=== PATIENT | female | born 2000 | race Caucasian/White ===

== ENCOUNTER 2018-02-26 07:06 | Emergency (ER) | payer OTHER ==
[2018-02-26 08:06] LABS: KETONE, URINE AUTO RFX NEGATIVE (NEGATIVE); LEUKOCYTE ESTERASE UR AUTO RFX NEGATIVE (NEGATIVE); NITRITE, URINE AUTO RFX NEGATIVE (NEGATIVE); RBC, URINE AUTO RFX 0 /HPF (0-3); SPECIFIC GRAVITY UR AUTO RFX 1.005 (1.002-1.035); SQUAM EPITHELIAL CELL UR AURFX 0 /HPF (0-6); WBC, URINE AUTO RFX 0 /HPF (0-3)
[2018-02-26 08:25] LABS: BASO # 0.1 10^3/uL (0.0-0.2); BASO % 0.8 % (0.0-1.0); EOS # 0.2 10^3/uL (0.0-0.50); EOS % 2.4 % (0.0-3.0); HEMATOCRIT 40.5 % (36.0-47.0); HEMOGLOBIN 13.1 g/dl (12.0-15.5); IMMATURE GRANULOCYTE % 0.1 % (0-3.0); LYMPH # 3.5 10^3/uL (1.5-6.5); LYMPH % 40.2 % (24.0-44.0); MEAN CORPUSCULAR HEMOGLOBIN 30.1 pg (27.0-33.0); MEAN CORPUSCULAR HGB CONC 32.3 g/dl (32.0-36.5); MEAN CORPUSCULAR VOLUME 93.1 fl (80.0-96.0); MONO # 0.8 10^3/uL (0.0-0.8); MONO % 8.9 % (0.0-5.0); NEUTROPHILS # 4.1 10^3/uL (1.8-7.7); NEUTROPHILS % 47.6 % (36.0-66.0); PLATELET COUNT, AUTOMATED 275 10^3/uL (150-450); RED BLOOD COUNT 4.35 10^6/uL (4.00-5.40); RED CELL DISTRIBUTION WIDTH 11.5 % (11.5-14.5); WHITE BLOOD COUNT 8.7 10^3/uL (4.0-10.0)
[2018-02-26 08:39] LABS: ANION GAP 9 MEQ/L (8-16); BLOOD UREA NITROGEN 16 MG/DL (7-18); CALCIUM LEVEL 8.8 MG/DL (8.5-10.1); CARBON DIOXIDE LEVEL 24 MEQ/L (21-32); CHLORIDE LEVEL 108 MEQ/L (98-107); CREATININE FOR GFR 0.86 MG/DL (0.55-1.30); GLUCOSE, FASTING 95 MG/DL (70-100); POTASSIUM SERUM 4.7 MEQ/L (3.5-5.1); SODIUM LEVEL 141 MEQ/L (136-145)
[2018-02-26 11:22] LABS: CHLAMYDIA DNA AMPLIFICATION NEGATIVE (NEGATIVE); GC DNA AMPLIFICATION NEGATIVE (NEGATIVE)
== END 2018-02-26 10:59 | disposition home or self-care (01) ==
LOC: M ED 07:06
DX: N76.0 Acute vaginitis (principal); R10.2 Pelvic and perineal pain
CPT/HCPCS: 76856

== ENCOUNTER 2018-03-08 00:33 | Emergency (ER) | payer OTHER | END 2018-03-08 01:55 | disposition home or self-care (01) | LOC: M ED 00:33 | DX: H57.89 Other specified disorders of eye and adnexa (principal) | CPT/HCPCS: 99283 ==

== ENCOUNTER 2018-03-09 19:00 | Emergency (ER) | payer OTHER ==
[2018-03-09] MEDS ORDERED: diphenhydrAMINE INJ 50MG/ML VIAL (J1200) As Ordered (19:06)
[2018-03-09] MEDS ORDERED: HALOPERIDOL 5 MG/ML VIAL (J1630) As Ordered (19:06)
[2018-03-09] MEDS ORDERED: LORazepam 2 MG/ML VIAL (J2060) As Ordered (19:40)
[2018-03-09] MEDS: HALOPERIDOL 5 MG/ML VIAL (J1630) IM (20:06)
[2018-03-09] MEDS: diphenhydrAMINE INJ 50MG/ML VIAL (J1200) IM (20:07)
[2018-03-09] MEDS: LORazepam 2 MG/ML VIAL (J2060) IM (20:21)
[2018-03-09] MEDS: NS 1,000 ML IV (20:22)
[2018-03-09 20:27] LABS: HEMATOCRIT 37.9 % (36.0-47.0); HEMOGLOBIN 12.8 g/dl (12.0-15.5); MEAN CORPUSCULAR HEMOGLOBIN 30.3 pg (27.0-33.0); MEAN CORPUSCULAR HGB CONC 33.8 g/dl (32.0-36.5); MEAN CORPUSCULAR VOLUME 89.8 fl (80.0-96.0); PLATELET COUNT, AUTOMATED 289 10^3/uL (150-450); RED BLOOD COUNT 4.22 10^6/uL (4.00-5.40); RED CELL DISTRIBUTION WIDTH 11.2 % (11.5-14.5); WHITE BLOOD COUNT 11.1 10^3/uL (4.0-10.0)
[2018-03-09 21:42] LABS: AMPHETAMINES LEVEL URINE NEGATIVE (NEGATIVE); BARBITURATES URINE NEGATIVE (NEGATIVE); BENZODIAZEPINES URINE NEGATIVE (NEGATIVE); CANNABINOIDS URINE POSITIVE (NEGATIVE); COCAINE METABOLITE URINE NEGATIVE (NEGATIVE); METHADONE URINE NEGATIVE (NEGATIVE); OPIATES URINE NEGATIVE (NEGATIVE); PHENCYCLIDINE URINE NEGATIVE (NEGATIVE)
[2018-03-09 21:45] LABS: HCG, SERUM QUALITATIVE NEGATIVE (NEGATIVE)
[2018-03-09 21:46] LABS: CONTROL LINE HCG INT CTR LINE PRESENT
[2018-03-09 22:14] LABS: ACETAMINOPHEN LEVEL < 2.0 UG/ML (10.0-30.0); ALBUMIN 4.5 GM/DL (3.2-5.2); ALBUMIN/GLOBULIN RATIO 1.18 (1.00-1.93); ALKALINE PHOSPHATASE 55 U/L (45-117); ALT/SGPT 25 U/L (12-78); ANION GAP 12 MEQ/L (8-16); AST/SGOT 27 U/L (7-37); BILIRUBIN,DIRECT 0.1 MG/DL (0.0-0.2); BILIRUBIN,TOTAL 0.4 MG/DL (0.2-1.0); BLOOD UREA NITROGEN 15 MG/DL (7-18); CALCIUM LEVEL 8.6 MG/DL (8.5-10.1); CARBON DIOXIDE LEVEL 23 MEQ/L (21-32); CHLORIDE LEVEL 108 MEQ/L (98-107); CPK CREATINE PHOSPHOKINASE 728 U/L (26-192); CREATININE FOR GFR 0.91 MG/DL (0.55-1.30); ETHYL ALCOHOL (ETHANOL) < 0.003 % (0.000-0.010); GLUCOSE, FASTING 66 MG/DL (70-100); POTASSIUM SERUM 3.7 MEQ/L (3.5-5.1); SALICYLATE LEVEL 2.7 MG/DL (5.0-30.0); SODIUM LEVEL 143 MEQ/L (136-145); TOTAL PROTEIN 8.3 GM/DL (6.4-8.2)
== END 2018-03-10 01:43 | disposition home or self-care (01) ==
LOC: M ED 03-10 01:43
DX: R45.86 Emotional lability (principal); E16.2 Hypoglycemia, unspecified
CPT/HCPCS: J1200

== ENCOUNTER 2018-03-10 21:27 | Inpatient (IN) | payer MEDICAID, OTHER ==
[2018-03-10] MEDS: HALOPERIDOL 5 MG/ML VIAL (J1630) IM ×2 (21:35→22:25)
[2018-03-10] MEDS: diphenhydrAMINE INJ 50MG/ML VIAL (J1200) IM (21:45)
[2018-03-10 23:01] LABS: HEMATOCRIT 37.8 % (36.0-47.0); HEMOGLOBIN 12.7 g/dl (12.0-15.5); MEAN CORPUSCULAR HGB CONC 33.6 g/dl (32.0-36.5); MEAN CORPUSCULAR VOLUME 89.4 fl (80.0-96.0); PLATELET COUNT, AUTOMATED 271 10^3/uL (150-450); RED BLOOD COUNT 4.23 10^6/uL (4.00-5.40); RED CELL DISTRIBUTION WIDTH 11.1 % (11.5-14.5); WHITE BLOOD COUNT 10.7 10^3/uL (4.0-10.0)
[2018-03-10 23:24] LABS: AMPHETAMINES LEVEL URINE NEGATIVE (NEGATIVE); BARBITURATES URINE NEGATIVE (NEGATIVE); BENZODIAZEPINES URINE NEGATIVE (NEGATIVE); CANNABINOIDS URINE POSITIVE (NEGATIVE); COCAINE METABOLITE URINE NEGATIVE (NEGATIVE); METHADONE URINE NEGATIVE (NEGATIVE); OPIATES URINE NEGATIVE (NEGATIVE); PHENCYCLIDINE URINE NEGATIVE (NEGATIVE)
[2018-03-10 23:36] LABS: ACETAMINOPHEN LEVEL < 2.0 UG/ML (10.0-30.0); ALBUMIN 4.4 GM/DL (3.2-5.2); ALBUMIN/GLOBULIN RATIO 1.16 (1.00-1.93); ALKALINE PHOSPHATASE 58 U/L (45-117); ALT/SGPT 33 U/L (12-78); ANION GAP 13 MEQ/L (8-16); AST/SGOT 68 U/L (7-37); BILIRUBIN,DIRECT 0.1 MG/DL (0.0-0.2); BILIRUBIN,TOTAL 0.4 MG/DL (0.2-1.0); BLOOD UREA NITROGEN 11 MG/DL (7-18); CALCIUM LEVEL 8.6 MG/DL (8.5-10.1); CARBON DIOXIDE LEVEL 20 MEQ/L (21-32); CHLORIDE LEVEL 110 MEQ/L (98-107); ETHYL ALCOHOL (ETHANOL) < 0.003 % (0.000-0.010); GLUCOSE, FASTING 73 MG/DL (70-100); POTASSIUM SERUM 3.7 MEQ/L (3.5-5.1); SALICYLATE LEVEL 2.6 MG/DL (5.0-30.0); SODIUM LEVEL 143 MEQ/L (136-145); THYROID STIMULATING HORMONE 0.606 uIU/ML (0.463-3.98); TOTAL PROTEIN 8.2 GM/DL (6.4-8.2)
[2018-03-11] MEDS ORDERED: ACETAMINOPHEN TAB 650MG DOSE (2X325MG) PO (06:30)
[2018-03-11] MEDS ORDERED: OLANZapine ORAL DISINTEGRATING TAB 5MG PO (06:30)
[2018-03-11] MEDS ORDERED: MAALOX 30 ML SUSP *UDC PO (06:30)
[2018-03-11] MEDS ORDERED: MOM 30ML SUSPENSION UDC PO (06:30)
[2018-03-11] MEDS: NICOTINE 21MG/24HR 1 EA TRANSDERMAL TD (09:00)
[2018-03-11] MEDS: LORazepam 2 MG TAB PO (09:27)
[2018-03-11 15:49] LABS: KETONE, URINE AUTO RFX 2+ mg/dL (NEGATIVE); LEUKOCYTE ESTERASE UR AUTO RFX NEGATIVE (NEGATIVE); MUCUS, URINE RFX SMALL (NEGATIVE); NITRITE, URINE AUTO RFX NEGATIVE (NEGATIVE); RBC, URINE AUTO RFX 0 /HPF (0-3); SPECIFIC GRAVITY UR AUTO RFX 1.018 (1.002-1.035); SQUAM EPITHELIAL CELL UR AURFX 9 /HPF (0-6); WBC, URINE AUTO RFX 2 /HPF (0-3)
[2018-03-11] MEDS: hydrOXYzine 50 MG TAB PO (19:44)
[2018-03-12 07:26] LABS: HEMATOCRIT 40.2 % (36.0-47.0); HEMOGLOBIN 13.5 g/dl (12.0-15.5); MEAN CORPUSCULAR HEMOGLOBIN 29.9 pg (27.0-33.0); MEAN CORPUSCULAR HGB CONC 33.6 g/dl (32.0-36.5); MEAN CORPUSCULAR VOLUME 88.9 fl (80.0-96.0); PLATELET COUNT, AUTOMATED 319 10^3/uL (150-450); RED BLOOD COUNT 4.52 10^6/uL (4.00-5.40); RED CELL DISTRIBUTION WIDTH 11.1 % (11.5-14.5); WHITE BLOOD COUNT 9.4 10^3/uL (4.0-10.0)
[2018-03-12 08:04] LABS: ALBUMIN 4.3 GM/DL (3.2-5.2); ALBUMIN/GLOBULIN RATIO 1.08 (1.00-1.93); ALKALINE PHOSPHATASE 64 U/L (45-117); ALT/SGPT 41 U/L (12-78); ANION GAP 10 MEQ/L (8-16); AST/SGOT 66 U/L (7-37); BILIRUBIN,TOTAL 0.4 MG/DL (0.2-1.0); BLOOD UREA NITROGEN 11 MG/DL (7-18); CALCIUM LEVEL 8.9 MG/DL (8.5-10.1); CARBON DIOXIDE LEVEL 24 MEQ/L (21-32); CHLORIDE LEVEL 107 MEQ/L (98-107); CREATININE FOR GFR 0.92 MG/DL (0.55-1.30); GLUCOSE, FASTING 89 MG/DL (70-100); POTASSIUM SERUM 3.6 MEQ/L (3.5-5.1); SODIUM LEVEL 141 MEQ/L (136-145); TOTAL PROTEIN 8.3 GM/DL (6.4-8.2)
[2018-03-12] MEDS: hydrOXYzine 50 MG TAB PO ×2 (09:12→15:58)
[2018-03-12 09:31] LABS: HEPATITIS B SURFACE ANTIGEN NEGATIVE (NEGATIVE)
[2018-03-12 09:57] LABS: HEPATITIS C VIRUS ABY INDEX < 0.0 INDEX (<0.8)
[2018-03-12 09:58] LABS: HEPATITIS B CORE ANTIBODY IGM NEGATIVE (NEGATIVE)
[2018-03-12 10:00] LABS: HEPATITIS A ANTIBODY IGM NEGATIVE (NEGATIVE)
[2018-03-12] MEDS ORDERED: PALIPERIDONE 3 MG ER TAB (INVEGA) PO (14:00)
[2018-03-12] MEDS: PALIPERIDONE 3 MG ER TAB (INVEGA) PO (20:53)
[2018-03-12] MEDS: traZODone 50 MG TAB PO (20:53)
[2018-03-13 07:54] LABS: BASO # 0.1 10^3/uL (0.0-0.2); BASO % 0.9 % (0.0-1.0); EOS # 0.3 10^3/uL (0.0-0.50); EOS % 3.5 % (0.0-3.0); HEMATOCRIT 40.7 % (36.0-47.0); HEMOGLOBIN 13.7 g/dl (12.0-15.5); IMMATURE GRANULOCYTE % 0.1 % (0-3.0); LYMPH # 4.4 10^3/uL (1.5-6.5); LYMPH % 48.4 % (24.0-44.0); MEAN CORPUSCULAR HEMOGLOBIN 30.2 pg (27.0-33.0); MEAN CORPUSCULAR HGB CONC 33.7 g/dl (32.0-36.5); MEAN CORPUSCULAR VOLUME 89.8 fl (80.0-96.0); MONO # 0.9 10^3/uL (0.0-0.8); MONO % 10.1 % (0.0-5.0); NEUTROPHILS # 3.4 10^3/uL (1.8-7.7); PLATELET COUNT, AUTOMATED 311 10^3/uL (150-450); RED BLOOD COUNT 4.53 10^6/uL (4.00-5.40); RED CELL DISTRIBUTION WIDTH 11.4 % (11.5-14.5); WHITE BLOOD COUNT 9.1 10^3/uL (4.0-10.0)
[2018-03-13 08:01] LABS: ALBUMIN 4.5 GM/DL (3.2-5.2); ALBUMIN/GLOBULIN RATIO 1.15 (1.00-1.93); ALKALINE PHOSPHATASE 61 U/L (45-117); ALT/SGPT 41 U/L (12-78); ANION GAP 10 MEQ/L (8-16); AST/SGOT 43 U/L (7-37); BILIRUBIN,TOTAL 0.4 MG/DL (0.2-1.0); BLOOD UREA NITROGEN 12 MG/DL (7-18); CALCIUM LEVEL 9.6 MG/DL (8.5-10.1); CARBON DIOXIDE LEVEL 27 MEQ/L (21-32); CHLORIDE LEVEL 104 MEQ/L (98-107); CREATININE FOR GFR 0.95 MG/DL (0.55-1.30); GLUCOSE, FASTING 91 MG/DL (70-100); POTASSIUM SERUM 4.4 MEQ/L (3.5-5.1); SODIUM LEVEL 141 MEQ/L (136-145); TOTAL PROTEIN 8.4 GM/DL (6.4-8.2)
[2018-03-13] MEDS ORDERED: PALIPERIDONE 3 MG ER TAB (INVEGA) PO (09:00)
[2018-03-13] MEDS: OLANZapine ORAL DISINTEGRATING TAB 5MG PO (11:45)
[2018-03-13] MEDS: PALIPERIDONE 3 MG ER TAB (INVEGA) PO ×2 (11:45→20:30)
[2018-03-13 12:55] LABS: CHOLESTEROL LEVEL 163 MG/DL (<200); CHOLESTEROL RISK RATIO 3.018 (<5); HDL CHOLESTEROL 54 MG/DL (>40); LDL CHOLESTEROL 87 MG/DL (<100); NON-HDL-C 109 MG/DL; TRIGLYCERIDES LEVEL 111 MG/DL (<150)
[2018-03-13] MEDS: traZODone 50 MG TAB PO (21:07)
[2018-03-14] MEDS: PALIPERIDONE 3 MG ER TAB (INVEGA) PO ×2 (08:30→21:03)
[2018-03-14] MEDS: OLANZapine ORAL DISINTEGRATING TAB 5MG PO (08:30)
[2018-03-15] MEDS: OLANZapine ORAL DISINTEGRATING TAB 5MG PO (07:09)
[2018-03-15] MEDS: PALIPERIDONE 3 MG ER TAB (INVEGA) PO ×2 (09:27→20:20)
[2018-03-16] MEDS: OLANZapine ORAL DISINTEGRATING TAB 5MG PO (07:09)
[2018-03-16] MEDS: PALIPERIDONE 3 MG ER TAB (INVEGA) PO ×2 (09:47→20:18)
[2018-03-16] MEDS: traZODone 50 MG TAB PO (20:18)
[2018-03-17] MEDS: PALIPERIDONE 3 MG ER TAB (INVEGA) PO ×2 (08:02→20:28)
[2018-03-17] MEDS: OLANZapine ORAL DISINTEGRATING TAB 5MG PO (11:18)
[2018-03-17] MEDS: traZODone 50 MG TAB PO (20:28)
[2018-03-18] MEDS: PALIPERIDONE 3 MG ER TAB (INVEGA) PO (08:15)
[2018-03-18] MEDS: OLANZapine ORAL DISINTEGRATING TAB 5MG PO (09:32)
== END 2018-03-18 11:17 | disposition home or self-care (01) | DRG 753 ==
LOC: M ED INP 03-11 06:16 → M PSY 03-14 15:56 → M ED 21:27 → M PSY 03-12 16:26
DX: F31.9 Bipolar disorder, unspecified (principal); F70 Mild intellectual disabilities; D72.829 Elevated white blood cell count, unspecified; F12.90 Cannabis use, unspecified, uncomplicated

== ENCOUNTER 2018-07-10 06:13 | Emergency (ER) | payer MEDICAID, OTHER ==
[~2018-07-10] VITALS: Ht 160 cm; Wt 70.5 kg
[2018-07-10 06:13] VITALS: BP 126/69
[~2018-07-10 06:13] MED LIST: FLAG500T PO; IBUP-1022 PO; INVE3TAB2 PO; MULTCAP PO; NAPR-50 PO; PALI1TAB2 PO; ULTR50TA8 PO
[2018-07-10] MEDS ORDERED: ONDANSETRON 4MG/2ML VIAL (J2405) IV ONE (07:00)
[2018-07-10] MEDS ORDERED: NS 1,000 ML IV ONE (07:00)
[2018-07-10 08:30] LABS: BASO # 0.1 10^3/uL (0.0-0.2); BASO % 0.8 % (0.0-1.0); EOS # 0.3 10^3/uL (0.0-0.50); EOS % 3.1 % (0.0-3.0); HEMATOCRIT 41.1 % (36.0-47.0); HEMOGLOBIN 13.5 g/dl (12.0-15.5); LYMPH # 2.5 10^3/uL (1.5-6.5); LYMPH % 30.2 % (24.0-44.0); MEAN CORPUSCULAR HEMOGLOBIN 30.2 pg (27.0-33.0); MEAN CORPUSCULAR HGB CONC 32.8 g/dl (32.0-36.5); MEAN CORPUSCULAR VOLUME 91.9 fl (80.0-96.0); MONO # 0.8 10^3/uL (0.0-0.8); MONO % 9.5 % (0.0-5.0); NEUTROPHILS # 4.7 10^3/uL (1.8-7.7); NEUTROPHILS % 56.2 % (36.0-66.0); PLATELET COUNT, AUTOMATED 294 10^3/uL (150-450); RED BLOOD COUNT 4.47 10^6/uL (4.00-5.40); WHITE BLOOD COUNT 8.3 10^3/uL (4.0-10.0)
[2018-07-10 09:01] LABS: HCG, SERUM QUALITATIVE NEGATIVE (NEGATIVE)
[2018-07-10 09:03] LABS: ALT/SGPT 17 U/L (12-78); BILIRUBIN,TOTAL 0.4 MG/DL (0.2-1.0); BLOOD UREA NITROGEN 11 MG/DL (7-18); CALCIUM LEVEL 9.5 MG/DL (8.5-10.1); CARBON DIOXIDE LEVEL 27 MEQ/L (21-32); CHLORIDE LEVEL 105 MEQ/L (98-107); CREATININE FOR GFR 0.85 MG/DL (0.55-1.30); GLUCOSE, FASTING 106 MG/DL (70-100); POTASSIUM SERUM 4.1 MEQ/L (3.5-5.1); SODIUM LEVEL 138 MEQ/L (136-145)
[2018-07-10 09:04] LABS: ALBUMIN 4.4 GM/DL (3.2-5.2); BILIRUBIN,DIRECT 0.1 MG/DL (0.0-0.2); LIPASE 99 U/L (73-393); TOTAL PROTEIN 8.3 GM/DL (6.4-8.2)
[2018-07-10 10:13] LABS: AMPHETAMINES LEVEL URINE NEGATIVE (NEGATIVE); BARBITURATES URINE NEGATIVE (NEGATIVE); BENZODIAZEPINES URINE NEGATIVE (NEGATIVE); CANNABINOIDS URINE POSITIVE (NEGATIVE); COCAINE METABOLITE URINE NEGATIVE (NEGATIVE); METHADONE URINE NEGATIVE (NEGATIVE); OPIATES URINE NEGATIVE (NEGATIVE); PHENCYCLIDINE URINE NEGATIVE (NEGATIVE)
--- NOTE | 2018-07-10 10:20 | REP ---
Pelvic sonography: History: Left lower quadrant pain times 2 months. Comparison study February 26, 2018. No abnormality. Sonographic findings: Transabdominal scanning is performed. The urinary bladder is essentially empty which does inhibited visualization somewhat. The patient declined transvaginal imaging. Uterine dimensions are normal at this point 8 x 2.6 x 5.1 cm. Endometrial echo is normal and 0.2 cm thick. No focal uterine mass is seen. No free fluid is seen. Normal ovaries seen bilaterally. The right ovary measures 2.4 x 1.6 x 1.5 cm. Left ovary measures 3.2 x 1.6 x 2.3 cm. Impression: No abnormality noted. Electronically Signed by Pasha Cavazos MD 07/10/2018 10:12 A
== END 2018-07-10 10:31 | disposition left against medical advice (07) ==
LOC: M ED 06:13
DX: R10.2 Pelvic and perineal pain (principal); R11.0 Nausea; R42 Dizziness and giddiness

== ENCOUNTER → 2018-10-02 | Outpatient (CLI) | payer MEDICAID, OTHER ==
[~2018-10-02] MED LIST changes: -NAPR-50 PO; +NAPR-837 PO
[2018-10-02 13:52] LABS: HEMATOCRIT 40.8 % (36.0-47.0); HEMOGLOBIN 13.1 g/dl (12.0-15.5); MEAN CORPUSCULAR HGB CONC 32.1 g/dl (32.0-36.5); MEAN CORPUSCULAR VOLUME 93.4 fl (80.0-96.0); PLATELET COUNT, AUTOMATED 330 10^3/uL (150-450); RED BLOOD COUNT 4.37 10^6/uL (4.00-5.40); WHITE BLOOD COUNT 9.4 10^3/uL (4.0-10.0)
[2018-10-02 14:00] LABS: HCG, SERUM QUALITATIVE NEGATIVE (NEGATIVE)
[2018-10-02 14:31] LABS: ALT/SGPT 23 U/L (12-78); BILIRUBIN,TOTAL 0.2 MG/DL (0.2-1.0); BLOOD UREA NITROGEN 14 MG/DL (7-18); CALCIUM LEVEL 8.8 MG/DL (8.5-10.1); CARBON DIOXIDE LEVEL 29 MEQ/L (21-32); CHLORIDE LEVEL 107 MEQ/L (98-107); CREATININE FOR GFR 0.76 MG/DL (0.55-1.30); FREE T4 1.09 NG/DL (0.78-1.33); GLUCOSE, FASTING 91 MG/DL (70-100); POTASSIUM SERUM 4.5 MEQ/L (3.5-5.1); SODIUM LEVEL 139 MEQ/L (136-145); TOTAL PROTEIN 8.3 GM/DL (6.4-8.2)
== END ==
LOC: M SMT 10:48
PROVIDERS: ATTEND Advanced Practice Midwife
DX: R10.2 Pelvic and perineal pain (principal); N92.6 Irregular menstruation, unspecified

== ENCOUNTER → 2018-11-12 | Outpatient (CLI) | payer OTHER, MEDICAID | LOC: M SMT 09:36 | PROVIDERS: ATTEND Advanced Practice Midwife | DX: N64.52 Nipple discharge (principal); N64.4 Mastodynia ==

== ENCOUNTER → 2019-01-14 | Outpatient (CLI) | payer OTHER, MEDICAID ==
--- NOTE | 2019-01-14 16:48 | REP ---
Pelvic Sonography: History: Negative test. Pelvic pain. Question . Findings: Transabdominal and transvaginal scanning are performed. Uterine dimensions are normal 7.1 x 3.3 x 3.7 cm. Endometrial echo is 0.5 cm thick and centrally placed. No free fluid in the cul-de-sac. Visualized bladder ng are smooth. The left ovary could not be seen. The right ovary is normal measuring 3.9 x 2.2 x 2.3 cm. Scanning, particularly endovaginal scanning was somewhat abbreviated and limited due to patient anxiety and difficulty tolerating the examination. Impression: No abnormality noted. The left ovary could not be visualized transabdominally or transvaginally. Normal uterus and right ovary seen. No free fluid. Electronically Signed by Pasha Cavazos MD 01/14/2019 09:07 P
== END ==
LOC: M RAD 14:53
PROVIDERS: ATTEND Nurse Practitioner Family
DX: Z32.02 Encounter for pregnancy test, result negative (principal); R10.9 Unspecified abdominal pain

== ENCOUNTER 2019-02-06 00:45 | Emergency (ER) | payer MEDICAID, OTHER ==
[~2019-02-06] VITALS: Ht 160 cm; Wt 72.1 kg
[2019-02-06 02:23] LABS: AMPHETAMINES LEVEL URINE NEGATIVE (NEGATIVE); BARBITURATES URINE NEGATIVE (NEGATIVE); BENZODIAZEPINES URINE NEGATIVE (NEGATIVE); CANNABINOIDS URINE NEGATIVE (NEGATIVE); COCAINE METABOLITE URINE NEGATIVE (NEGATIVE); METHADONE URINE NEGATIVE (NEGATIVE); OPIATES URINE NEGATIVE (NEGATIVE); PHENCYCLIDINE URINE NEGATIVE (NEGATIVE)
[2019-02-06] MEDS ORDERED: diphenhydrAMINE INJ 50MG/ML VIAL (J1200) As Ordered ONE (02:36)
[2019-02-06] MEDS ORDERED: HALOPERIDOL 5 MG/ML VIAL (J1630) As Ordered ONE (02:37)
[2019-02-06] MEDS ORDERED: LORazepam 2 MG/ML VIAL (J2060) As Ordered ONE (02:37)
[2019-02-06] MEDS ORDERED: HALOPERIDOL 5 MG/ML VIAL (J1630) IM ONE (02:45)
[2019-02-06] MEDS ORDERED: LORazepam 2 MG/ML VIAL (J2060) IM ONE (02:45)
[2019-02-06] MEDS ORDERED: diphenhydrAMINE INJ 50MG/ML VIAL (J1200) IM ONE (02:45)
[2019-02-06 02:49] LABS: HEMATOCRIT 41.7 % (36.0-47.0); HEMOGLOBIN 13.7 g/dl (12.0-15.5); MEAN CORPUSCULAR HEMOGLOBIN 30.2 pg (27.0-33.0); MEAN CORPUSCULAR HGB CONC 32.9 g/dl (32.0-36.5); MEAN CORPUSCULAR VOLUME 91.9 fl (80.0-96.0); PLATELET COUNT, AUTOMATED 419 10^3/uL (150-450); RED BLOOD COUNT 4.54 10^6/uL (4.00-5.40); WHITE BLOOD COUNT 17.4 10^3/uL (4.0-10.0)
[2019-02-06] MEDS ORDERED: LORazepam 2 MG/ML VIAL (J2060) IM STA (03:11)
[2019-02-06] MEDS ORDERED: HALOPERIDOL 5 MG/ML VIAL (J1630) IM STA (03:11)
[2019-02-06 03:32] LABS: ACETAMINOPHEN LEVEL < 2.0 UG/ML (10.0-30.0); ALBUMIN 4.4 GM/DL (3.2-5.2); ALT/SGPT 32 U/L (12-78); BILIRUBIN,DIRECT < 0.1 MG/DL (0.0-0.2); BILIRUBIN,TOTAL 0.2 MG/DL (0.2-1.0); BLOOD UREA NITROGEN 10 MG/DL (7-18); CALCIUM LEVEL 9.4 MG/DL (8.5-10.1); CARBON DIOXIDE LEVEL 22 MEQ/L (21-32); CHLORIDE LEVEL 106 MEQ/L (98-107); CREATININE FOR GFR 1.16 MG/DL (0.55-1.30); ETHYL ALCOHOL (ETHANOL) < 0.003 % (0.000-0.010); GLUCOSE, FASTING 118 MG/DL (70-100); POTASSIUM SERUM 3.9 MEQ/L (3.5-5.1); SODIUM LEVEL 139 MEQ/L (136-145); TOTAL PROTEIN 8.9 GM/DL (6.4-8.2)
[2019-02-06 04:37] LABS: BASO # 0.1 10^3/uL (0.0-0.2); BASO % 0.7 % (0.0-1.0); EOS # 0.5 10^3/uL (0.0-0.5); EOS % 2.8 % (0.0-3.0); LYMPH % 34.3 % (24.0-44.0); MONO # 1.9 10^3/uL (0.0-0.8); MONO % 10.6 % (0.0-5.0); NEUTROPHILS # 8.9 10^3/uL (1.5-8.5); NEUTROPHILS % 51.3 % (36.0-66.0)
--- NOTE | 2019-02-06 07:22 | ECGEPIP ---
[facility] - ED Test Date: 2019-02-06 Pat Name: JUAN FORD Department: Room: - Gender: Female Payroll Benefits Administrator: : 2000 Requested By: SALOME Liz Order Number: [id number] Reading MD: Shukri Currie Measurements Intervals [place] Rate: 85 P: 9 DE: 157 QRS: 65 QRSD: 79 T: 42 QT: 359 QTc: 429 Interpretive Statements SINUS RHYTHM SIMILAR TO 03/11/18 Electronically Signed on 02-06-2019 7:22:04 EDT by Shukri Currie
[2019-02-06 13:14] LABS: HEMATOCRIT 39.5 % (36.0-47.0); MEAN CORPUSCULAR HEMOGLOBIN 30.1 pg (27.0-33.0); MEAN CORPUSCULAR HGB CONC 32.9 g/dl (32.0-36.5); MEAN CORPUSCULAR VOLUME 91.4 fl (80.0-96.0); RED BLOOD COUNT 4.32 10^6/uL (4.00-5.40)
[2019-02-06 13:17] LABS: PLATELET COUNT, AUTOMATED 291 10^3/uL (150-450)
[2019-02-06 15:36] VITALS: BP 132/70
== END 2019-02-06 15:40 ==
LOC: M ED 00:45
DX: F23 Brief psychotic disorder (principal); F99 Mental disorder, not otherwise specified; Z78.1 Physical restraint status
CPT/HCPCS: 80048; 80076; 80307; 81001; 84443; 85027; 93005; 96372; 99285; G0480; J1200; J1630; J2060

== ENCOUNTER → 2019-03-16 | Outpatient (CLI) | payer OTHER ==
[2019-03-16 18:12] LABS: HEMATOCRIT 39.3 % (36.0-47.0); HEMOGLOBIN 12.5 g/dl (12.0-15.5); MEAN CORPUSCULAR HEMOGLOBIN 29.3 pg (27.0-33.0); MEAN CORPUSCULAR HGB CONC 31.8 g/dl (32.0-36.5); PLATELET COUNT, AUTOMATED 315 10^3/uL (150-450); RED BLOOD COUNT 4.27 10^6/uL (4.00-5.40); WHITE BLOOD COUNT 9.1 10^3/uL (4.0-10.0)
[2019-03-16 18:41] LABS: HCG, SERUM QUALITATIVE NEGATIVE (NEGATIVE)
[2019-03-16 18:49] LABS: ALBUMIN 3.9 GM/DL (3.2-5.2); ALT/SGPT 36 U/L (12-78); BILIRUBIN,DIRECT < 0.1 MG/DL (0.0-0.2); BILIRUBIN,TOTAL 0.2 MG/DL (0.2-1.0); BLOOD UREA NITROGEN 12 MG/DL (7-18); CARBON DIOXIDE LEVEL 26 MEQ/L (21-32); CHLORIDE LEVEL 104 MEQ/L (98-107); CREATININE FOR GFR 0.89 MG/DL (0.55-1.30); GLUCOSE, FASTING 83 MG/DL (70-100); POTASSIUM SERUM 4.2 MEQ/L (3.5-5.1); SODIUM LEVEL 138 MEQ/L (136-145); TOTAL PROTEIN 8.2 GM/DL (6.4-8.2)
[2019-03-16 18:51] LABS: PROLACTIN 43.1 NG/ML
[2019-03-16 18:55] LABS: HEMOGLOBIN A1c 5.1 %
== END ==
LOC: M SMT 14:37
DX: F25.0 Schizoaffective disorder, bipolar type (principal)

== ENCOUNTER → 2019-05-19 | Outpatient (REF) | payer OTHER ==
[2019-05-19 12:03] LABS: CORTISOL AM 20.5 UG/DL (4.3-22.4); PROLACTIN 24.6 NG/ML
== END ==
LOC: M LABDRAW1 08:24
PROVIDERS: ATTEND Nurse Practitioner Family
DX: E22.1 Hyperprolactinemia (principal)

== ENCOUNTER → 2020-06-08 | Outpatient (REF) | payer OTHER ==
[2020-06-09 00:17] LABS: URINE PREG TEST NEGATIVE (NEGATIVE)
== END ==
LOC: M LAB 23:49
PROVIDERS: ATTEND Physician Assistant
DX: N91.2 Amenorrhea, unspecified (principal); L98.9 Disorder of the skin and subcutaneous tissue, unspecified

== ENCOUNTER 2020-07-07 23:42 | Inpatient (IN) | payer MEDICAID, OTHER ==
[~2020-07-07] VITALS: Ht 157.5 cm; Wt 99.3 kg
--- OUTSIDE RECORDS SUMMARY | 2020-07-07 23:49 | CCD ---
Author Author [facility] Organization [facility] Address Unknown Phone Unavailable Care Team Providers Care Auto Clocks Repairer Name Role Phone Agusto Ellis MD Unavailable Unavailable Agusto Ellis MD Unavailable Unavailable Agusto Ellis MD Unavailable Unavailable Agusto Ellis MD Unavailable Unavailable Agusto Ellis MD Unavailable Unavailable Agusto Ellis MD Unavailable Unavailable Agusto Ellis MD Unavailable Unavailable Agusto Ellis MD Unavailable Unavailable Agusto Ellis MD Unavailable Unavailable Agusto Ellis MD Unavailable Unavailable Agusto Ellis MD Unavailable Unavailable Agusto Ellis MD Unavailable Unavailable Agusto Ellis MD Unavailable Unavailable Agusto Ellis MD Unavailable Unavailable Agusto Ellis MD Unavailable Unavailable Agusto Ellis MD Unavailable Unavailable Agusto Ellis MD Unavailable Unavailable Agusto Ellis MD Unavailable Unavailable Agusto Ellis MD Unavailable Unavailable Agusto Ellis MD Unavailable Unavailable Agusto Ellis MD Unavailable Unavailable Agusto Ellis MD Unavailable Unavailable Agusto Ellis MD Unavailable Unavailable Agusto Ellis MD Unavailable Unavailable Agusto Ellis MD Unavailable Unavailable Agusto Ellis MD Unavailable Unavailable Agusto Ellis MD Unavailable Unavailable Agusto Ellis MD Unavailable Unavailable Agusto Ellis MD Unavailable Unavailable Agusto Ellis MD Unavailable Unavailable Agusto Ellis MD Unavailable Unavailable Agusto Ellis MD Unavailable Unavailable Agusto Ellis MD Unavailable Unavailable Agusto Ellis MD Unavailable Unavailable Agusto Ellis MD Unavailable Unavailable Agusto Ellis MD Unavailable Unavailable Agusto Ellis MD Unavailable Unavailable Agusto Ellis MD Unavailable Unavailable Agusto Ellis MD Unavailable Unavailable Agusto Ellis MD Unavailable Unavailable Agusto Ellis MD Unavailable Unavailable Agusto Ellis MD Unavailable Unavailable Agusto Ellis MD Unavailable Unavailable Agusto Ellis MD Unavailable Unavailable Agusto Ellis MD Unavailable Unavailable Agusto Ellis MD Unavailable Unavailable Agusto Ellis MD Unavailable Unavailable Agusto Ellis MD Unavailable Unavailable Agusto Ellis MD Unavailable Unavailable Agusto Ellis MD Unavailable Unavailable Agusto Ellis MD Unavailable Unavailable Agusto Ellis MD Unavailable Unavailable Agusto Ellis MD Unavailable Unavailable Agusto Ellis MD Unavailable Unavailable Agusto Ellis MD Unavailable Unavailable Agusto Ellis MD Unavailable Unavailable Agusto Ellis MD Unavailable Unavailable Agusto Ellis MD Unavailable Unavailable Agusto Ellis MD Unavailable Unavailable Agusto Ellis MD Unavailable Unavailable Agusto Ellis MD Unavailable Unavailable Agusto Ellis MD Unavailable Unavailable Agusto Ellis MD Unavailable Unavailable Agusto Ellis MD Unavailable Unavailable Agusto Ellis MD Unavailable Unavailable Agusto Ellis MD Unavailable Unavailable Agusto Ellis MD Unavailable Unavailable Agusto Ellis MD Unavailable Unavailable Agusto Ellis MD Unavailable Unavailable Agusto Ellis MD Unavailable Unavailable Agusto Ellis MD Unavailable Unavailable Agusto Ellis MD Unavailable Unavailable Agusto Ellis MD Unavailable Unavailable Agusto Ellis MD Unavailable Unavailable Agusto Ellis MD Unavailable Unavailable Agusto Ellis MD Unavailable Unavailable Agusto Ellis MD Unavailable Unavailable Agusto Ellis MD Unavailable Unavailable Agusto Ellis MD Unavailable Unavailable Agusto Ellis MD Unavailable Unavailable Agusto Ellis MD Unavailable Unavailable Agusto Ellis MD Unavailable Unavailable Agusto Ellis MD Unavailable Unavailable Agusto Ellis MD Unavailable Unavailable Agusto Ellis MD Unavailable Unavailable Agusto Ellis MD Unavailable Unavailable Agusto Ellis MD Unavailable Unavailable Agusto Ellis MD Unavailable Unavailable Agusto Ellis MD Unavailable Unavailable Mohini TIJERINA MD Unavailable Unavailable Mohini TIJERINA MD Unavailable Unavailable Mohini TIJERINA MD Unavailable Unavailable Mohini TIJERINA MD Unavailable Unavailable Mohini TIJERINA MD Unavailable Unavailable Mohini TIJERINA MD Unavailable Unavailable Mohini TIJERINA MD Unavailable Unavailable Mohini TIJERINA MD Unavailable Unavailable Mohini TIJERINA MD Unavailable Unavailable Mohini TIJERINA MD Unavailable Unavailable Mohini TIJERINA MD Unavailable Unavailable Mohini TIJERINA MD Unavailable Unavailable Mohini TIJERINA MD Unavailable Unavailable Mohini TIJERINA MD Unavailable Unavailable Mohini TIJERINA MD Unavailable Unavailable SUJATAMohini MURDOCK MD Unavailable Unavailable Mohini TIJERINA MD Unavailable Unavailable Mohini TIJERINA MD Unavailable Unavailable Mohini TIJERINA MD Unavailable Unavailable Mohini TIJERINA MD Unavailable Unavailable Mohini TIJERINA MD Unavailable Unavailable Mohini TIJERINA MD Unavailable Unavailable Mohini TIJERINA MD Unavailable Unavailable Mohini TIJERINA MD Unavailable Unavailable Mohini TIJERINA MD Unavailable Unavailable Mohini TIJERINA MD Unavailable Unavailable Mohini TIJERINA MD Unavailable Unavailable Mohini TIJERINA MD Unavailable Unavailable Mohini TIJERINA MD Unavailable Unavailable Mohini TIJERINA MD Unavailable Unavailable Mohini TIJERINA MD Unavailable Unavailable Mohini TIJERINA MD Unavailable Unavailable Mohini TIJERINA MD Unavailable Unavailable Mohini TIJERINA MD Unavailable Unavailable Mohini TIJERINA MD Unavailable Unavailable Mohini TIJERINA MD Unavailable Unavailable Mohini TIJERINA MD Unavailable Unavailable Mohini TIJERINA MD Unavailable Unavailable Mohini TIJERINA MD Unavailable Unavailable Mohini TIJERINA MD Unavailable Unavailable Mohini TIJERINA MD Unavailable Unavailable Mohini TIJERINA MD Unavailable Unavailable Mohini TIJERINA MD Unavailable Unavailable Mohini TIJERINA MD Unavailable Unavailable Mohini TIJERINA MD Unavailable Unavailable Mohini TIJERINA MD Unavailable Unavailable Mohini TIJERINA MD Unavailable Unavailable Mohini TIJERINA MD Unavailable Unavailable Mohini TIJERINA MD Unavailable Unavailable Mohini TIJERINA MD Unavailable Unavailable Mohini TIJERINA MD Unavailable Unavailable Mohini TIJERINA MD Unavailable Unavailable Mohini TIJERINA MD Unavailable Unavailable Mohini TIJERINA MD Unavailable Unavailable Mohini TIJERINA MD Unavailable Unavailable Mohini TIJERINA MD Unavailable Unavailable Mohini TIJERINA MD Unavailable Unavailable SUJATA, T RADHA ORTEGA Unavailable Unavailable SUJATA, T RADHA ORTEGA Unavailable Unavailable SUJATA, T RADHA MD Unavailable Unavailable SUJATA, T RADHA MD Unavailable Unavailable SUJATA, T RADHA MD Unavailable Unavailable SUJATA, T RADHA MD Unavailable Unavailable SUJATA, T RADHA MD Unavailable Unavailable SUJATA, T RADHA MD Unavailable Unavailable SUJATA, T RADHA MD Unavailable Unavailable SUJATA, T RADHA MD Unavailable Unavailable SUJATA, T RADHA MD Unavailable Unavailable SUJATA, T RADHA MD Unavailable Unavailable SUJATA, T RADHA MD Unavailable Unavailable SUJATA, T RADHA MD Unavailable Unavailable SUJATA, T RADHA MD Unavailable Unavailable SUJATA, T RADHA MD Unavailable Unavailable SUJATA, T RADHA MD Unavailable Unavailable SUJATA, T RADHA MD Unavailable Unavailable SUJATA, T RADHA MD Unavailable Unavailable SUJATA, T RADHA MD Unavailable Unavailable SUJATA, T RADHA MD Unavailable Unavailable SUJATA, T RADHA MD Unavailable Unavailable SUJATA, T RADHA MD Unavailable Unavailable SUJATA, T RADHA MD Unavailable Unavailable SUJATA, T RADHA MD Unavailable Unavailable SUJATA, T RADHA MD Unavailable Unavailable Re-disclosure Warning The records that you are about to access may contain information from federally-assisted alcohol or drug abuse programs. If such information is present, then the following federally mandated warning applies: This information has been disclosed to you from records protected by federal confidentiality rules (42 CFR part 2). The federal rules prohibit you from making any further disclosure of this information unless further disclosure is expressly permitted by the written consent of the person to whom it pertains or as otherwise permitted by 42 CFR part 2. A general authorization for the release of medical or other information is NOT sufficient for this purpose. The Federal rules restrict any use of the information to criminally investigate or prosecute any alcohol or drug abuse patient.The records that you are about to access may contain highly sensitive health information, the redisclosure of which is protected by Article 27-F of the [facility] Public Health law. If you continue you may have access to information: Regarding HIV / AIDS; Provided by facilities licensed or operated by the [facility] Office of Mental Health; or Provided by the [facility] Office for People With Developmental Disabilities. If such information is present, then the following [facility] mandated warning applies: This information has been disclosed to you from confidential records which are protected by state law. State law prohibits you from making any further disclosure of this information without the specific written consent of the person to whom it pertains, or as otherwise permitted by law. Any unauthorized further disclosure in violation of state law may result in a fine or long term sentence or both. A general authorization for the release of medical or other information is NOT sufficient authorization for further disc losure. Family History Family Member Name Family Member Gender Family Member Status Date o f Status Description Data Source(s) Unknown Unknown Problem [facility] ([facility] Unknown Female Problem [facility] ([facility] ) Encounters Encounter Providers Location Date Indications Data Source(s ) Outpatient Attender: Brad Ellis MD 03/14/2020 08:49:02 AM EDT [facility] Outpatient Attender: Brad Ellis MD 03/11/2020 03:15:00 PM EDT [facility] Outpatient Attender: Brad Ellis MD 02/22/2020 12:02:01 AM EDT [facility] Outpatient Attender: Brad Ellis MD 02/05/2020 12:02:00 AM EDT [facility] Outpatient Attender: Brad Ellis MD 02/04/2020 11:19:01 AM EDT [facility] Outpatient Attender: Brad Ellis MD 02/04/2020 11:18:01 AM EDT [facility] Outpatient Attender: RADHA TIJERINA MD 01/01/2020 03:09:00 [facility] Outpatient Attender: RADHA TIJERINA MD 12/01/2019 10:37:01 A [facility] Outpatient Attender: RADHA TIJERINA MD [facility]: [facility]11/[facility] MD 09/09/2019 [facility] RADHA TIJERINA MD FP 08/12/2019 09:07:01 A Lenny [facility] Outpatient Attender: RADHA TIJERINA MD FP 07/17/2019 01:41:02 P M EST [facility] Outpatient Attender: RADHA TIJERINA MD FP 07/06/2019 02:23:03 P M EST [facility] Outpatient Attender: RADHA TIJERINA MD FP 06/09/2019 05:53:[address] [facility] Insurance Providers Payer name Policy type / Coverage type Policy ID Covered alliance party ID Covered alliance party's relationship to raman Policy Raman Plan Information [employer] COMMUNITY PLAN MCDO [id number] SP [id number] Self Pay P none S none Managed Care - [facility] Community Plan P [id number] S [id number] Medicaid S [id number] S [id number] Managed Care - [facility] Community Plan P [id number] S [id number] Medicaid S [id number] S [id number] MEDICAID M [id number] S [id number] [facility](MCAID) O [id number] S [id number] [facility] I [id number] Self [id number] UHC I [id number] Self [id number] [facility] I [id number] Self [id number] MEDICAID [id number] SP [id number] [facility] Maintenance Organization (HMO) [id number] Self [id number] [facility] Health Maintenance Organization (HMO) [id number] Self [id number] Managed Care - Community Plan [employer] P [id number] S [id number] [facility] Health Maintenance Organization (HMO) [id number] Self [id number] [facility]OS[facility] [id number] SP [id number] [employer] COMMUNITY PLAN MCDHMO [id number] SP [id number] UN[employer] COMMUNITY PLAN MCDHMO [id number] SP [id number] [facility] COMMUNITY PLAN [id number] Comme rcial Insurance [id number] ID IDENTIFICATION [id number] Other In surance [id number] [facility] -[facility]P P [id number] S [id number] [facility](MCAID) O [id number] S [id number] [employer] COMMUNITY PLAN MCDO [id number] SP [id number] [facility] Community Plan Commercial Self [employer](MCAID) O [id number] S [id number] [facility] Hmo Commercial Self [employer] [place] PPO [id number] MO2 [id number] [place] BCYO P [id number] O [id number] Results ID Date Data Source [id number] 05/16/2020 12:20:00 PM EST [facility] Name Value Range Interpretation Code Description Data Taniya rce(s) Supporting Document(s) SARS coronavirus 2 RNA [facility] This lab was ordered by [facility] and reported by [facility]. ID Date Data Source [id number] 05/09/2020 06:34:00 AM EST [facility] Name Value Range Interpretation Code Description Data Taniya rce(s) Supporting Document(s) SARS coronavirus 2 RNA [facility] This lab was ordered by [facility] and reported by [facility]. ID Date Data Source [id number] 05/19/2019 08:25:00 AM EST [facility] ([facility]) Name Value Range Interpretation Code Description Data Taniya rce(s) Supporting Document(s) Prolactin [Units/volume] in Serum or Plasma by 3rd IS 24.6 ng/mL [facility] ([facility]) Non-: 2.8 - 29.2 ng/mL : 9.7 - 208.5 ng/mL Post Menopausal: 1.8 - 20.3 ng/mL Insulin-like growth factor-I [Mass/volume] in Serum or Plasma 24 3 ng/mL [id number] [facility] ([facility]) <content>AGE FEMALE AGE FEMALE</content>
<content><1 year 18 - 126 11 years 93 - 453</content>
<content>1 year 20 - 132 12 years 105 - 499</content>
<content>2 years 22 - 145 13 years 116 - 533</content>
<content>3 years 26 - 164 14 years 123 - 552</content>
<content>4 years 31 - 188 15 years 127 - 554</content>
<content>5 years 36 - 214 16 years 128 - 542</content>
<content>6 years 42 - 240 17 years 125 - 517</content>
<content>7 years 49 - 267 18 years 121 - 486</content>
<content>8 years 57 - 305 19 years 114 - 451</content>
<content>9 years 67 - 349 20 years 108 - 416</content>
<content>10 years 80 - 400</content>
<content>Performed at: [facility]content>
<content>[address], [place] [id number]</content>
<content>French Polisher: Pauly Felix MD, Phone: [phone]</content>
<content></content> Cortisol [Mass/volume] in Serum or Plasma --AM peak specimen 20.5 ug/dL 4.3-22.4 [facility] ([facility] ) Procedure Vital Signs ID Date Data Source UNK Name Value Range Interpretation Code Description Data Source(s) Oxygen saturation in Arterial blood by Pulse oximetry 99 % 99 % [facility] ([facility] ) Body mass index (BMI) [Ratio] 44.3 kg/m2 44.3 k g/m2 [facility] ([facility] ) Body weight 247.00 [lb_av] 247.00 [lb_av] MEDEN T ([facility] ) Body height 62.6 [in_i] 62.6 [in_i] [facility] ([facility] ) 5'2.60" Heart rate 98 /min 98 /min [facility] ([facility] ) Diastolic blood pressure 70 mm[Hg] 70 mm[Hg] [facility] ([facility] ) Systolic blood pressure 130 mm[Hg] 130 mm[Hg] M [facility] ([facility] )
[2020-07-08] MEDS ORDERED: diphenhydrAMINE 50MG/ML VIAL (J1200) IM ONE (01:30)
[2020-07-08] MEDS ORDERED: LORazepam 2 MG/ML VIAL IM ONE (01:30)
[2020-07-08] MEDS ORDERED: HALOPERIDOL 5MG/ML VIAL (J1630 PER 1) IM ONE (01:30)
[2020-07-08 02:31] LABS: HEMATOCRIT 41.1 % (36.0-47.0); HEMOGLOBIN 13.3 g/dl (12.0-15.5); MEAN CORPUSCULAR HEMOGLOBIN 29.5 pg (27.0-33.0); MEAN CORPUSCULAR HGB CONC 32.4 g/dl (32.0-36.5); MEAN CORPUSCULAR VOLUME 91.1 fl (80.0-96.0); PLATELET COUNT, AUTOMATED 268 10^3/uL (150-450); RED BLOOD COUNT 4.51 10^6/uL (4.00-5.40)
[2020-07-08 03:07] LABS: ACETAMINOPHEN LEVEL < 2.0 UG/ML (10.0-30.0); ALBUMIN 4.2 GM/DL (3.2-5.2); ALT/SGPT 37 U/L (12-78); BILIRUBIN,DIRECT 0.1 MG/DL (0.0-0.2); BILIRUBIN,TOTAL 0.3 MG/DL (0.2-1.0); BLOOD UREA NITROGEN 11 MG/DL (7-18); CALCIUM LEVEL 9.4 MG/DL (8.5-10.1); CARBON DIOXIDE LEVEL 25 MEQ/L (21-32); CHLORIDE LEVEL 105 MEQ/L (98-107); CREATININE FOR GFR 1.01 MG/DL (0.55-1.30); ETHYL ALCOHOL (ETHANOL) < 0.003 % (0.000-0.010); GLOMERULAR FILTRATION RATE > 60.0 (>60); GLUCOSE, FASTING 89 MG/DL (70-100); POTASSIUM SERUM 3.3 MEQ/L (3.5-5.1); SALICYLATE LEVEL 3.4 MG/DL (5.0-30.0); SODIUM LEVEL 141 MEQ/L (136-145); THYROID STIMULATING HORMONE 0.694 uIU/ML (0.358-3.740); TOTAL PROTEIN 8.3 GM/DL (6.4-8.2)
--- OUTSIDE RECORDS SUMMARY | 2020-07-08 03:16 | CCD ---
Author Author [facility] Organization [facility] Address Unknown Phone Unavailable Care Team Providers Care General Scrap Worker Name Role Phone Agusto Ellis MD Unavailable [...] is protected by Article 27-F of the [facility] Public Health law. If you continue you may have access to information: Regarding HIV / AIDS; Provided by facilities licensed or operated by the [facility] Office of Mental Health; or Provided by the [facility] Office for People With Developmental Disabilities. If such information is present, then the following [facility] mandated warning applies: This information has [...] law may result in a fine or alf sentence or both. A general authorization for the release of medical or other information is NOT sufficient authorization for further disc losure. Family History Family Member Name Family Member Gender Family Member Status Date o f Status Description Data Source(s) Unknown Unknown Problem [facility] ([facility]) Unknown Female Problem [facility] ([facility] ) Encounters Encounter Providers Location Date Indications Data Source(s ) Outpatient Attender: Brad Ellis MD 03/14/2020 08:49:02 AM EDT [facility] Outpatient Attender: Brad Ellis MD 03/11/2020 03:15:00 PM EDT [facility] Outpatient Attender: Brad Ellis MD 02/22/2020 12:02:01 AM EDT [facility] Outpatient Attender: Brad Ellis MD 02/05/2020 12:02:00 AM EDT [facility] Outpatient Attender: Brad Ellis MD 02/04/2020 11:19:01 AM EDT [facility] Outpatient Attender: Brad Ellis MD 02/04/2020 11:18:01 AM EDT [facility] Outpatient Attender: RADHA TIJERINA MD 01/01/2020 03:09:00 P M [facility] Outpatient Attender: RADHA TIJERINA MD 12/01/2019 10:37:01 A M [facility] Outpatient Attender: RADHA TIJERINA MD [...] MD FP 08/12/2019 09:07:01 A Lenny SUN [facility] Outpatient Attender: RADHA TIJERINA MD FP 07/17/2019 01:41:02 P M EST [facility] Outpatient Attender: RADHA TIJERINA MD FP 07/06/2019 02:23:03 P M EST [facility] Outpatient Attender: RADHA TIJERINA MD FP 06/09/2019 05:53:59 P [facility] Insurance Providers Payer name Policy type / Coverage type Policy ID Covered alliance party ID Covered alliance party's relationship to raman Policy Raman Plan Information [employer] COMMUNITY PLAN MCDO [id number] SP [id number] Self Pay P none S none Managed Care - [facility] Community Plan P [id number] S [id number] Medicaid S [id number] S [id number] Managed Care - [facility] Community Plan P [id number] S [id number] Medicaid S [id number] S [id number] MEDICAID M [id number] S [id number] [facility]CA[facility]) O [id number] S [id number] [facility] I [id number] Self [id number] UHC I [id number] Self [id number] [facility] I [id number] Self [id number] MEDICAID [id number] SP [id number] [facility] Health Maintenance Organization (HMO) [id number] Self [id number] [facility] Health Maintenance Organization (HMO) [id number] Self [id number] Managed Care - Community Plan [employer] P [id number] S [id number] [facility] Health Maintenance Organization (HMO) [id number] Self [id number] [facility] [id number] SP [id number] [employer] COMMUNITY PLAN MCDHMO [id number] SP [id number] UN[employer] COMMUNITY PLAN MCDHMO [id number] SP [id number] [facility] COMMUNITY PLAN [id number] Comme rcial Insurance [id number] ID IDENTIFICATION [id number] Other In surance [id number] [facility] P [id number] S [id number] [facility](MCAID) O [id number] S [id number] [employer] COMMUNITY PLAN MCDO [id number] SP [id number] [facility] Community Plan Commercial Self [employer](MCAID) O [id number] S [id number] [facility] Hmo Commercial Self [place]BS [place] PPO [id number] [id number] [place] BCYO P [id number] O [id number] Results ID Date Data Source [id number] 05/16/2020 12:20:00 PM EST [facility] Name Value Range Interpretation Code Description Data Taniya rce(s) Supporting Document(s) SARS coronavirus 2 RNA [facility] This lab was ordered by [facility] and reported by [facility]. ID Date Data Source [id number] 05/09/2020 06:34:00 AM EST [facility] Name Value Range Interpretation Code Description Data Taniya rce(s) Supporting Document(s) SARS coronavirus 2 RNA [facility] This lab was ordered by [facility] and reported by [facility]. ID Date Data Source [id number] 05/19/2019 08:25:00 AM EST [facility] ([facility]) Name Value Range Interpretation Code Description Data Taniya rce(s) Supporting Document(s) Prolactin [Units/volume] in Serum or Plasma by 3rd IS 24.6 ng/mL [facility] ([facility]) Non-: 2.8 - 29.2 ng/mL : 9.7 - 208.5 ng/mL Post Menopausal: 1.8 - 20.3 ng/mL Insulin-like growth factor-I [Mass/volume] in Serum or Plasma 24 3 ng/mL 108-416 [facility] ([facility]) <content>AGE FEMALE AGE FEMALE</content>
[...]
<content>10 years 80 - 400</content>
<content>Performed at: [facility]</content>
<content>[address], [place] [id number]</content>
<content>[employer]: Pauly Felix MD, Phone: [phone]</content>
<content></content> Cortisol [Mass/volume] in Serum or Plasma --AM peak specimen 20.5 ug/dL 4.3-22.4 [facility] ([facility] ) Procedure Vital Signs ID Date Data Source UNK Name Value Range Interpretation Code Description Data Source(s) Oxygen saturation in Arterial blood by Pulse oximetry 99 % 99 % [facility] ([facility] ) Body mass index (BMI) [Ratio] 44.3 kg/m2 44.3 k g/m2 [facility] ([facility] ) Body weight 247.00 [lb_av] 247.00 [lb_av] [facility] T ([facility] ) Body height 62.6 [in_i] 62.6 [in_i] [facility] ([facility] ) 5'2.60" Heart rate 98 /min 98 /min [facility] ([facility] ) Diastolic blood pressure 70 mm[Hg] 70 mm[Hg] [facility] ([facility] ) Systolic blood pressure 130 mm[Hg] 130 mm[Hg] M EDENT ([facility] )
[2020-07-08 04:38] LABS: HCG, SERUM QUALITATIVE NEGATIVE (NEGATIVE)
[2020-07-08] MEDS: NICOTINE 21MG/24HR 1 EA TRANSDERMAL TD SCH (09:00)
[2020-07-08] MEDS ORDERED: IBUPROFEN 800 MG TAB PO ONE (12:30)
[2020-07-08 12:57] LABS: AMPHETAMINES LEVEL URINE NEGATIVE (NEGATIVE); BARBITURATES URINE NEGATIVE (NEGATIVE); BENZODIAZEPINES URINE NEGATIVE (NEGATIVE); CANNABINOIDS URINE POSITIVE (NEGATIVE); COCAINE METABOLITE URINE NEGATIVE (NEGATIVE); METHADONE URINE NEGATIVE (NEGATIVE); OPIATES URINE NEGATIVE (NEGATIVE); PHENCYCLIDINE URINE NEGATIVE (NEGATIVE)
[2020-07-08 14:54] LABS: RSV AMPLIFICATION NEGATIVE (NEGATIVE)
[2020-07-08] MEDS ORDERED: MAALOX 30 ML SUSP *UDC PO PRN ×2 (15:30→19:00)
[2020-07-08] MEDS ORDERED: IBUPROFEN 400MG TAB PO PRN (15:30)
[2020-07-08] MEDS ORDERED: traZODone 50 MG TAB PO PRN (15:30)
[2020-07-08] MEDS ORDERED: LORazepam 1 MG TAB PO PRN (15:30)
[2020-07-08] MEDS ORDERED: MOM 30ML SUSPENSION UDC PO PRN (15:30)
[2020-07-08] MEDS ORDERED: OLANZapine ORAL DISINTEGRATING TAB 5MG PO PRN (15:30)
[2020-07-08] MEDS: IBUPROFEN 400MG TAB PO PRN (19:09)
[2020-07-08] MEDS: LORazepam 1 MG TAB PO PRN (19:09)
[2020-07-08] MEDS ORDERED: diphenhydrAMINE 50MG/ML VIAL (J1200) IM STA (19:43)
[2020-07-08] MEDS ORDERED: HALOPERIDOL 5MG/ML VIAL (J1630 PER 1) IM STA (19:43)
[2020-07-08] MEDS ORDERED: LORazepam 2 MG/ML VIAL IM STA (19:43)
[2020-07-08] MEDS: OLANZapine ORAL DISINTEGRATING TAB 5MG PO SCH (20:48)
[2020-07-09] MEDS: OLANZapine ORAL DISINTEGRATING TAB 5MG PO SCH ×2 (09:12→19:58)
[2020-07-09] MEDS: NICOTINE 21MG/24HR 1 EA TRANSDERMAL TD SCH (09:13)
--- NOTE | 2020-07-09 12:51 | MHHPE ---
[facility] HISTORY AND PHYSICAL DATE OF ADMISSION: 07/08/2020 DATE OF EVALUATION: 07/09/2020 HISTORY OF PRESENT ILLNESS: This patient was brought to the Emergency Room and admitted due to what appears to be psychotic and manic-like state. According to the grandmother, the patient had been running around naked. She is very jew and very hypersexual and speech is pressured. There was no way to get much information from her. Apparently the patient had not been eating or sleeping and she has stopped taking her medications. Today the patient was sleeping when I went to see her and she was a bit groggy. She had been given some medication yesterday, some Haldol 10 mg, Ativan 2 mg and Benadryl 50 mg. The patient was given the medication IM. It was a chemical restraint because the patient was very agitated at the time, taking her clothing off and there was no way that the staff was able to calm her down. This morning the patient is a bit groggy but she did partially lay on her side and I was able to talk to her. She has no insight about what happens and basically she is telling me that "I am not supposed to be here. It is only my period that I'm having". And she went on and on about her grandmother being 80 years old and how she needs to get home to take care of her and other than that, I was not able to get much more information from her. So basically most of my evaluation is going to be based on prior records. PAST PSYCHIATRIC HISTORY: The patient had a prior psychiatric admission at [facility] from 03/11/2018 until 03/18/2018. She was discharged on Invega 3 mg twice daily and it seemed like she had a similar presentation at that time. She was diagnosed with schizoaffective disorder, bipolar type, and mild intellectual disability and cannabis use disorder. Of note, there did not seem to be a lot of past history on the patient because she was pretty psychotic at the time too, according to those notes. But it does seem that she has had multiple other psychiatric admissions and that she had stopped taking her medications at that time. I did not see any indication as to whether this patient has ever made any suicidal attempts in the past or not. FAMILY HISTORY: The patient apparently was adopted when she was [age] year old. PAST MEDICAL HISTORY: At this point no medical problems have been noted in her chart. She denied any medical problems ABUSE HISTORY: This is unknown. SUBSTANCE ABUSE: The patient has a positive toxicology screen for cannabis. MENTAL STATUS EXAMINATION: This patient is alert and oriented times three. Eye contact was fair. As I said, I had just awakened her. She was still a bit groggy, and she kind of half sat up on her bed and she did talk to me briefly, but basically she was just repeating the same thing; that she had no reason to be in the hospital, that she needed to go home and take care of her grandmother. The patient had some mild pressured speech. She kept telling me that she was doing good but affect was labile. She definitely is quite delusional and has been exhibiting hypersexual delusions and delusions about being . She denied hearing voices, but I do not know how reliable she is. Concentration is poor. Memory appears to be grossly intact. She did deny suicidal and homicidal thoughts. Insight and judgment were poor. DIAGNOSIS: 1. Schizoaffective disorder, bipolar type. 2. Mild intellectual disability. 3. Cannabis use disorder. REVIEW OF SYSTEMS: The patient's review of systems was unable to be completed because the patient was not cooperative and was still somewhat groggy, but also had been refusing her vitals this morning. TREATMENT PLAN: At this point I am going to treat this patient with Zyprexa 5 mg q. a.m., 10 mg q. h.s. and I may consider restarting her on the Invega that she took 3 mg twice daily before when she was last in the hospital and apparently she stabilized and was discharged on that.
[2020-07-09 16:35] VITALS: BP 137/80
[2020-07-09] MEDS: traZODone 50 MG TAB PO PRN (20:52)
[2020-07-10 06:23] VITALS: BP 146/95
[2020-07-10] MEDS: IBUPROFEN 400MG TAB PO PRN ×2 (08:03→20:38)
[2020-07-10] MEDS: OLANZapine ORAL DISINTEGRATING TAB 5MG PO SCH ×2 (08:03→20:38)
[2020-07-10] MEDS: NICOTINE 21MG/24HR 1 EA TRANSDERMAL TD SCH (09:00)
[2020-07-10] MEDS ORDERED: CETIRIZINE (ZyrTEC) 10 MG TAB PO ONE (12:30)
[2020-07-10] MEDS ORDERED: CEPACOL LOZENGE PO ONE (12:30)
[2020-07-10 16:14] VITALS: BP 125/78
[2020-07-11] MEDS: IBUPROFEN 400MG TAB PO PRN ×4 (03:01→20:23)
[2020-07-11 06:41] VITALS: BP 133/84
[2020-07-11] MEDS: CETIRIZINE (ZyrTEC) 10 MG TAB PO SCH (08:26)
[2020-07-11] MEDS: OLANZapine ORAL DISINTEGRATING TAB 5MG PO SCH ×2 (08:27→20:24)
[2020-07-11] MEDS: CEPACOL LOZENGE PO PRN (08:28)
[2020-07-11] MEDS: NICOTINE 21MG/24HR 1 EA TRANSDERMAL TD SCH (08:45)
--- NOTE | 2020-07-11 13:08 | MHIPN ---
[facility] INPATIENT PROGRESS NOTE DATE: 07/10/20 HISTORY OF PRESENT ILLNESS: The patient today states "I'm doing good except I'm having nicotine withdrawal. I'm trying to get rest and I want doctors to know that I'm fine." She says she needs to get discharged right away. She is delusional stating "I'm dealing with IRS identify fraud right now." Speech is very pressured and her insight is very poor. MENTAL STATUS EXAM: The patient is alert. She is oriented times 3. Speech is pressured. She has flight of ideas. She has delusions as noted above. She says that her mood is good, but affect is labile. She is definitely manic. She is denying suicidal or homicidal ideations. Concentration is poor. Insight and judgment poor. DIAGNOSES: 1. Schizoaffective disorder bipolar type. 2. Mild intellectual disability. 3. Cannabis use disorder. TREATMENT PLAN: At this point we will continue to monitor the patient for manic and delusional symptoms. We are currently treating her with Zyprexa and we will adjust this as indicated and she has been taking the medication so far. We will titrate the medications as indicated.
--- NOTE | 2020-07-11 16:06 | MHIPNPDOC ---
[facility] Progress Note Progress Note DATE OF SERVICE: 07/11/20 HISTORY: This patient was brought to the Emergency Room and admitted due to what appears to be psychotic and manic-like state. According to the grandmother, the patient had been running around naked. She is very holiness and very hypersexual and speech is pressured. There was no way to get much information from her. Apparently the patient had not been eating or sleeping and she has stopped taking her medications. VITAL SIGNS: See below. CURRENT MEDICATIONS: See below. MENTAL STATUS EXAMINATION: Patient is a 20-year old female, who is was brought to [facility] for psychotic symptoms. Speech: Is loud, pressure speech, fast rate, tone and volume Language skills are intact Thought processes including: flight of ideas, ruminative, disorganized and scattered Thought content: reports depression and anxiety. Denies suicidal/homicidal ideation, planning or intent. Abstract reasoning, and computation: fair Description of associations: denies, none observed Description of abnormal or psychotic thoughts: denies, none observed. Judgment: fair to poor at times Insight: fair to poor at times Orientation: alert and oriented to person, place, time and situation Recent and remote memory: intact Attention span and concentration: good Language: expansive Fund of knowledge: average Mood: Euthymic Mood Affect: reactive DIAGNOSES: Schizoaffective disorder, bipolar type. 2. Mild intellectual disability. 3. Cannabis use disorder ASSESSMENT: Patient was quite labile in the interview today. She was tearful, tangential and circumstantial. She had tangential speech, she states that her parents will not allow her to take any medications and will demand her to stop taking them. She talked about her boyfriend Nnamdi Espinoza and a Speech Correction Assistant with whom she is in love with. Patient demonstrated throughout her individual session that she has poor insight and judgment wants to move to [place] to be with her 2 boyfriends, continued delusional thinking. MANAGEMENT PLAN: patient agreeable to Depakote. Continue all other medications as prescribed, discharge when she is stable TIME SPENT: 25 minutes. Vital Signs Vital Signs Date Time Temp Pulse Resp B/P (MAP) Pulse Ox O2 Delivery O2 Flow Rate FiO2 07/11/20 06:41 97.5 106 20 133/84 (100) 100 Room Air Current Medications Current Medications Medications (Trade) Dose Ordered Sig/Sanam Route PRN Reason Start Time Stop Time Status Last Admin Dose Admin Al Hydrox/Mg Hydrox/Simethicone (Mylanta) 30 ml Q4HP PRN PO HEARTBURN/INDIGESTION 07/08/20 15:30 07/08/20 18:08 DC Al Hydrox/Mg Hydrox/Simethicone (Mylanta) 30 ml Q4HP PRN PO HEARTBURN/INDIGESTION 07/08/20 19:00 Cetirizine HCl (ZyrTEC) 10 mg DAILY PO 07/11/20 09:00 07/11/20 08:26 Cetylpyridinium Chloride (Cepacol) 2 rishabh Q2HP PRN PO SORE THROAT 07/10/20 12:30 07/11/20 08:28 Diphenhydramine HCl (Benadryl) 50 mg STAT STAT IM 07/08/20 19:43 07/08/20 19:50 DC 07/08/20 20:03 Divalproex Sodium (Depakote) 250 mg BID PO 07/13/20 09:00 Haloperidol (Haldol) 10 mg STAT STAT IM 07/08/20 19:43 07/08/20 19:50 DC 07/08/20 20:03 Ibuprofen (Advil) 400 mg Q6HP PRN PO PAIN 07/08/20 15:30 07/08/20 18:08 DC Ibuprofen (Advil) 400 mg Q6HP PRN PO PAIN 07/08/20 19:00 07/11/20 10:51 Lorazepam (Ativan) 1 mg Q4HP PRN PO ANXIETY/AGITATION 07/08/20 15:30 07/08/20 18:08 DC Lorazepam (Ativan) 1 mg Q4HP PRN PO ANXIETY/AGITATION 07/08/20 19:00 07/08/20 19:09 Lorazepam (Ativan) 2 mg STAT STAT IM 07/08/20 19:43 07/08/20 19:50 DC 07/08/20 20:03 Magnesium Hydroxide (Milk Of Magnesia) 30 ml DAILYPRN PRN PO CONSTIPATION 07/08/20 15:30 07/08/20 18:08 DC Magnesium Hydroxide (Milk Of Magnesia) 30 ml DAILYPRN PRN PO CONSTIPATION 07/08/20 19:00 Nicotine (Nicoderm Cq 21mg) 1 patch DAILY TD 07/08/20 09:00 07/09/20 09:13 Olanzapine (ZyPREXA ZYDIS) 5 mg DAILY PO 07/09/20 09:00 07/11/20 08:27 Olanzapine (ZyPREXA ZYDIS) 5 mg Q4HP PRN PO AGITATION 07/08/20 19:00 Olanzapine (ZyPREXA ZYDIS) 10 mg Q4HP PRN PO AGITATION 07/08/20 15:30 07/08/20 18:08 DC Olanzapine (ZyPREXA ZYDIS) 10 mg QHS PO 07/08/20 21:00 07/10/20 20:38 Trazodone HCl (Desyrel) 50 mg QHSP PRN PO INSOMNIA 07/08/20 15:30 07/08/20 18:08 DC Trazodone HCl (Desyrel) 50 mg QHSP PRN PO INSOMNIA 07/08/20 19:00 07/09/20 20:52 Allergies Coded Allergies: No Known Allergies (Unverified , 09/07/14) CHRISTO GARCIA DISTRIBUTION OPERATIONS MANAGER Jul 11, 2020 16:06
[2020-07-11 17:52] VITALS: BP 140/81
[2020-07-11] MEDS: traZODone 50 MG TAB PO PRN (20:23)
[2020-07-11] MEDS ORDERED: DIVALPROEX 125 MG TAB PO ONE (21:00)
[2020-07-12 07:06] VITALS: BP 133/77
[2020-07-12] MEDS: CETIRIZINE (ZyrTEC) 10 MG TAB PO SCH (08:23)
[2020-07-12] MEDS: OLANZapine ORAL DISINTEGRATING TAB 5MG PO SCH ×2 (08:23→20:11)
[2020-07-12] MEDS: NICOTINE 21MG/24HR 1 EA TRANSDERMAL TD SCH (08:24)
[2020-07-12 18:01] VITALS: BP 114/66
[2020-07-12] MEDS: traZODone 50 MG TAB PO PRN (20:11)
[2020-07-12] MEDS: DOXYCYCLINE HYCLATE 100MG TABLET PO SCH (20:15)
--- NOTE | 2020-07-12 20:38 | MHIPNPDOC ---
[facility] Progress Note Progress Note DATE OF SERVICE: 07/12/20 HISTORY: This patient was brought to the Emergency Room and admitted due to what appears to be psychotic and manic-like state. According to the grandmother, the patient had been running around naked. She is very restorationism and very hypersexual and speech is pressured. There was no way to get much information from her. Apparently the patient had not been eating or sleeping and she has stopped taking her medications. Interval History: The patient says she doesn't want to remember why she was brought to the Hospital because she doesn't want to think about it but she knows she was using marijuana with other people before she came. She says that now she understands what is important in life, giving a hug to mom, to her GM, take her medications. The patient presents with expansive talk, manic, with hyper restorationism thoughts VITAL SIGNS: See below. CURRENT MEDICATIONS: See below. MENTAL STATUS EXAMINATION: Patient is a 20-year old female, who was brought to [facility] for psychotic symptoms. Speech: Is loud, pressure speech, fast rate, tone and volume Language skills are intact Thought processes including: disorganized, circumstantial, derailed Thought content: reports depression and anxiety. Denies suicidal/homicidal ideation, planning or intent. Abstract reasoning, and computation: fair Description of associations: denies, none observed Description of abnormal or psychotic thoughts: denies, none observed. Judgment: fair to poor at times Insight: fair to poor at times Orientation: alert and oriented to person, place, time and situation Recent and remote memory: intact Attention span and concentration: good Language: expansive Fund of knowledge: average Mood: Anxious Mood Affect: reactive, full, congruent with mood DIAGNOSES: 1. Schizoaffective disorder, bipolar type. 2. Mild intellectual disability. 3. Cannabis use disorder ASSESSMENT: The patient is manic, extremely talkative, circumstantial and disorganized. She constantly says she doesn't mind leaving the Hospital until she improves but then she says she has to be out of the Hospital on Saturday because she wants to say goodbye to her parents who are going to be leaving the area. She says that they are very angry with her but she loves them. She says she understands now that she has been hanging around with the wrong people and using marijuana and this has been detrimental for her. She talks about being One with the Universe and about several spiritual/restorationism ideas that are delusional. She is not stable, she is compliant with medications and she says she will continue to be compliant. I will increase her Depakote dose tomorrow. MANAGEMENT PLAN: Continue all other medications as prescribed, discharge when phyllis shepherd is stable TIME SPENT: 25 minutes. Vital Signs Vital Signs Date Time Temp Pulse Resp B/P (MAP) Pulse Ox O2 Delivery O2 Flow Rate FiO2 07/12/20 07:06 97.6 110 18 133/77 (95) 99 Room Air Current Medications Current Medications Medications (Trade) Dose Ordered Sig/Sanam Route PRN Reason Start Time Stop Time Status Last Admin Dose Admin Al Hydrox/Mg Hydrox/Simethicone (Mylanta) 30 ml Q4HP PRN PO HEARTBURN/INDIGESTION 07/08/20 15:30 07/08/20 18:08 DC Al Hydrox/Mg Hydrox/Simethicone (Mylanta) 30 ml Q4HP PRN PO HEARTBURN/INDIGESTION 07/08/20 19:00 Cetirizine HCl (ZyrTEC) 10 mg DAILY PO 07/11/20 09:00 07/12/20 08:23 Cetylpyridinium Chloride (Cepacol) 2 rishabh Q2HP PRN PO SORE THROAT 07/10/20 12:30 07/11/20 08:28 Diphenhydramine HCl (Benadryl) 50 mg STAT STAT IM 07/08/20 19:43 07/08/20 19:50 DC 07/08/20 20:03 Divalproex Sodium (Depakote) 250 mg BID PO 07/13/20 09:00 Haloperidol (Haldol) 10 mg STAT STAT IM 07/08/20 19:43 07/08/20 19:50 DC 07/08/20 20:03 Ibuprofen (Advil) 400 mg Q6HP PRN PO PAIN 07/08/20 15:30 07/08/20 18:08 DC Ibuprofen (Advil) 400 mg Q6HP PRN PO PAIN 07/08/20 19:00 07/11/20 20:23 Lorazepam (Ativan) 1 mg Q4HP PRN PO ANXIETY/AGITATION 07/08/20 15:30 07/08/20 18:08 DC Lorazepam (Ativan) 1 mg Q4HP PRN PO ANXIETY/AGITATION 07/08/20 19:00 07/08/20 19:09 Lorazepam (Ativan) 2 mg STAT STAT IM 07/08/20 19:43 07/08/20 19:50 DC 07/08/20 20:03 Magnesium Hydroxide (Milk Of Magnesia) 30 ml DAILYPRN PRN PO CONSTIPATION 07/08/20 15:30 07/08/20 18:08 DC Magnesium Hydroxide (Milk Of Magnesia) 30 ml DAILYPRN PRN PO CONSTIPATION 07/08/20 19:00 Nicotine (Nicoderm Cq 21mg) 1 patch DAILY TD 07/08/20 09:00 07/09/20 09:13 Olanzapine (ZyPREXA ZYDIS) 5 mg DAILY PO 07/09/20 09:00 07/12/20 08:23 Olanzapine (ZyPREXA ZYDIS) 5 mg Q4HP PRN PO AGITATION 07/08/20 19:00 Olanzapine (ZyPREXA ZYDIS) 10 mg Q4HP PRN PO AGITATION 07/08/20 15:30 07/08/20 18:08 DC Olanzapine (ZyPREXA ZYDIS) 10 mg QHS PO 07/08/20 21:00 07/11/20 20:24 Trazodone HCl (Desyrel) 50 mg QHSP PRN PO INSOMNIA 07/08/20 15:30 07/08/20 18:08 DC Trazodone HCl (Desyrel) 50 mg QHSP PRN PO INSOMNIA 07/08/20 19:00 07/11/20 20:23 Allergies Coded Allergies: No Known Allergies (Unverified , 09/07/14) TIFFANIE BARNES MD Jul 12, 2020 15:45
[2020-07-12] MEDS ORDERED: DIVALPROEX 250 MG TAB PO ONE (21:00)
[2020-07-12] MEDS: DIMETHICONE 2% OINTMENT(VANICREAM) 70GM TUBE TOP SCH (21:27)
[2020-07-12] MEDS: LORazepam 1 MG TAB PO PRN (21:28)
--- NOTE | 2020-07-12 21:36 | IPNPDOC ---
Subjective Date Seen The patient was seen on 07/12/20. Subjective Chief Complaint/HPI I was contacted by nurse to see patient this evening about "sores" located under breast and thighs. I saw patient with nurse and resident, Dr. Balderas. Patient tells me that she has a history of staph infection with these sores and that her mom had sent her to [facility] for treatment. She was recently on antibiotics, but these sore have not completely went away. When I examined the area with the nurse and resident, it looks like 5 spots of folliculitis under breast. There was also 1 on her right thigh. There is no signs of intertrigo or cellulitis. I spoke to her about doxycycline, and she was agreeable to this. Otherwise, she reports dry itchy skin on her back and legs bilaterally which started after taking showers frequently. Recommended vanicream. She dose have a mole on left lateral side, and she is concerned about cancer. I recommended on discharge, she should follow up with dermatology Objective Physical Examination General Exam: Positive: Alert, Cooperative Eye Exam: Negative: Sclera icteric Extremity Exam: Negative: Edema Skin Exam: Positive: Rash (dry skin back and legs), Lesion (Folliculitis under breast and right thigh. Mole on left lateral chest) Neuro Exam: Positive: Normal Gait Psych Exam: Positive: Anxiety Assessment /Plan Plan/VTE VTE Prophylaxis Ordered?: Yes (ambulation) Plan 1. Folliculitis -Start patient on a seven day course of doxycycline. This would also cover for staph 2. Dry skin -Discussed skin care. Recommended Vanicream 3. Mole -Patient is concerned for cancer -Recommended that she follows up with dermatology on discharge Thank you for consulting us, we will sign off at this time. Please do not hesitate to contact us for any other questions or concerns VS, I&O, 24H, Fishbone Vital Signs/I&O Vital Signs Date Time Temp Pulse Resp B/P (MAP) Pulse Ox O2 Delivery O2 Flow Rate FiO2 07/12/20 18:01 97.4 73 18 114/66 (82) 100 07/12/20 07:06 Room Air FRANK TABOR DO Jul 12, 2020 21:36
[2020-07-13] MEDS: CEPACOL LOZENGE PO PRN ×2 (05:52→16:11)
[2020-07-13 06:47] VITALS: BP 134/78
[2020-07-13] MEDS: DOXYCYCLINE HYCLATE 100MG TABLET PO SCH ×2 (08:04→20:13)
[2020-07-13] MEDS: CETIRIZINE (ZyrTEC) 10 MG TAB PO SCH (08:04)
[2020-07-13] MEDS: DIMETHICONE 2% OINTMENT(VANICREAM) 70GM TUBE TOP SCH ×2 (08:05→20:16)
[2020-07-13] MEDS: NICOTINE 21MG/24HR 1 EA TRANSDERMAL TD SCH (08:05)
[2020-07-13] MEDS: OLANZapine ORAL DISINTEGRATING TAB 5MG PO SCH ×2 (08:05→20:15)
[2020-07-13] MEDS ORDERED: DIVALPROEX 250 MG TAB PO SCH (09:00)
[2020-07-13] MEDS: OLANZapine ORAL DISINTEGRATING TAB 5MG PO PRN (14:54)
--- NOTE | 2020-07-13 16:24 | MHIPNPDOC ---
[facility] Progress Note Progress Note DATE OF SERVICE: 07/13/20 HISTORY: This patient was brought to the Emergency Room and admitted due to what appears to be psychotic and manic-like state. According to the grandmother, the patient had been running around naked. She is very anabaptism and very hypersexual and speech is pressured. There was no way to get much information from her. Apparently the patient had not been eating or sleeping and she has stopped taking her medications. Interval History: she says she was depressed last night because she was feeling lonely but one of the staff members spoke with her and she felt better. she is still requesting to get discharged soon because her mom and dad will go back to [place] and they won't be able to see her. She has compromised to keep taking her medications, has made plans for the future of how to handle her medications onc she goes to her 's house. She is derailed, not rational at all, very talkative, with rapid speech, circumstantial and tangential. VITAL SIGNS: See below. CURRENT MEDICATIONS: See below. MENTAL STATUS EXAMINATION: Patient is a 20-year old female, who was brought to [facility] for psychotic symptoms. Speech: Is loud, pressure speech, fast rate, tone and volume Language skills are intact Thought processes including: disorganized, circumstantial, derailed Thought content: continues to report depression and anxiety. Denies suicidal/homicidal ideation, planning or intent. Description of associations: denies, none observed Description of abnormal or psychotic thoughts: denies, none observed. Judgment: poor Insight: limited Orientation: alert and oriented to person, place, time and situation Recent and remote memory: intact Attention span and concentration: good Language: expansive Fund of knowledge: average Mood: Anxious/irritable Mood Affect: reactive, full, congruent with mood DIAGNOSES: 1. Schizoaffective disorder, bipolar type. 2. Mild intellectual disability. 3. Cannabis use disorder ASSESSMENT: I have adjusted the Depakote order to 500 mgs PO BID and Zyprexa 10 mgs PO BID. Hoping this medication increase will help her improve soon. will order Depakote levels for Saturday07/15/2020 MANAGEMENT PLAN: Increase Depakote to 500 mgs PO BID and Zyprexa to 10 mgs PO BID TIME SPENT: 15 minutes. Vital Signs Vital Signs Date Time Temp Pulse Resp B/P (MAP) Pulse Ox O2 Delivery O2 Flow Rate FiO2 07/13/20 06:47 97.5 97 18 134/78 (96) 97 Room Air Current Medications Current Medications Medications (Trade) Dose Ordered Sig/Sanam Route PRN Reason Start Time Stop Time Status Last Admin Dose Admin Al Hydrox/Mg Hydrox/Simethicone (Mylanta) 30 ml Q4HP PRN PO HEARTBURN/INDIGESTION 07/08/20 15:30 07/08/20 18:08 DC Al Hydrox/Mg Hydrox/Simethicone (Mylanta) 30 ml Q4HP PRN PO HEARTBURN/INDIGESTION 07/08/20 19:00 Cetirizine HCl (ZyrTEC) 10 mg DAILY PO 07/11/20 09:00 07/13/20 08:04 Cetylpyridinium Chloride (Cepacol) 2 rishabh Q2HP PRN PO SORE THROAT 07/10/20 12:30 07/13/20 05:52 Dimethicone (Vanicream Ointment) 1 dose BID TOP 07/12/20 21:00 07/13/20 08:05 Diphenhydramine HCl (Benadryl) 50 mg STAT STAT IM 07/08/20 19:43 07/08/20 19:50 DC 07/08/20 20:03 Divalproex Sodium (Depakote) 250 mg BID PO 07/13/20 09:00 07/13/20 08:05 Doxycycline Hyclate (Vibramycin) 100 mg BID PO 07/12/20 21:00 07/19/20 20:59 07/13/20 08:04 Haloperidol (Haldol) 10 mg STAT STAT IM 07/08/20 19:43 07/08/20 19:50 DC 07/08/20 20:03 Ibuprofen (Advil) 400 mg Q6HP PRN PO PAIN 07/08/20 15:30 07/08/20 18:08 DC Ibuprofen (Advil) 400 mg Q6HP PRN PO PAIN 07/08/20 19:00 07/11/20 20:23 Lorazepam (Ativan) 1 mg Q4HP PRN PO ANXIETY/AGITATION 07/08/20 15:30 07/08/20 18:08 DC Lorazepam (Ativan) 1 mg Q4HP PRN PO ANXIETY/AGITATION 07/08/20 19:00 07/12/20 21:28 Lorazepam (Ativan) 2 mg STAT STAT IM 07/08/20 19:43 07/08/20 19:50 DC 07/08/20 20:03 Magnesium Hydroxide (Milk Of Magnesia) 30 ml DAILYPRN PRN PO CONSTIPATION 07/08/20 15:30 07/08/20 18:08 DC Magnesium Hydroxide (Milk Of Magnesia) 30 ml DAILYPRN PRN PO CONSTIPATION 07/08/20 19:00 Nicotine (Nicoderm Cq 21mg) 1 patch DAILY TD 07/08/20 09:00 07/09/20 09:13 Olanzapine (ZyPREXA ZYDIS) 5 mg DAILY PO 07/09/20 09:00 07/13/20 08:05 Olanzapine (ZyPREXA ZYDIS) 5 mg Q4HP PRN PO AGITATION 07/08/20 19:00 07/13/20 14:54 Olanzapine (ZyPREXA ZYDIS) 10 mg Q4HP PRN PO AGITATION 07/08/20 15:30 07/08/20 18:08 DC Olanzapine (ZyPREXA ZYDIS) 10 mg QHS PO 07/08/20 21:00 07/12/20 20:11 Trazodone HCl (Desyrel) 50 mg QHSP PRN PO INSOMNIA 07/08/20 15:30 07/08/20 18:08 DC Trazodone HCl (Desyrel) 50 mg QHSP PRN PO INSOMNIA 07/08/20 19:00 07/12/20 20:11 Allergies Coded Allergies: No Known Allergies (Unverified , 09/07/14) TIFFANIE BARNES MD Jul 13, 2020 16:24
[2020-07-13 18:22] VITALS: BP 135/66
[2020-07-13] MEDS: DIVALPROEX 250 MG TAB PO SCH (20:13)
[2020-07-14] MEDS: DIMETHICONE 2% OINTMENT(VANICREAM) 70GM TUBE TOP SCH ×2 (08:12→20:14)
[2020-07-14] MEDS: DIVALPROEX 250 MG TAB PO SCH ×2 (08:12→20:10)
[2020-07-14] MEDS: NICOTINE 21MG/24HR 1 EA TRANSDERMAL TD SCH ×2 (08:12→09:07)
[2020-07-14] MEDS: DOXYCYCLINE HYCLATE 100MG TABLET PO SCH ×2 (08:12→20:10)
[2020-07-14] MEDS: CETIRIZINE (ZyrTEC) 10 MG TAB PO SCH (08:12)
[2020-07-14] MEDS ORDERED: OLANZapine ORAL DISINTEGRATING TAB 5MG PO SCH ×2 (09:00→21:00)
[2020-07-14] MEDS: IBUPROFEN 400MG TAB PO PRN (09:09)
[2020-07-14 16:34] VITALS: BP 134/80
[2020-07-14] MEDS: ARIPiprazole 15 MG TAB (AbiLIFY) PO SCH (20:10)
--- NOTE | 2020-07-14 20:10 | MHIPNPDOC ---
[facility] Progress Note Progress Note DATE OF SERVICE: 07/14/20 HISTORY: This patient was brought to the Emergency Room and admitted due to what appears to be psychotic and manic-like state. According to the grandmother, the patient had been running around naked. She is very druze and very hypersexual and speech is pressured. There was no way to get much information from her. Apparently the patient had not been eating or sleeping and she has stopped taking her medications. Interval History: She is still tangential, circumstantial, derailed. VITAL SIGNS: See below. CURRENT MEDICATIONS: See below. MENTAL STATUS EXAMINATION: Patient is a 20-year old female, who was brought to [facility] for psychotic symptoms. Speech: Is loud, pressure speech, fast rate, tone and volume Language skills are intact Thought processes including: disorganized, circumstantial, derailed, manic Thought content: She denies SI/HI, she is still a little bit paranoid about some of her former friends. Description of associations: denies, none observed Description of abnormal or psychotic thoughts: denies, none observed. Judgment: poor Insight: limited Orientation: alert and oriented to person, place, time and situation Recent and remote memory: intact Attention span and concentration: good Language: expansive Fund of knowledge: average Mood: Anxious/irritable Mood Affect: reactive, full, congruent with mood DIAGNOSES: 1. Schizoaffective disorder, bipolar type. 2. Mild intellectual disability. 3. Cannabis use disorder ASSESSMENT: She tells me she is eating "a lot", says she ate 4 sandwiches today. I will discontinue Zyprexa and will start her on Abilify 7.5 mgs PO BID since Zyprexa tends to increase appetite and is a weight govind. Abilify poses that risk too but to a lesser extent. She will benefit from Depakote 500 mgs PO BID. Tomorrow she will have her blood drawn early in the morning ( lipid profile, liver profile and Depakote levels) MANAGEMENT PLAN: Continue Depakote to 500 mgs PO BID -discontinue Zyprexa 10 mgs PO BID -Start Abilify 7.5 mgs PO BID TIME SPENT: 30 minutes. Vital Signs Vital Signs Date Time Temp Pulse Resp B/P (MAP) Pulse Ox O2 Delivery O2 Flow Rate FiO2 07/14/20 06:10 98.7 89 18 100 Room Air 07/13/20 18:22 135/66 (89) Current Medications Current Medications Medications (Trade) Dose Ordered Sig/Sanam Route PRN Reason Start Time Stop Time Status Last Admin Dose Admin Al Hydrox/Mg Hydrox/Simethicone (Mylanta) 30 ml Q4HP PRN PO HEARTBURN/INDIGESTION 07/08/20 15:30 07/08/20 18:08 DC Al Hydrox/Mg Hydrox/Simethicone (Mylanta) 30 ml Q4HP PRN PO HEARTBURN/INDIGESTION 07/08/20 19:00 Cetirizine HCl (ZyrTEC) 10 mg DAILY PO 07/11/20 09:00 07/14/20 08:12 Cetylpyridinium Chloride (Cepacol) 2 rishabh Q2HP PRN PO SORE THROAT 07/10/20 12:30 07/13/20 16:11 Dimethicone (Vanicream Ointment) 1 dose BID TOP 07/12/20 21:00 07/13/20 08:05 Diphenhydramine HCl (Benadryl) 50 mg STAT STAT IM 07/08/20 19:43 07/08/20 19:50 DC 07/08/20 20:03 Divalproex Sodium (Depakote) 250 mg BID PO 07/13/20 09:00 07/13/20 15:48 DC 07/13/20 08:05 Divalproex Sodium (Depakote) 500 mg BID PO 07/13/20 21:00 07/14/20 08:12 Doxycycline Hyclate (Vibramycin) 100 mg BID PO 07/12/20 21:00 07/19/20 20:59 07/14/20 08:12 Haloperidol (Haldol) 10 mg STAT STAT IM 07/08/20 19:43 07/08/20 19:50 DC 07/08/20 20:03 Ibuprofen (Advil) 400 mg Q6HP PRN PO PAIN 07/08/20 15:30 07/08/20 18:08 DC Ibuprofen (Advil) 400 mg Q6HP PRN PO PAIN 07/08/20 19:00 07/14/20 09:09 Lorazepam (Ativan) 1 mg Q4HP PRN PO ANXIETY/AGITATION 07/08/20 15:30 07/08/20 18:08 DC Lorazepam (Ativan) 1 mg Q4HP PRN PO ANXIETY/AGITATION 07/08/20 19:00 07/12/20 21:28 Lorazepam (Ativan) 2 mg STAT STAT IM 07/08/20 19:43 07/08/20 19:50 DC 07/08/20 20:03 Magnesium Hydroxide (Milk Of Magnesia) 30 ml DAILYPRN PRN PO CONSTIPATION 07/08/20 15:30 07/08/20 18:08 DC Magnesium Hydroxide (Milk Of Magnesia) 30 ml DAILYPRN PRN PO CONSTIPATION 07/08/20 19:00 Miscellaneous (Unresolved Clarification Entry) SEE LABEL COMMENTS DAILY XX 07/14/20 09:00 Nicotine (Nicoderm Cq 21mg) 1 patch DAILY TD 07/08/20 09:00 07/14/20 09:07 Olanzapine (ZyPREXA ZYDIS) 5 mg DAILY PO 07/09/20 09:00 07/13/20 15:50 DC 07/13/20 08:05 Olanzapine (ZyPREXA ZYDIS) 5 mg Q4HP PRN PO AGITATION 07/08/20 19:00 07/13/20 14:54 Olanzapine (ZyPREXA ZYDIS) 10 mg DAILY PO 07/14/20 09:00 07/14/20 08:12 Olanzapine (ZyPREXA ZYDIS) 10 mg Q4HP PRN PO AGITATION 07/08/20 15:30 07/08/20 18:08 DC Olanzapine (ZyPREXA ZYDIS) 10 mg QHS PO 07/08/20 21:00 07/13/20 20:15 Trazodone HCl (Desyrel) 50 mg QHSP PRN PO INSOMNIA 07/08/20 15:30 07/08/20 18:08 DC Trazodone HCl (Desyrel) 50 mg QHSP PRN PO INSOMNIA 07/08/20 19:00 07/12/20 20:11 Allergies Coded Allergies: No Known Allergies (Unverified , 09/07/14) TIFFANIE BARNES MD Jul 14, 2020 15:46
[2020-07-14] MEDS: LORazepam 1 MG TAB PO PRN (20:51)
[2020-07-14] MEDS: traZODone 50 MG TAB PO PRN (20:51)
[2020-07-15 06:43] VITALS: BP 127/65
[2020-07-15 07:35] LABS: ALBUMIN 3.7 GM/DL (3.2-5.2); BILIRUBIN,DIRECT 0.1 MG/DL (0.0-0.2); BILIRUBIN,TOTAL 0.2 MG/DL (0.2-1.0); CHOLESTEROL RISK RATIO 3.857 (<5); TOTAL PROTEIN 7.4 GM/DL (6.4-8.2); VALPROIC ACID (DEPAKOTE) 51.8 UG/ML (50.0-100.0)
[2020-07-15] MEDS: DOXYCYCLINE HYCLATE 100MG TABLET PO SCH ×2 (08:11→20:56)
[2020-07-15] MEDS: DIVALPROEX 250 MG TAB PO SCH ×2 (08:11→20:57)
[2020-07-15] MEDS: ARIPiprazole 15 MG TAB (AbiLIFY) PO SCH ×2 (08:12→20:56)
[2020-07-15] MEDS: CETIRIZINE (ZyrTEC) 10 MG TAB PO SCH (08:13)
[2020-07-15] MEDS: NICOTINE 21MG/24HR 1 EA TRANSDERMAL TD SCH (08:13)
[2020-07-15] MEDS: DIMETHICONE 2% OINTMENT(VANICREAM) 70GM TUBE TOP SCH ×2 (08:14→21:00)
[2020-07-15 19:22] VITALS: BP 138/84
[2020-07-15] MEDS: MOM 30ML SUSPENSION UDC PO PRN (19:55)
[2020-07-15] MEDS: traZODone 50 MG TAB PO PRN (20:56)
--- NOTE | 2020-07-15 21:37 | MHIPNPDOC ---
[facility] Progress Note Progress Note DATE OF SERVICE: 07/15/20 HISTORY: This patient was brought to the Emergency Room and admitted due to what appears to be psychotic and manic-like state. According to the grandmother, the patient had been running around naked. She is very sabianism and very hypersexual and speech is pressured. There was no way to get much information from her. Apparently the patient had not been eating or sleeping and she has stopped taking her medications. VITAL SIGNS: See below. CURRENT MEDICATIONS: See below. MENTAL STATUS EXAMINATION: Patient is a 20-year old female, who was brought to [facility] for psychotic symptoms. Speech: Is loud, pressure speech, fast rate, tone and volume Language skills are intact Thought processes including: disorganized, circumstantial, derailed, manic Thought content: She denies SI/HI, has somatic and sabianism preoccupation Description of associations: denies, none observed Description of abnormal or psychotic thoughts: She denies TAV hallucinations but she is delusional Judgment: poor Insight: poor Orientation: alert and oriented to person, place, time and situation Recent and remote memory: intact Attention span and concentration: good Language: expansive Fund of knowledge: average Mood: Anxious/irritable Mood Affect: reactive, full, congruent with mood DIAGNOSES: 1. Schizoaffective disorder, bipolar type. 2. Mild intellectual disability. 3. Cannabis use disorder ASSESSMENT: Patient complains about multiple somatic problems, including an upset stomach. "I don't want to talk about food because I feel I want to throw up, I know you told me to eat more vegetables to keep my weight under control but I hate vegetables and I don't like the food in this Hospital. I feel horrible". the patient's lab results are mostly within normal limits except for her triglyceride levels that are 154 ( nomral is 150) and her Depakote levels are 51.8 mcg which falls within the normal range but is very low because she just has started treatment. She is still manic, has pressured speech, her thought process is disorganized. MANAGEMENT PLAN: Continue Depakote to 500 mgs PO BID -discontinue Zyprexa 10 mgs PO BID -Start Abilify 7.5 mgs PO BID TIME SPENT: 30 minutes. Vital Signs Vital Signs Date Time Temp Pulse Resp B/P (MAP) Pulse Ox O2 Delivery O2 Flow Rate FiO2 07/15/20 06:43 99.0 87 20 127/65 (85) 99 Room Air Laboratory Data 24H Labs Laboratory Tests 2 07/15/20 06:55: Total Bilirubin 0.2, Direct Bilirubin 0.1, Aspartate Amino Transf (AST/SGOT) 23, Alanine Aminotransferase (ALT/SGPT) 53, Alkaline Phosphatase 83, Total Protein 7.4, Albumin 3.7, Albumin/Globulin Ratio 1.0L, Triglycerides Level 154H, Total Cholesterol 135, LDL Cholesterol 69, Non-HDL Cholesterol (LDL + VLDL) 100, Total HDL Cholesterol 35L, Cholesterol/HDL Ratio 3.857, Valproic Acid (Depakene) Level 51.8 Current Medications Current Medications Medications (Trade) Dose Ordered Sig/Sanam Route PRN Reason Start Time Stop Time Status Last Admin Dose Admin Al Hydrox/Mg Hydrox/Simethicone (Mylanta) 30 ml Q4HP PRN PO HEARTBURN/INDIGESTION 07/08/20 15:30 07/08/20 18:08 DC Al Hydrox/Mg Hydrox/Simethicone (Mylanta) 30 ml Q4HP PRN PO HEARTBURN/INDIGESTION 07/08/20 19:00 Aripiprazole (AbiLIFY) 7.5 mg BID PO 07/14/20 21:00 07/15/20 08:12 Cetirizine HCl (ZyrTEC) 10 mg DAILY PO 07/11/20 09:00 07/15/20 08:13 Cetylpyridinium Chloride (Cepacol) 2 rishabh Q2HP PRN PO SORE THROAT 07/10/20 12:30 07/13/20 16:11 Dimethicone (Vanicream Ointment) 1 dose BID TOP 07/12/20 21:00 07/13/20 08:05 Diphenhydramine HCl (Benadryl) 50 mg STAT STAT IM 07/08/20 19:43 07/08/20 19:50 DC 07/08/20 20:03 Divalproex Sodium (Depakote) 250 mg BID PO 07/13/20 09:00 07/13/20 15:48 DC 07/13/20 08:05 Divalproex Sodium (Depakote) 500 mg BID PO 07/13/20 21:00 07/15/20 08:11 Doxycycline Hyclate (Vibramycin) 100 mg BID PO 07/12/20 21:00 07/19/20 20:59 07/15/20 08:11 Haloperidol (Haldol) 10 mg STAT STAT IM 07/08/20 19:43 07/08/20 19:50 DC 07/08/20 20:03 Ibuprofen (Advil) 400 mg Q6HP PRN PO PAIN 07/08/20 15:30 07/08/20 18:08 DC Ibuprofen (Advil) 400 mg Q6HP PRN PO PAIN 07/08/20 19:00 07/14/20 09:09 Lorazepam (Ativan) 1 mg Q4HP PRN PO ANXIETY/AGITATION 07/08/20 15:30 07/08/20 18:08 DC Lorazepam (Ativan) 1 mg Q4HP PRN PO ANXIETY/AGITATION 07/08/20 19:00 07/14/20 20:51 Lorazepam (Ativan) 2 mg STAT STAT IM 07/08/20 19:43 07/08/20 19:50 DC 07/08/20 20:03 Magnesium Hydroxide (Milk Of Magnesia) 30 ml DAILYPRN PRN PO CONSTIPATION 07/08/20 15:30 07/08/20 18:08 DC Magnesium Hydroxide (Milk Of Magnesia) 30 ml DAILYPRN PRN PO CONSTIPATION 07/08/20 19:00 Miscellaneous (Unresolved Clarification Entry) SEE LABEL COMMENTS DAILY XX 07/14/20 09:00 Nicotine (Nicoderm Cq 21mg) 1 patch DAILY TD 07/08/20 09:00 07/15/20 08:13 Olanzapine (ZyPREXA ZYDIS) 5 mg DAILY PO 07/09/20 09:00 07/13/20 15:50 DC 07/13/20 08:05 Olanzapine (ZyPREXA ZYDIS) 5 mg Q4HP PRN PO AGITATION 07/08/20 19:00 07/13/20 14:54 Olanzapine (ZyPREXA ZYDIS) 10 mg BID PO 07/14/20 21:00 Cancel Olanzapine (ZyPREXA ZYDIS) 10 mg DAILY PO 07/14/20 09:00 07/14/20 15:52 DC 07/14/20 08:12 Olanzapine (ZyPREXA ZYDIS) 10 mg Q4HP PRN PO AGITATION 07/08/20 15:30 07/08/20 18:08 DC Olanzapine (ZyPREXA ZYDIS) 10 mg QHS PO 07/08/20 21:00 07/14/20 15:54 DC 07/13/20 20:15 Trazodone HCl (Desyrel) 50 mg QHSP PRN PO INSOMNIA 07/08/20 15:30 07/08/20 18:08 DC Trazodone HCl (Desyrel) 50 mg QHSP PRN PO INSOMNIA 07/08/20 19:00 07/14/20 20:51 Allergies Coded Allergies: No Known Allergies (Unverified , 09/07/14) TIFFANIE BARNES MD Jul 15, 2020 15:28
[2020-07-16 06:50] VITALS: BP 147/84
[2020-07-16] MEDS: DOXYCYCLINE HYCLATE 100MG TABLET PO SCH ×2 (08:05→20:07)
[2020-07-16] MEDS: CETIRIZINE (ZyrTEC) 10 MG TAB PO SCH (08:06)
[2020-07-16] MEDS: ARIPiprazole 15 MG TAB (AbiLIFY) PO SCH ×2 (08:07→20:06)
[2020-07-16] MEDS: DIVALPROEX 250 MG TAB PO SCH ×2 (08:07→20:07)
[2020-07-16] MEDS: PILL CUTTER 1 EACH XX PRN (08:08)
[2020-07-16] MEDS: NICOTINE 21MG/24HR 1 EA TRANSDERMAL TD SCH (08:10)
[2020-07-16] MEDS: DIMETHICONE 2% OINTMENT(VANICREAM) 70GM TUBE TOP SCH ×2 (08:10→20:10)
[2020-07-16 18:44] VITALS: BP 137/73
[2020-07-16] MEDS: LORazepam 1 MG TAB PO PRN (20:06)
[2020-07-16] MEDS: traZODone 50 MG TAB PO PRN (20:07)
[2020-07-17 06:31] VITALS: BP 133/65
[2020-07-17] MEDS: DIVALPROEX 250 MG TAB PO SCH ×2 (08:00→20:01)
[2020-07-17] MEDS: NICOTINE 21MG/24HR 1 EA TRANSDERMAL TD SCH (08:00)
[2020-07-17] MEDS: DOXYCYCLINE HYCLATE 100MG TABLET PO SCH ×2 (08:00→20:02)
[2020-07-17] MEDS: PILL CUTTER 1 EACH XX PRN (08:00)
[2020-07-17] MEDS: CETIRIZINE (ZyrTEC) 10 MG TAB PO SCH (08:00)
[2020-07-17] MEDS: ARIPiprazole 15 MG TAB (AbiLIFY) PO SCH ×2 (08:01→20:00)
[2020-07-17] MEDS: DIMETHICONE 2% OINTMENT(VANICREAM) 70GM TUBE TOP SCH ×2 (08:02→20:27)
[2020-07-17] MEDS: MOM 30ML SUSPENSION UDC PO PRN (14:35)
[2020-07-17 18:45] VITALS: BP 109/64
[2020-07-18 07:12] VITALS: BP 123/62
[2020-07-18] MEDS: DIMETHICONE 2% OINTMENT(VANICREAM) 70GM TUBE TOP SCH ×2 (08:07→20:31)
[2020-07-18] MEDS: ARIPiprazole 15 MG TAB (AbiLIFY) PO SCH ×2 (08:09→20:30)
[2020-07-18] MEDS: PILL CUTTER 1 EACH XX PRN (08:09)
[2020-07-18] MEDS: CETIRIZINE (ZyrTEC) 10 MG TAB PO SCH (08:10)
[2020-07-18] MEDS: DOXYCYCLINE HYCLATE 100MG TABLET PO SCH ×2 (08:10→20:30)
[2020-07-18] MEDS: DIVALPROEX 250 MG TAB PO SCH ×2 (08:10→20:31)
[2020-07-18] MEDS: NICOTINE 21MG/24HR 1 EA TRANSDERMAL TD SCH (08:11)
[2020-07-18] MEDS: OLANZapine ORAL DISINTEGRATING TAB 5MG PO PRN (15:02)
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
[2020-07-18 16:00] VITALS: BP 127/60
[2020-07-18] MEDS: traZODone 50 MG TAB PO PRN (21:17)
[2020-07-19 07:08] VITALS: BP 132/94
[2020-07-19] MEDS: DOXYCYCLINE HYCLATE 100MG TABLET PO SCH (08:13)
[2020-07-19] MEDS: DIVALPROEX 250 MG TAB PO SCH ×3 (08:13→19:54)
[2020-07-19] MEDS: CETIRIZINE (ZyrTEC) 10 MG TAB PO SCH (08:14)
[2020-07-19] MEDS: PILL CUTTER 1 EACH XX PRN ×2 (08:14→20:00)
[2020-07-19] MEDS: ARIPiprazole 15 MG TAB (AbiLIFY) PO SCH ×2 (08:14→20:00)
[2020-07-19] MEDS: OLANZapine ORAL DISINTEGRATING TAB 5MG PO PRN ×2 (08:14→20:00)
[2020-07-19] MEDS: NICOTINE 21MG/24HR 1 EA TRANSDERMAL TD SCH (08:14)
[2020-07-19] MEDS: DIMETHICONE 2% OINTMENT(VANICREAM) 70GM TUBE TOP SCH ×2 (08:18→19:57)
[2020-07-19 16:29] VITALS: BP 110/62
[2020-07-20 06:19] VITALS: BP 116/54
[2020-07-20] MEDS: PILL CUTTER 1 EACH XX PRN ×2 (08:03→20:06)
[2020-07-20] MEDS: ARIPiprazole 15 MG TAB (AbiLIFY) PO SCH ×2 (08:03→20:06)
[2020-07-20] MEDS: CETIRIZINE (ZyrTEC) 10 MG TAB PO SCH (08:04)
[2020-07-20] MEDS: DIVALPROEX 250 MG TAB PO SCH ×3 (08:05→20:06)
[2020-07-20] MEDS: NICOTINE 21MG/24HR 1 EA TRANSDERMAL TD SCH (08:06)
[2020-07-20] MEDS: DIMETHICONE 2% OINTMENT(VANICREAM) 70GM TUBE TOP SCH ×2 (08:06→20:05)
--- NOTE | 2020-07-20 09:18 | MHIPN ---
COUNT INCLUDES THE [facility] PROGRESS NOTE DATE: 07/19/2020 The patient is quite manic with pressured speech. She goes on to complain of nausea, she thinks this is the Depakote and that her appetite is down. She states "I keep tasting marijuana in my mouth and I don't want to have anything to do with that paraphernalia anymore." MENTAL STATUS EXAMINATION: She is alert and oriented times three. Speech is pressured, she has flight of ideas. She still does have some paranoid thoughts about the financial problems and IRS and identity theft. She is not suicidal or homicidal. Concentration is fair. Memory intact. Insight and judgment poor. DIAGNOSES: Schizoaffective disorder bipolar type. Mild intellectual disability. Cannabis use disorder. TREATMENT PLAN: At this point, the patient was just started on Abilify 7.5 mg twice a day. I recommended to the patient to consider a long acting injectable like Abilify Maintena but she was not interested in that, stating that she is afraid of needles. Her Depakote was decreased to 750 mg because her level was a little bit on the high side of 100 so we will continue to monitor that. We will continue to monitor her for paranoid and manic-like symptoms and continue to titrate her medications as indicated.
--- NOTE | 2020-07-20 15:47 | MHIPNPDOC ---
[facility] Progress Note Progress Note DATE OF SERVICE: 07/20/20 HISTORY: Magaly Harrison met with me today. She was admitted following a significant manic episode. She states that she was smoking pot and that she has not properly taken care of herself. Her parents live in [place] and she lives in [place] with her elderly grandmother. Patient is still significantly thought disordered, but gives a history of her adoption from [facility] with her sister. She states she has been admitted numerous times, but "chose the wrong path". She has smoked marijuana self medicated. She states she presently didn't taste and smell marijuana. She wants to go home. She states that she was significantly improved and aggressive when she was admitted. And she states she has been here for 2 weeks.. VITAL SIGNS: See below. NEW TEST RESULTS: . CURRENT MEDICATIONS: See below. MENTAL STATUS EXAMINATION: Patient is a 20-year old female, who is admitted following a psychotic episode. Speech: Is, rapid. Language skills are intact. Thought processes including: Focused on discharge and focused on self-care. Thought content: Thoughts on self-care. Abstract reasoning, and computation:, Good. Description of associations: Loose. Description of abnormal or psychotic thoughts: Did not presently express psychotic thoughts. Judgment:, Poor. Insight: Poor. Orientation:, Fully oriented. Recent and remote memory:, Intact. Attention span and concentration:. Fair. Language: Intact. Fund of knowledge:. Good. Mood: Elevated. Affect: Neutrophil. DIAGNOSES: 1.. Bipolar disorder with psychotic features. 2.. Substance abuse. ASSESSMENT: This young lady at 20 years old has a history of bipolar disorder with noncompliance. She is demonstrating hypomania still and has been placed on Abilify and Depakote.. Her Depakote level is within normal range, but she is still being assessed by me as hypomanic, with poor judgment MANAGEMENT PLAN:. Continue medications and continue to assess patient's state of saima. TIME SPENT: 35 minutes. Vital Signs Vital Signs Date Time Temp Pulse Resp B/P (MAP) Pulse Ox O2 Delivery O2 Flow Rate FiO2 07/20/20 06:19 97.5 97 15 116/54 (74) 07/19/20 16:29 96 Room Air Laboratory Data 24H Labs Laboratory Tests 2 07/20/20 06:39: Valproic Acid (Depakene) Level 77.2 Current Medications Current Medications Medications (Trade) Dose Ordered Sig/Sanam Route PRN Reason Start Time Stop Time Status Last Admin Dose Admin Al Hydrox/Mg Hydrox/Simethicone (Mylanta) 30 ml Q4HP PRN PO HEARTBURN/INDIGESTION 07/08/20 15:30 07/08/20 18:08 DC Al Hydrox/Mg Hydrox/Simethicone (Mylanta) 30 ml Q4HP PRN PO HEARTBURN/INDIGESTION 07/08/20 19:00 07/16/20 10:54 Aripiprazole (AbiLIFY) 7.5 mg BID PO 07/14/20 21:00 07/20/20 08:03 Cetirizine HCl (ZyrTEC) 10 mg DAILY PO 07/11/20 09:00 07/20/20 08:04 Cetylpyridinium Chloride (Cepacol) 2 rishabh Q2HP PRN PO SORE THROAT 07/10/20 12:30 07/13/20 16:11 Dimethicone (Vanicream Ointment) 1 dose BID TOP 07/12/20 21:00 07/13/20 08:05 Diphenhydramine HCl (Benadryl) 50 mg STAT STAT IM 07/08/20 19:43 07/08/20 19:50 DC 07/08/20 20:03 Divalproex Sodium (Depakote) 250 mg BID PO 07/13/20 09:00 07/13/20 15:48 DC 07/13/20 08:05 Divalproex Sodium (Depakote) 250 mg TID PO 07/18/20 21:00 07/20/20 08:05 Divalproex Sodium (Depakote) 500 mg BID PO 07/13/20 21:00 07/18/20 12:30 DC 07/18/20 08:10 Doxycycline Hyclate (Vibramycin) 100 mg BID PO 07/12/20 21:00 07/19/20 20:59 DC 07/19/20 08:13 Haloperidol (Haldol) 10 mg STAT STAT IM 07/08/20 19:43 07/08/20 19:50 DC 07/08/20 20:03 Ibuprofen (Advil) 400 mg Q6HP PRN PO PAIN 07/08/20 15:30 07/08/20 18:08 DC Ibuprofen (Advil) 400 mg Q6HP PRN PO PAIN 07/08/20 19:00 07/14/20 09:09 Lorazepam (Ativan) 1 mg Q4HP PRN PO ANXIETY/AGITATION 07/08/20 15:30 07/08/20 18:08 DC Lorazepam (Ativan) 1 mg Q4HP PRN PO ANXIETY/AGITATION 07/08/20 19:00 07/16/20 20:06 Lorazepam (Ativan) 2 mg STAT STAT IM 07/08/20 19:43 07/08/20 19:50 DC 07/08/20 20:03 Magnesium Hydroxide (Milk Of Magnesia) 30 ml DAILYPRN PRN PO CONSTIPATION 07/08/20 15:30 07/08/20 18:08 DC Magnesium Hydroxide (Milk Of Magnesia) 30 ml DAILYPRN PRN PO CONSTIPATION 07/08/20 19:00 07/17/20 14:35 Miscellaneous (Unresolved Clarification Entry) SEE LABEL COMMENTS DAILY XX 07/14/20 09:00 07/16/20 09:58 DC Miscellaneous (Unresolved Clarification Entry) SEE LABEL COMMENTS DAILY XX 07/17/20 09:00 07/18/20 12:31 DC Nicotine (Nicoderm Cq 21mg) 1 patch DAILY TD 07/08/20 09:00 07/20/20 08:06 Olanzapine (ZyPREXA ZYDIS) 5 mg DAILY PO 07/09/20 09:00 07/13/20 15:50 DC 07/13/20 08:05 Olanzapine (ZyPREXA ZYDIS) 5 mg Q4HP PRN PO AGITATION 07/08/20 19:00 07/19/20 20:00 Olanzapine (ZyPREXA ZYDIS) 10 mg BID PO 07/14/20 21:00 Cancel Olanzapine (ZyPREXA ZYDIS) 10 mg DAILY PO 07/14/20 09:00 07/14/20 15:52 DC 07/14/20 08:12 Olanzapine (ZyPREXA ZYDIS) 10 mg Q4HP PRN PO AGITATION 07/08/20 15:30 07/08/20 18:08 DC Olanzapine (ZyPREXA ZYDIS) 10 mg QHS PO 07/08/20 21:00 07/14/20 15:54 DC 07/13/20 20:15 Trazodone HCl (Desyrel) 50 mg QHSP PRN PO INSOMNIA 07/08/20 15:30 07/08/20 18:08 DC Trazodone HCl (Desyrel) 50 mg QHSP PRN PO INSOMNIA 07/08/20 19:00 07/18/20 21:17 Allergies Coded Allergies: No Known Allergies (Unverified , 09/07/14) GARCIA HUA MD Jul 20, 2020 15:47
[2020-07-20 16:09] VITALS: BP 116/64
[2020-07-21 06:01] VITALS: BP 127/61
[2020-07-21] MEDS: ARIPiprazole 15 MG TAB (AbiLIFY) PO SCH ×2 (08:08→20:01)
[2020-07-21] MEDS: NICOTINE 21MG/24HR 1 EA TRANSDERMAL TD SCH (08:08)
[2020-07-21] MEDS: CETIRIZINE (ZyrTEC) 10 MG TAB PO SCH (08:08)
[2020-07-21] MEDS: DIVALPROEX 250 MG TAB PO SCH ×3 (08:08→20:01)
[2020-07-21] MEDS: DIMETHICONE 2% OINTMENT(VANICREAM) 70GM TUBE TOP SCH ×2 (08:09→20:01)
[2020-07-21] MEDS: PILL CUTTER 1 EACH XX PRN (08:16)
--- NOTE | 2020-07-21 11:26 | MHIPNPDOC ---
[facility] Progress Note Progress Note DATE OF SERVICE: 07/21/20 HISTORY: 20-year-old female with a history of poor compliance and recurrent bipolar disorder admitted in a manic state. VITAL SIGNS: See below. NEW TEST RESULTS: Depakote level planned for Saturday. CURRENT MEDICATIONS: See below. MENTAL STATUS EXAMINATION: Patient is a 20-year-old female-year old female, who is in continued manic state with some improvement. At this point, no change in medication but will re evaluate Depakote level as patient continues manic. Speech: Is, rapid. Language skills are contact. Thought processes including: Self-critical. Thought content:, Focused on positivity, but less on facts. Abstract reasoning, and computation: Able to abstract. Description of associations: Loose Description of abnormal or psychotic thoughts: Rapid thinking with no sign of psychotic thought. Judgment: Improving. Insight: Fair. Orientation: 3. Recent and remote memory: Intact. Attention span and concentration: Poor. Language:. No disturbance. Fund of knowledge: Full. Mood: Elevated. Affect: Neutrophil. DIAGNOSES: 1.. Bipolar disorder, manic type. 2.. Marijuana abuse. 3., Obesity. ASSESSMENT:, 20-year-old female continues manic treated with Abilify and Depakote. We'll continue to evaluate her medications and levels MANAGEMENT PLAN: As above with concerns about her living with her grandmother. TIME SPENT:, 45 minutes. Vital Signs Vital Signs Date Time Temp Pulse Resp B/P (MAP) Pulse Ox O2 Delivery O2 Flow Rate FiO2 07/21/20 06:01 97.0 94 16 127/61 (83) 98 Room Air Current Medications Current Medications Medications (Trade) Dose Ordered Sig/Sanam Route PRN Reason Start Time Stop Time Status Last Admin Dose Admin Al Hydrox/Mg Hydrox/Simethicone (Mylanta) 30 ml Q4HP PRN PO HEARTBURN/INDIGESTION 07/08/20 15:30 07/08/20 18:08 DC Al Hydrox/Mg Hydrox/Simethicone (Mylanta) 30 ml Q4HP PRN PO HEARTBURN/INDIGESTION 07/08/20 19:00 07/16/20 10:54 Aripiprazole (AbiLIFY) 7.5 mg BID PO 07/14/20 21:00 07/21/20 08:08 Cetirizine HCl (ZyrTEC) 10 mg DAILY PO 07/11/20 09:00 07/21/20 08:08 Cetylpyridinium Chloride (Cepacol) 2 rishabh Q2HP PRN PO SORE THROAT 07/10/20 12:30 07/13/20 16:11 Dimethicone (Vanicream Ointment) 1 dose BID TOP 07/12/20 21:00 07/20/20 20:05 Diphenhydramine HCl (Benadryl) 50 mg STAT STAT IM 07/08/20 19:43 07/08/20 19:50 DC 07/08/20 20:03 Divalproex Sodium (Depakote) 250 mg BID PO 07/13/20 09:00 07/13/20 15:48 DC 07/13/20 08:05 Divalproex Sodium (Depakote) 250 mg TID PO 07/18/20 21:00 07/21/20 08:08 Divalproex Sodium (Depakote) 500 mg BID PO 07/13/20 21:00 07/18/20 12:30 DC 07/18/20 08:10 Doxycycline Hyclate (Vibramycin) 100 mg BID PO 07/12/20 21:00 07/19/20 20:59 DC 07/19/20 08:13 Haloperidol (Haldol) 10 mg STAT STAT IM 07/08/20 19:43 07/08/20 19:50 DC 07/08/20 20:03 Ibuprofen (Advil) 400 mg Q6HP PRN PO PAIN 07/08/20 15:30 07/08/20 18:08 DC Ibuprofen (Advil) 400 mg Q6HP PRN PO PAIN 07/08/20 19:00 07/14/20 09:09 Lorazepam (Ativan) 1 mg Q4HP PRN PO ANXIETY/AGITATION 07/08/20 15:30 07/08/20 18:08 DC Lorazepam (Ativan) 1 mg Q4HP PRN PO ANXIETY/AGITATION 07/08/20 19:00 07/16/20 20:06 Lorazepam (Ativan) 2 mg STAT STAT IM 07/08/20 19:43 07/08/20 19:50 DC 07/08/20 20:03 Magnesium Hydroxide (Milk Of Magnesia) 30 ml DAILYPRN PRN PO CONSTIPATION 07/08/20 15:30 07/08/20 18:08 DC Magnesium Hydroxide (Milk Of Magnesia) 30 ml DAILYPRN PRN PO CONSTIPATION 07/08/20 19:00 07/17/20 14:35 Miscellaneous (Unresolved Clarification Entry) SEE LABEL COMMENTS DAILY XX 07/14/20 09:00 07/16/20 09:58 DC Miscellaneous (Unresolved Clarification Entry) SEE LABEL COMMENTS DAILY XX 07/17/20 09:00 07/18/20 12:31 DC Nicotine (Nicoderm Cq 21mg) 1 patch DAILY TD 07/08/20 09:00 07/21/20 08:08 Olanzapine (ZyPREXA ZYDIS) 5 mg DAILY PO 07/09/20 09:00 07/13/20 15:50 DC 07/13/20 08:05 Olanzapine (ZyPREXA ZYDIS) 5 mg Q4HP PRN PO AGITATION 07/08/20 19:00 07/19/20 20:00 Olanzapine (ZyPREXA ZYDIS) 10 mg BID PO 07/14/20 21:00 Cancel Olanzapine (ZyPREXA ZYDIS) 10 mg DAILY PO 07/14/20 09:00 07/14/20 15:52 DC 07/14/20 08:12 Olanzapine (ZyPREXA ZYDIS) 10 mg Q4HP PRN PO AGITATION 07/08/20 15:30 07/08/20 18:08 DC Olanzapine (ZyPREXA ZYDIS) 10 mg QHS PO 07/08/20 21:00 07/14/20 15:54 DC 07/13/20 20:15 Trazodone HCl (Desyrel) 50 mg QHSP PRN PO INSOMNIA 07/08/20 15:30 07/08/20 18:08 DC Trazodone HCl (Desyrel) 50 mg QHSP PRN PO INSOMNIA 07/08/20 19:00 07/18/20 21:17 Allergies Coded Allergies: No Known Allergies (Unverified , 09/07/14) GARCIA HUA MD Jul 21, 2020 11:26
[2020-07-21 19:21] VITALS: BP 133/66
[2020-07-21] MEDS: LORazepam 1 MG TAB PO PRN (21:27)
[2020-07-21] MEDS: traZODone 50 MG TAB PO PRN (21:27)
[2020-07-22 06:47] VITALS: BP 119/60
[2020-07-22] MEDS: CETIRIZINE (ZyrTEC) 10 MG TAB PO SCH (08:13)
[2020-07-22] MEDS: ARIPiprazole 15 MG TAB (AbiLIFY) PO SCH (08:13)
[2020-07-22] MEDS: NICOTINE 21MG/24HR 1 EA TRANSDERMAL TD SCH (08:13)
[2020-07-22] MEDS: DIVALPROEX 250 MG TAB PO SCH ×3 (08:13→20:10)
[2020-07-22] MEDS: PILL CUTTER 1 EACH XX PRN (08:13)
[2020-07-22] MEDS: DIMETHICONE 2% OINTMENT(VANICREAM) 70GM TUBE TOP SCH ×2 (08:16→20:10)
--- NOTE | 2020-07-22 11:02 | MHIPNPDOC ---
[facility] Progress Note Progress Note DATE OF SERVICE: 07/22/20 HISTORY: 20-year-old female living with her grandmother, with a long history of bipolar disorder complicated by some marijuana use. VITAL SIGNS: See below. NEW TEST RESULTS: We'll get Depakote level Saturday. CURRENT MEDICATIONS: See below. MENTAL STATUS EXAMINATION: Patient is a 20-year-old female-year old female, who continuing to be in a manic to hypomanic state. Speech: Is. Rapid. Language skills are intact. Thought processes including: Wanting discharge, but agrees medicine isn't working. Thought content: Focused on boyfriend discharge and grandmother. Abstract reasoning, and computation: Will to abstract. Description of associations:. No loose associations noted. Description of abnormal or psychotic thoughts:. Patient still is in the high mood, and hyperverbal. Judgment:, Improving. Insight: Good. Orientation: 3. Recent and remote memory: Intact. Attention span and concentration:. Fair. Language: Intact. Fund of knowledge: Full. Mood: Irritable. Affect:, Congruent. DIAGNOSES: 1. Bipolar disorder. 2. Substance abuse 3., Family stress. ASSESSMENT: Staff and I agree that patient has not shown significant improvement during this stay. This is motivated me to discontinue her Abilify and changing to Zyprexa. I understand that on Depakote 1000 mg patient had a higher level and was reduced to 750, but patient states she did not have any significant side effects at 1000 mg MANAGEMENT PLAN: Changed to Zyprexa and continued to talk with grandmother and parents serving long-term planning. Continue to try to stabilize patient's mood disorder. TIME SPENT: 35 minutes. Vital Signs Vital Signs Date Time Temp Pulse Resp B/P (MAP) Pulse Ox O2 Delivery O2 Flow Rate FiO2 07/22/20 06:47 98.4 86 16 119/60 (79) 96 Room Air Current Medications Current Medications Medications (Trade) Dose Ordered Sig/Sanam Route PRN Reason Start Time Stop Time Status Last Admin Dose Admin Al Hydrox/Mg Hydrox/Simethicone (Mylanta) 30 ml Q4HP PRN PO HEARTBURN/INDIGESTION 07/08/20 15:30 07/08/20 18:08 DC Al Hydrox/Mg Hydrox/Simethicone (Mylanta) 30 ml Q4HP PRN PO HEARTBURN/INDIGESTION 07/08/20 19:00 07/16/20 10:54 Aripiprazole (AbiLIFY) 7.5 mg BID PO 07/14/20 21:00 07/22/20 10:53 DC 07/22/20 08:13 Cetirizine HCl (ZyrTEC) 10 mg DAILY PO 07/11/20 09:00 07/22/20 08:13 Cetylpyridinium Chloride (Cepacol) 2 rishabh Q2HP PRN PO SORE THROAT 07/10/20 12:30 07/13/20 16:11 Dimethicone (Vanicream Ointment) 1 dose BID TOP 07/12/20 21:00 07/22/20 08:16 Diphenhydramine HCl (Benadryl) 50 mg STAT STAT IM 07/08/20 19:43 07/08/20 19:50 DC 07/08/20 20:03 Divalproex Sodium (Depakote) 250 mg BID PO 07/13/20 09:00 07/13/20 15:48 DC 07/13/20 08:05 Divalproex Sodium (Depakote) 250 mg TID PO 07/18/20 21:00 07/22/20 08:13 Divalproex Sodium (Depakote) 500 mg BID PO 07/13/20 21:00 07/18/20 12:30 DC 07/18/20 08:10 Doxycycline Hyclate (Vibramycin) 100 mg BID PO 07/12/20 21:00 07/19/20 20:59 DC 07/19/20 08:13 Haloperidol (Haldol) 10 mg STAT STAT IM 07/08/20 19:43 07/08/20 19:50 DC 07/08/20 20:03 Ibuprofen (Advil) 400 mg Q6HP PRN PO PAIN 07/08/20 15:30 07/08/20 18:08 DC Ibuprofen (Advil) 400 mg Q6HP PRN PO PAIN 07/08/20 19:00 07/14/20 09:09 Lorazepam (Ativan) 1 mg Q4HP PRN PO ANXIETY/AGITATION 07/08/20 15:30 07/08/20 18:08 DC Lorazepam (Ativan) 1 mg Q4HP PRN PO ANXIETY/AGITATION 07/08/20 19:00 07/21/20 21:27 Lorazepam (Ativan) 2 mg STAT STAT IM 07/08/20 19:43 07/08/20 19:50 DC 07/08/20 20:03 Magnesium Hydroxide (Milk Of Magnesia) 30 ml DAILYPRN PRN PO CONSTIPATION 07/08/20 15:30 07/08/20 18:08 DC Magnesium Hydroxide (Milk Of Magnesia) 30 ml DAILYPRN PRN PO CONSTIPATION 07/08/20 19:00 07/17/20 14:35 Miscellaneous (Unresolved Clarification Entry) SEE LABEL COMMENTS DAILY XX 07/14/20 09:00 07/16/20 09:58 DC Miscellaneous (Unresolved Clarification Entry) SEE LABEL COMMENTS DAILY XX 07/17/20 09:00 07/18/20 12:31 DC Nicotine (Nicoderm Cq 21mg) 1 patch DAILY TD 07/08/20 09:00 07/22/20 08:13 Olanzapine (ZyPREXA ZYDIS) 5 mg DAILY PO 07/09/20 09:00 07/13/20 15:50 DC 07/13/20 08:05 Olanzapine (ZyPREXA ZYDIS) 5 mg Q4HP PRN PO AGITATION 07/08/20 19:00 07/19/20 20:00 Olanzapine (ZyPREXA ZYDIS) 10 mg BID PO 07/14/20 21:00 Cancel Olanzapine (ZyPREXA ZYDIS) 10 mg DAILY PO 07/14/20 09:00 07/14/20 15:52 DC 07/14/20 08:12 Olanzapine (ZyPREXA ZYDIS) 10 mg Q4HP PRN PO AGITATION 07/08/20 15:30 07/08/20 18:08 DC Olanzapine (ZyPREXA ZYDIS) 10 mg QHS PO 07/08/20 21:00 07/14/20 15:54 DC 07/13/20 20:15 Olanzapine (ZyPREXA) 10 mg QHS PO 07/22/20 21:00 Trazodone HCl (Desyrel) 50 mg QHSP PRN PO INSOMNIA 07/08/20 15:30 07/08/20 18:08 DC Trazodone HCl (Desyrel) 50 mg QHSP PRN PO INSOMNIA 07/08/20 19:00 07/21/20 21:27 Allergies Coded Allergies: No Known Allergies (Unverified , 09/07/14) GARCIA HUA MD Jul 22, 2020 11:02
[2020-07-22 16:58] VITALS: BP 121/77
[2020-07-22] MEDS: OLANZapine 10 MG TAB PO SCH (20:10)
[2020-07-22] MEDS: traZODone 50 MG TAB PO PRN (20:10)
[2020-07-23 07:01] VITALS: BP 163/63
[2020-07-23] MEDS: NICOTINE 21MG/24HR 1 EA TRANSDERMAL TD SCH (08:03)
[2020-07-23] MEDS: DIMETHICONE 2% OINTMENT(VANICREAM) 70GM TUBE TOP SCH ×2 (08:04→20:47)
[2020-07-23] MEDS: CETIRIZINE (ZyrTEC) 10 MG TAB PO SCH (08:04)
[2020-07-23] MEDS: DIVALPROEX 250 MG TAB PO SCH ×3 (08:04→20:15)
[2020-07-23] MEDS: OLANZapine 10 MG TAB PO SCH (20:15)
[2020-07-23] MEDS: traZODone 50 MG TAB PO PRN (22:14)
[2020-07-24 06:30] VITALS: BP 144/88
[2020-07-24] MEDS: NICOTINE 21MG/24HR 1 EA TRANSDERMAL TD SCH (08:35)
[2020-07-24] MEDS: CETIRIZINE (ZyrTEC) 10 MG TAB PO SCH (08:35)
[2020-07-24] MEDS: DIMETHICONE 2% OINTMENT(VANICREAM) 70GM TUBE TOP SCH ×2 (08:36→20:43)
[2020-07-24] MEDS: DIVALPROEX 250 MG TAB PO SCH ×3 (08:36→20:01)
[2020-07-24 16:24] VITALS: BP 101/67
[2020-07-24] MEDS: OLANZapine 10 MG TAB PO SCH (20:02)
[2020-07-24] MEDS: traZODone 50 MG TAB PO PRN (20:41)
[2020-07-25 07:17] VITALS: BP 126/66
[2020-07-25] MEDS: NICOTINE 21MG/24HR 1 EA TRANSDERMAL TD SCH (08:11)
[2020-07-25] MEDS: CETIRIZINE (ZyrTEC) 10 MG TAB PO SCH (08:12)
[2020-07-25] MEDS: DIVALPROEX 250 MG TAB PO SCH ×3 (08:12→21:06)
[2020-07-25] MEDS: DIMETHICONE 2% OINTMENT(VANICREAM) 70GM TUBE TOP SCH ×2 (08:13→20:41)
--- NOTE | 2020-07-25 11:11 | MHIPNPDOC ---
[facility] Progress Note Progress Note DATE OF SERVICE: 07/25/20 HISTORY: 20-year-old female with history of bipolar disorder. I have changed her medication from Abilify to Zyprexa and will raise Zyprexa to 15 at bedtime De pakote level. Most recently is 88. VITAL SIGNS: See below. NEW TEST RESULTS:. Recent Depakote level. CURRENT MEDICATIONS: See below. MENTAL STATUS EXAMINATION: Patient is a 20-year old female, who is, continues to be hypomanic. Speech: Is mildly rapid. Language skills are and intact. Thought processes including:. As above. Thought content:, Focused on discharge and positive thinking. Abstract reasoning, and computation: Able to abstract. Description of associations:. No loose association. Description of abnormal or psychotic thoughts: Rapid thinking, rapid speech. Judgment:, Fair. Insight:, Fair. Orientation: 3. Recent and remote memory: Intact. Attention span and concentration: Mildly impaired. Language: Intact. Fund of knowledge: Full. Mood:, Elevated. Affect: Bright. DIAGNOSES: 1. Bipolar disorder. 2. None. 3. None. ASSESSMENT: 20-year-old female with bipolar disorder, improving MANAGEMENT PLAN: Concern about living situation expressed by me as she lives with her elderly grandmother. TIME SPENT:, 35 minutes. Vital Signs Vital Signs Date Time Temp Pulse Resp B/P (MAP) Pulse Ox O2 Delivery O2 Flow Rate FiO2 07/25/20 07:17 97.2 105 16 126/66 (86) 97 Room Air Laboratory Data 24H Labs Laboratory Tests 2 07/25/20 06:48: Valproic Acid (Depakene) Level 88.9 Current Medications Current Medications Medications (Trade) Dose Ordered Sig/Sanam Route PRN Reason Start Time Stop Time Status Last Admin Dose Admin Al Hydrox/Mg Hydrox/Simethicone (Mylanta) 30 ml Q4HP PRN PO HEARTBURN/INDIGESTION 07/08/20 15:30 07/08/20 18:08 DC Al Hydrox/Mg Hydrox/Simethicone (Mylanta) 30 ml Q4HP PRN PO HEARTBURN/INDIGESTION 07/08/20 19:00 07/16/20 10:54 Aripiprazole (AbiLIFY) 7.5 mg BID PO 07/14/20 21:00 07/22/20 10:53 DC 07/22/20 08:13 Cetirizine HCl (ZyrTEC) 10 mg DAILY PO 07/11/20 09:00 07/25/20 08:12 Cetylpyridinium Chloride (Cepacol) 2 rishabh Q2HP PRN PO SORE THROAT 07/10/20 12:30 07/13/20 16:11 Dimethicone (Vanicream Ointment) 1 dose BID TOP 07/12/20 21:00 07/22/20 08:16 Diphenhydramine HCl (Benadryl) 50 mg STAT STAT IM 07/08/20 19:43 07/08/20 19:50 DC 07/08/20 20:03 Divalproex Sodium (Depakote) 250 mg BID PO 07/13/20 09:00 07/13/20 15:48 DC 07/13/20 08:05 Divalproex Sodium (Depakote) 250 mg TID PO 07/18/20 21:00 07/25/20 08:12 Divalproex Sodium (Depakote) 500 mg BID PO 07/13/20 21:00 07/18/20 12:30 DC 07/18/20 08:10 Doxycycline Hyclate (Vibramycin) 100 mg BID PO 07/12/20 21:00 07/19/20 20:59 DC 07/19/20 08:13 Haloperidol (Haldol) 10 mg STAT STAT IM 07/08/20 19:43 07/08/20 19:50 DC 07/08/20 20:03 Ibuprofen (Advil) 400 mg Q6HP PRN PO PAIN 07/08/20 15:30 07/08/20 18:08 DC Ibuprofen (Advil) 400 mg Q6HP PRN PO PAIN 07/08/20 19:00 07/14/20 09:09 Lorazepam (Ativan) 1 mg Q4HP PRN PO ANXIETY/AGITATION 07/08/20 15:30 07/08/20 18:08 DC Lorazepam (Ativan) 1 mg Q4HP PRN PO ANXIETY/AGITATION 07/08/20 19:00 07/21/20 21:27 Lorazepam (Ativan) 2 mg STAT STAT IM 07/08/20 19:43 07/08/20 19:50 DC 07/08/20 20:03 Magnesium Hydroxide (Milk Of Magnesia) 30 ml DAILYPRN PRN PO CONSTIPATION 07/08/20 15:30 07/08/20 18:08 DC Magnesium Hydroxide (Milk Of Magnesia) 30 ml DAILYPRN PRN PO CONSTIPATION 07/08/20 19:00 07/17/20 14:35 Miscellaneous (Unresolved Clarification Entry) SEE LABEL COMMENTS DAILY XX 07/14/20 09:00 07/16/20 09:58 DC Miscellaneous (Unresolved Clarification Entry) SEE LABEL COMMENTS DAILY XX 07/17/20 09:00 07/18/20 12:31 DC Nicotine (Nicoderm Cq 21mg) 1 patch DAILY TD 07/08/20 09:00 07/25/20 08:11 Olanzapine (ZyPREXA ZYDIS) 5 mg DAILY PO 07/09/20 09:00 07/13/20 15:50 DC 07/13/20 08:05 Olanzapine (ZyPREXA ZYDIS) 5 mg Q4HP PRN PO AGITATION 07/08/20 19:00 07/19/20 20:00 Olanzapine (ZyPREXA ZYDIS) 10 mg BID PO 07/14/20 21:00 Cancel Olanzapine (ZyPREXA ZYDIS) 10 mg DAILY PO 07/14/20 09:00 07/14/20 15:52 DC 07/14/20 08:12 Olanzapine (ZyPREXA ZYDIS) 10 mg Q4HP PRN PO AGITATION 07/08/20 15:30 07/08/20 18:08 DC Olanzapine (ZyPREXA ZYDIS) 10 mg QHS PO 07/08/20 21:00 07/14/20 15:54 DC 07/13/20 20:15 Olanzapine (ZyPREXA) 10 mg QHS PO 07/22/20 21:00 07/24/20 20:02 Trazodone HCl (Desyrel) 50 mg QHSP PRN PO INSOMNIA 07/08/20 15:30 07/08/20 18:08 DC Trazodone HCl (Desyrel) 50 mg QHSP PRN PO INSOMNIA 07/08/20 19:00 07/24/20 20:41 Allergies Coded Allergies: No Known Allergies (Unverified , 09/07/14) GARCIA HUA MD Jul 25, 2020 11:11
[2020-07-25 18:22] VITALS: BP 143/81
[2020-07-25] MEDS: OLANZapine 10 MG TAB PO SCH (20:15)
[2020-07-26 06:00] VITALS: BP 137/62
[2020-07-26] MEDS: NICOTINE 21MG/24HR 1 EA TRANSDERMAL TD SCH (08:17)
[2020-07-26] MEDS: DIVALPROEX 250 MG TAB PO SCH ×3 (08:17→20:25)
[2020-07-26] MEDS: CETIRIZINE (ZyrTEC) 10 MG TAB PO SCH (08:17)
[2020-07-26] MEDS: DIMETHICONE 2% OINTMENT(VANICREAM) 70GM TUBE TOP SCH ×2 (08:18→20:25)
--- NOTE | 2020-07-26 15:12 | MHIPNPDOC ---
[facility] Progress Note Progress Note DATE OF SERVICE: 07/26/20 HISTORY: 20-year-old female living with her grandmother with a history of bipolar disorder and noncompliance. VITAL SIGNS: See below. NEW TEST RESULTS: Depakote levels being followed. CURRENT MEDICATIONS: See below. MENTAL STATUS EXAMINATION: Patient is a 20-year old female, who is, tearful and wanting to go home but not demonstrating hyperverbal and elevated mood today. Speech: Is normal. Language skills are intact. Thought processes including: Tearful and worried about discharge. Thought content:, Wanting to take care of her grandmother. Abstract reasoning, and computation: Able to abstract. Description of associations:. No loose association. Description of abnormal or psychotic thoughts:. No psychotic thought. Judgment:. Judgment improving. Insight: Insight good. Orientation: 3. Recent and remote memory: Intact. Attention span and concentration: Intact. Language:. No disturbance. Fund of knowledge: Full. Mood: Tearful, labile. Affect:, Congruent. DIAGNOSES: 1. Bipolar disorder. 2., Substance use. 3., Noncompliance. ASSESSMENT:, Much improved in her condition this 20-year-old female is beginning to be ready to be discharged MANAGEMENT PLAN: As above. TIME SPENT: 35 minutes. Vital Signs Vital Signs Date Time Temp Pulse Resp B/P (MAP) Pulse Ox O2 Delivery O2 Flow Rate FiO2 07/26/20 06:00 98.0 120 16 137/62 (87) 07/25/20 07:17 97 Room Air Current Medications Current Medications Medications (Trade) Dose Ordered Sig/Sanam Route PRN Reason Start Time Stop Time Status Last Admin Dose Admin Al Hydrox/Mg Hydrox/Simethicone (Mylanta) 30 ml Q4HP PRN PO HEARTBURN/INDIGESTION 07/08/20 15:30 07/08/20 18:08 DC Al Hydrox/Mg Hydrox/Simethicone (Mylanta) 30 ml Q4HP PRN PO HEARTBURN/INDIGESTION 07/08/20 19:00 07/16/20 10:54 Aripiprazole (AbiLIFY) 7.5 mg BID PO 07/14/20 21:00 07/22/20 10:53 DC 07/22/20 08:13 Cetirizine HCl (ZyrTEC) 10 mg DAILY PO 07/11/20 09:00 07/26/20 08:17 Cetylpyridinium Chloride (Cepacol) 2 rishabh Q2HP PRN PO SORE THROAT 07/10/20 12:30 07/13/20 16:11 Dimethicone (Vanicream Ointment) 1 dose BID TOP 07/12/20 21:00 07/22/20 08:16 Diphenhydramine HCl (Benadryl) 50 mg STAT STAT IM 07/08/20 19:43 07/08/20 19:50 DC 07/08/20 20:03 Divalproex Sodium (Depakote) 250 mg BID PO 07/13/20 09:00 07/13/20 15:48 DC 07/13/20 08:05 Divalproex Sodium (Depakote) 250 mg TID PO 07/18/20 21:00 07/26/20 08:17 Divalproex Sodium (Depakote) 500 mg BID PO 07/13/20 21:00 07/18/20 12:30 DC 07/18/20 08:10 Doxycycline Hyclate (Vibramycin) 100 mg BID PO 07/12/20 21:00 07/19/20 20:59 DC 07/19/20 08:13 Haloperidol (Haldol) 10 mg STAT STAT IM 07/08/20 19:43 07/08/20 19:50 DC 07/08/20 20:03 Ibuprofen (Advil) 400 mg Q6HP PRN PO PAIN 07/08/20 15:30 07/08/20 18:08 DC Ibuprofen (Advil) 400 mg Q6HP PRN PO PAIN 07/08/20 19:00 07/14/20 09:09 Lorazepam (Ativan) 1 mg Q4HP PRN PO ANXIETY/AGITATION 07/08/20 15:30 07/08/20 18:08 DC Lorazepam (Ativan) 1 mg Q4HP PRN PO ANXIETY/AGITATION 07/08/20 19:00 07/26/20 07:04 DC 07/21/20 21:27 Lorazepam (Ativan) 2 mg STAT STAT IM 07/08/20 19:43 07/08/20 19:50 DC 07/08/20 20:03 Magnesium Hydroxide (Milk Of Magnesia) 30 ml DAILYPRN PRN PO CONSTIPATION 07/08/20 15:30 07/08/20 18:08 DC Magnesium Hydroxide (Milk Of Magnesia) 30 ml DAILYPRN PRN PO CONSTIPATION 07/08/20 19:00 07/17/20 14:35 Miscellaneous (Unresolved Clarification Entry) SEE LABEL COMMENTS DAILY XX 07/14/20 09:00 07/16/20 09:58 DC Miscellaneous (Unresolved Clarification Entry) SEE LABEL COMMENTS DAILY XX 07/17/20 09:00 07/18/20 12:31 DC Nicotine (Nicoderm Cq 21mg) 1 patch DAILY TD 07/08/20 09:00 07/26/20 08:17 Olanzapine (ZyPREXA ZYDIS) 5 mg DAILY PO 07/09/20 09:00 07/13/20 15:50 DC 07/13/20 08:05 Olanzapine (ZyPREXA ZYDIS) 5 mg Q4HP PRN PO AGITATION 07/08/20 19:00 07/19/20 20:00 Olanzapine (ZyPREXA ZYDIS) 10 mg BID PO 07/14/20 21:00 Cancel Olanzapine (ZyPREXA ZYDIS) 10 mg DAILY PO 07/14/20 09:00 07/14/20 15:52 DC 07/14/20 08:12 Olanzapine (ZyPREXA ZYDIS) 10 mg Q4HP PRN PO AGITATION 07/08/20 15:30 07/08/20 18:08 DC Olanzapine (ZyPREXA ZYDIS) 10 mg QHS PO 07/08/20 21:00 07/14/20 15:54 DC 07/13/20 20:15 Olanzapine (ZyPREXA) 10 mg QHS PO 07/22/20 21:00 07/25/20 11:13 DC 07/24/20 20:02 Olanzapine (ZyPREXA) 15 mg QHS PO 07/25/20 21:00 07/25/20 20:15 Trazodone HCl (Desyrel) 50 mg QHSP PRN PO INSOMNIA 07/08/20 15:30 07/08/20 18:08 DC Trazodone HCl (Desyrel) 50 mg QHSP PRN PO INSOMNIA 07/08/20 19:00 07/24/20 20:41 Allergies Coded Allergies: No Known Allergies (Unverified , 09/07/14) GARCIA HUA MD Jul 26, 2020 15:12
[2020-07-26 18:58] VITALS: BP 146/87
[2020-07-26] MEDS: OLANZapine 10 MG TAB PO SCH (20:25)
[2020-07-27 06:00] VITALS: BP 120/55
[2020-07-27] MEDS: CETIRIZINE (ZyrTEC) 10 MG TAB PO SCH (08:01)
[2020-07-27] MEDS: DIVALPROEX 250 MG TAB PO SCH (08:01)
[2020-07-27] MEDS: DIMETHICONE 2% OINTMENT(VANICREAM) 70GM TUBE TOP SCH (08:02)
[2020-07-27] MEDS: NICOTINE 21MG/24HR 1 EA TRANSDERMAL TD SCH (08:02)
[2020-07-27] MEDS ORDERED: OLAN10TA2 PO (12:37)
[2020-07-27] MEDS ORDERED: DEPA250T32 PO (12:37)
--- NOTE | 2020-07-27 12:49 | MHDSPDOC ---
[facility] Discharge Summary Discharge Summary DATE OF ADMISSION: Jul 08, 2020 at 15:22 DATE OF DISCHARGE: July DISCHARGE DIAGNOSES: 1. Bipolar disorder REASON FOR ADMISSION: Patient found on straight without close CONSULTANTS INVOLVED: None TREATMENT AND PROGRESS ON THE UNIT :. I took over the case on July 20. Patient was found to be in manic state. Patient was changed from Abilify to Zyprexa and her Depakote levels were monitored HOSPITAL COURSE:. Patient improved in this last week and was discharged DISCHARGE ASSESSMENT:. Bipolar disorder, complicated by noncompliance MENTAL STATUS EXAMINATION ON DISCHARGE: Patient is a, 20-year old female, who is and euthymic state. Speech is, normal rate and rhythm. Language skills are, none Thought processes including: Euthymic with no delusions or hallucinations. Thought content: Preparing to go home, take care of her grandmother. Abstract reasoning, and computation: Able to abstract and compute. Description of associations: No loose associations. Description of abnormal or psychotic thoughts:. No abnormal or psychotic thought. At this time. Judgment:. Improved. Insight: Good. Orientation to 3. Recent and remote memory: Intact. Attention span and concentration:. Good. Language: No disturbance. Fund of knowledge:.full Mood: Euthymic. Affect:, Congruent. MEDICATIONS ON DISCHARGE: -, Zyprexa 15 for, saima. -, Depakote 250 3 times a day for, saima. PLAN/FOLLOWUP ARRANGEMENTS: [facility] outpatient counseling, medication, and Depakote levels. The amount of time spent in the coordination of care for this patient was approximately 35 minutes. Vital Signs/I&Os Vital Signs Date Time Temp Pulse Resp B/P (MAP) Pulse Ox O2 Delivery O2 Flow Rate FiO2 07/27/20 06:00 98.0 95 20 120/55 (76) 97 07/25/20 07:17 Room Air Medications Scheduled Divalproex Sodium (Depakote) 250 Mg Tablet.dr, 250 MG PO TID for Bipolar, #30 Olanzapine (Olanzapine) 10 Mg Tablet, 15 MG PO QHS for Bipolar, #14 Allergies Coded Allergies: No Known Allergies (Unverified , 09/07/14) GARCIA HUA MD Jul 27, 2020 12:49
== END 2020-07-27 13:52 | disposition home or self-care (01) | DRG 753 ==
LOC: M ED 23:42 → M PSY 07-08 15:22 → M ED 07-08 16:00
PROVIDERS: ADMIT Psychiatry & Neurology Psychiatry; ATTEND Psychiatry & Neurology Child & Adolescent Psychiatry
DX: F31.9 Bipolar disorder, unspecified (principal); F70 Mild intellectual disabilities; F12.90 Cannabis use, unspecified, uncomplicated; Z91.19 Patient's noncompliance with other medical treatment and regimen; L73.9 Follicular disorder, unspecified

== ENCOUNTER 2020-10-08 22:47 | Emergency (ER) | payer MEDICAID, OTHER ==
[~2020-10-08] VITALS: Ht 157.5 cm; Wt 81.4 kg
[~2020-10-08 22:47] MED LIST changes: +DEPA250T32 PO; +OLAN10TA2 PO; +OLAN15TA PO
[2020-10-08] MEDS ORDERED: DEPA250T2 PO (23:12)
[2020-10-08] MEDS ORDERED: DEPA500T2 PO (23:12)
[2020-10-08] MEDS ORDERED: CETI10CA2 PO (23:34)
[2020-10-08] MEDS ORDERED: PRED10TA2 PO (23:34)
[2020-10-08] MEDS ORDERED: VENTAER INH (23:34)
[2020-10-08] MEDS ORDERED: predniSONE 20 MG TAB PO ONE (23:35)
[2020-10-08 23:45] VITALS: BP 132/62
--- NOTE | 2020-10-09 10:07 | ECGEPIP ---
[facility] - ED Test Date: 2020-10-08 Pat Name: JUAN FORD Department: Room: - Gender: Female Banquet Cook: NATA : 2000 Requested By: SALOME Liz Order Number: [id number] Reading MD: Shukri Currie Measurements Intervals [place] Rate: 122 P: 61 [place]: 140 QRS: 44 QRSD: 76 T: -20 QT: 328 QTc: 467 Interpretive Statements Sinus tachycardia POOR R WAVE PROGRESSION RATE CHANGE COMPARED TO 02/06/19 Electronically Signed on 10-09-2020 10:07:24 EDT by Shukri Currie
== END 2020-10-08 23:55 | disposition home or self-care (01) ==
LOC: M ED 22:47
DX: J45.21 Mild intermittent asthma with (acute) exacerbation (principal); R00.0 Tachycardia, unspecified; F33.9 Major depressive disorder, recurrent, unspecified; F41.9 Anxiety disorder, unspecified; Z79.899 Other long term (current) drug therapy

== ENCOUNTER 2020-11-16 21:52 | Emergency (ER) | payer OTHER, MEDICAID ==
[~2020-11-16] VITALS: Ht 157.5 cm; Wt 114.7 kg
[~2020-11-16 21:52] MED LIST changes: +CETI10CA2 PO; +DEPA250T2 PO; +DEPA500T2 PO; +PRED10TA2 PO; +VENTAER INH
[2020-11-16 21:53] VITALS: BP 138/87
[2020-11-16] MEDS ORDERED: OLANZapine 5 MG TAB PO ONE (22:40)
[2020-11-16] MEDS ORDERED: DIVALPROEX 250MG *ER* TAB PO ONE (22:40)
[2020-11-16] MEDS ORDERED: OLAN15TA PO (22:43)
[2020-11-16] MEDS ORDERED: DEPA250T2 PO (22:43)
[2020-11-16] MEDS ORDERED: DEPA500T2 PO (22:43)
== END 2020-11-16 23:04 | disposition home or self-care (01) ==
LOC: M ED 21:52
DX: Z76.0 Encounter for issue of repeat prescription (principal); F41.9 Anxiety disorder, unspecified; F25.9 Schizoaffective disorder, unspecified; F17.200 Nicotine dependence, unspecified, uncomplicated; Z88.8 Allergy status to other drugs, medicaments and biological substances; Z79.899 Other long term (current) drug therapy

== ENCOUNTER 2022-09-11 23:07 | Emergency (ER) | payer MEDICAID, OTHER ==
[~2022-09-11] VITALS: Ht 157.5 cm; Wt 100.9 kg
[~2022-09-11 23:07] MED LIST changes: -OLAN10TA2 PO; -OLAN15TA PO; +OLAN15TA13 PO; +OLAN1TAB20 PO
[2022-09-11 23:20] VITALS: BP 119/62
== END 2022-09-12 01:39 | disposition left against medical advice (07) ==
LOC: M ED 23:07 → EDBD 23:07 → M ED 09-12 01:39
DX: Z53.21 Procedure and treatment not carried out due to patient leaving prior to being seen by health care provider (principal)

== ENCOUNTER 2022-09-24 18:17 | Inpatient (IN) | payer MEDICAID, OTHER ==
[~2022-09-24] VITALS: Ht 157.5 cm; Wt 100.9 kg
[2022-09-24 19:34] LABS: HEMATOCRIT 44.2 % (36.0-47.0); HEMOGLOBIN 14.9 g/dl (12.0-15.5); MEAN CORPUSCULAR HEMOGLOBIN 30.4 pg (27.0-33.0); MEAN CORPUSCULAR HGB CONC 33.7 g/dl (32.0-36.5); MEAN CORPUSCULAR VOLUME 90.2 fl (80.0-96.0); PLATELET COUNT, AUTOMATED 295 10^3/uL (150-450); WHITE BLOOD COUNT 11.6 10^3/uL (4.0-10.0)
[2022-09-24 19:54] LABS: ETHYL ALCOHOL (ETHANOL) < 0.003 % (0.000-0.010)
[2022-09-24 19:56] LABS: ACETAMINOPHEN LEVEL < 2.0 UG/ML (10.0-20.0); ALBUMIN 4.5 G/DL (3.2-5.2); ALKALINE PHOSPHATASE 104 U/L (46-116); ALT/SGPT 36 U/L (7.0-40); AST/SGOT 49 U/L (<34); BILIRUBIN,DIRECT 0.3 MG/DL (<0.4); BILIRUBIN,TOTAL 0.6 MG/DL (0.3-1.2); BLOOD UREA NITROGEN 10 MG/DL (9-23); CALCIUM LEVEL 10.1 MG/DL (8.5-10.1); CARBON DIOXIDE LEVEL 22 MMOL/L (20-31); CHLORIDE LEVEL 102 MMOL/L (98-107); CREATININE FOR GFR 0.92 MG/DL (0.55-1.30); GLOMERULAR FILTRATION RATE > 60.0 (>60); GLUCOSE, FASTING 92 MG/DL (60-100); POTASSIUM SERUM 4.4 MMOL/L (3.5-5.1); SALICYLATE LEVEL < 3.0 MG/DL (<30); SODIUM LEVEL 138 MMOL/L (136-145); TOTAL PROTEIN 8.4 G/DL (5.7-8.2)
[2022-09-24 19:58] LABS: THYROID STIMULATING HORMONE 0.414 uIU/ML (0.55-4.78)
[2022-09-24 20:01] LABS: HCG, SERUM QUALITATIVE NEGATIVE (NEGATIVE)
[2022-09-24 20:04] LABS: METHADONE URINE NEGATIVE (NEGATIVE); PHENCYCLIDINE URINE NEGATIVE (NEGATIVE)
[2022-09-24 20:05] LABS: AMPHETAMINES LEVEL URINE NEGATIVE (NEGATIVE); BARBITURATES URINE NEGATIVE (NEGATIVE); BENZODIAZEPINES URINE NEGATIVE (NEGATIVE); COCAINE METABOLITE URINE NEGATIVE (NEGATIVE); OPIATES URINE NEGATIVE (NEGATIVE)
[2022-09-24 20:08] LABS: CANNABINOIDS URINE POSITIVE (NEGATIVE)
[2022-09-24] MEDS ORDERED: HOME MED LIST COMPLETE! XX SCH (20:30)
[2022-09-25] MEDS: DIVALPROEX 250MG *ER* TAB PO SCH ×2 (00:40→21:00)
[2022-09-25] MEDS: OLANZapine 5 MG TAB PO SCH ×2 (01:01→21:00)
[2022-09-25] MEDS: NICOTINE 21MG/24HR 1 EA TRANSDERMAL TD PRN (01:02)
[2022-09-25 10:52] LABS: THYROXINE (T4) 11.2 UG/DL (4.5-10.9)
[2022-09-25 10:53] LABS: FREE THYROXINE INDEX 5.1 % (1.3-4.8); T UPTAKE 45.1 % (22.5-37.0)
[2022-09-25 15:16] LABS: THYROID STIMULATING HORMONE 0.276 uIU/ML (0.55-4.78); THYROXINE (T4) 11.3 UG/DL (4.5-10.9)
[2022-09-25 15:17] LABS: FREE THYROXINE INDEX 4.9 % (1.3-4.8); T UPTAKE 43.6 % (22.5-37.0)
[2022-09-25 16:33] VITALS: BP 98/51
[2022-09-25 19:27] LABS: FREE T3 3.1 PG/ML (2.3-4.2); FREE T4 1.37 NG/DL (0.89-1.76)
[2022-09-25] MEDS ORDERED: OLANZapine 5 MG TAB PO SCH (21:00)
[2022-09-25] MEDS ORDERED: DIVALPROEX 250MG *ER* TAB PO SCH (21:00)
[2022-09-26] VITALS (7 sets, daily range): BP systolic 143–195; BP diastolic 70–95
[2022-09-26] MEDS ORDERED: HALOPERIDOL 5MG/ML 1ML VIAL IM ONE (09:00)
[2022-09-26] MEDS ORDERED: diphenhydrAMINE 50MG/ML VIAL IM ONE (09:00)
[2022-09-26] MEDS ORDERED: LORazepam 2 MG/ML 1ML VIAL IM ONE (09:00)
[2022-09-26] MEDS: DIVALPROEX 250MG *ER* TAB PO SCH (21:20)
[2022-09-26] MEDS: OLANZapine 5 MG TAB PO SCH (21:20)
[2022-09-27 18:02] VITALS: BP 146/76
[2022-09-27] MEDS: DIVALPROEX 250MG *ER* TAB PO SCH (20:27)
[2022-09-27] MEDS: OLANZapine 5 MG TAB PO SCH (20:27)
[2022-09-28 06:38] VITALS: BP 130/92
[2022-09-28] MEDS: OLANZapine ORAL DISINTEGRATING TAB 5MG PO PRN (14:23)
[2022-09-28 16:10] VITALS: BP 132/88
[2022-09-28] MEDS: OLANZapine 5 MG TAB PO SCH (21:03)
[2022-09-28] MEDS: DIVALPROEX 250MG *ER* TAB PO SCH (21:04)
[2022-09-28] MEDS: traZODone 50 MG TAB PO PRN (23:20)
[2022-09-28] MEDS: NICOTINE 21MG/24HR 1 EA TRANSDERMAL TD PRN (23:20)
[2022-09-29 16:07] VITALS: BP 135/81
[2022-09-29] MEDS: OLANZapine ORAL DISINTEGRATING TAB 5MG PO PRN (16:57)
[2022-09-29] MEDS: DIVALPROEX 250MG *ER* TAB PO SCH (20:20)
[2022-09-29] MEDS: OLANZapine 5 MG TAB PO SCH (20:20)
[2022-09-30] MEDS: OLANZapine ORAL DISINTEGRATING TAB 5MG PO PRN ×2 (06:34→14:17)
[2022-09-30] MEDS: NICOTINE 21MG/24HR 1 EA TRANSDERMAL TD PRN (11:56)
[2022-09-30 15:39] VITALS: BP 142/83
[2022-09-30] MEDS: MAALOX 30 ML SUSP *UDC PO PRN (19:47)
[2022-09-30] MEDS: OLANZapine 5 MG TAB PO SCH (20:20)
[2022-09-30] MEDS: DIVALPROEX 500MG *ER* TAB PO SCH (20:20)
[2022-09-30] MEDS: traZODone 50 MG TAB PO PRN (20:22)
[2022-10-01 06:22] VITALS: BP 128/93
[2022-10-01] MEDS: NICOTINE 21MG/24HR 1 EA TRANSDERMAL TD PRN (08:29)
[2022-10-01] MEDS: OLANZapine ORAL DISINTEGRATING TAB 5MG PO PRN ×3 (08:29→19:43)
[2022-10-01 18:50] VITALS: BP 127/77
[2022-10-01] MEDS: MAALOX 30 ML SUSP *UDC PO PRN (19:43)
[2022-10-01] MEDS: DIVALPROEX 500MG *ER* TAB PO SCH (20:17)
[2022-10-01] MEDS: OLANZapine 5 MG TAB PO SCH (20:17)
[2022-10-01] MEDS: traZODone 50 MG TAB PO PRN (20:17)
[2022-10-02 06:20] VITALS: BP 134/85
[2022-10-02] MEDS: OLANZapine ORAL DISINTEGRATING TAB 5MG PO PRN ×2 (06:39→11:37)
[2022-10-02] MEDS: NICOTINE 21MG/24HR 1 EA TRANSDERMAL TD PRN (08:54)
[2022-10-02] MEDS: MAALOX 30 ML SUSP *UDC PO PRN (08:54)
[2022-10-02 17:07] VITALS: BP 103/51
[2022-10-02] MEDS: MOM 30ML SUSPENSION UDC PO PRN (17:52)
[2022-10-02] MEDS: ACETAMINOPHEN TAB 650MG DOSE (2X325MG) PO PRN (19:46)
[2022-10-02] MEDS: DIVALPROEX 500MG *ER* TAB PO SCH (20:54)
[2022-10-02] MEDS: traZODone 50 MG TAB PO PRN (20:54)
[2022-10-02] MEDS: OLANZapine 5 MG TAB PO SCH (20:54)
[2022-10-03 06:00] VITALS: BP 140/78
[2022-10-03] MEDS: OLANZapine ORAL DISINTEGRATING TAB 5MG PO PRN (08:47)
[2022-10-03] MEDS: NICOTINE 21MG/24HR 1 EA TRANSDERMAL TD PRN (08:50)
[2022-10-03] MEDS: MOM 30ML SUSPENSION UDC PO PRN (17:46)
[2022-10-03] MEDS: IBUPROFEN 400MG TAB PO PRN (17:50)
[2022-10-03 18:16] VITALS: BP 140/80
[2022-10-03] MEDS: traZODone 50 MG TAB PO PRN (19:56)
[2022-10-03] MEDS: DIVALPROEX 500MG *ER* TAB PO SCH (19:56)
[2022-10-03] MEDS: OLANZapine 5 MG TAB PO SCH (19:56)
[2022-10-04] MEDS: MOM 30ML SUSPENSION UDC PO PRN (14:44)
[2022-10-04] MEDS: traZODone 50 MG TAB PO PRN (19:56)
[2022-10-04] MEDS: OLANZapine 5 MG TAB PO SCH (19:56)
[2022-10-04] MEDS: DIVALPROEX 250MG *ER* TAB PO SCH (19:56)
[2022-10-04] MEDS: OLANZapine ORAL DISINTEGRATING TAB 5MG PO PRN (20:59)
[2022-10-05] MEDS: NICOTINE 21MG/24HR 1 EA TRANSDERMAL TD PRN (07:42)
[2022-10-05] MEDS: IBUPROFEN 400MG TAB PO PRN ×2 (09:47→18:17)
[2022-10-05] MEDS: OLANZapine ORAL DISINTEGRATING TAB 5MG PO PRN ×2 (12:29→15:25)
[2022-10-05] MEDS: MOM 30ML SUSPENSION UDC PO PRN (15:25)
[2022-10-05] MEDS: ACETAMINOPHEN TAB 650MG DOSE (2X325MG) PO PRN (15:26)
[2022-10-05 18:03] VITALS: BP 130/68
[2022-10-05] MEDS: DIVALPROEX 250MG *ER* TAB PO SCH (20:57)
[2022-10-05] MEDS: OLANZapine 5 MG TAB PO SCH (20:57)
[2022-10-05] MEDS: traZODone 50 MG TAB PO PRN (20:57)
[2022-10-06 05:54] VITALS: BP 122/55
[2022-10-06] MEDS: IBUPROFEN 400MG TAB PO PRN ×2 (06:50→14:32)
[2022-10-06] MEDS: OLANZapine ORAL DISINTEGRATING TAB 5MG PO PRN ×2 (06:52→14:30)
[2022-10-06] MEDS: MAALOX 30 ML SUSP *UDC PO PRN ×2 (07:44→17:25)
[2022-10-06] MEDS: NICOTINE 21MG/24HR 1 EA TRANSDERMAL TD PRN (14:30)
[2022-10-06] MEDS: ACETAMINOPHEN TAB 650MG DOSE (2X325MG) PO PRN (17:26)
[2022-10-06 18:20] VITALS: BP 130/78
[2022-10-06] MEDS: DIVALPROEX 250MG *ER* TAB PO SCH (21:22)
[2022-10-06] MEDS: traZODone 50 MG TAB PO PRN (21:22)
[2022-10-06] MEDS: OLANZapine 5 MG TAB PO SCH (21:22)
[2022-10-07] MEDS: MOM 30ML SUSPENSION UDC PO PRN (05:57)
[2022-10-07] MEDS: OLANZapine ORAL DISINTEGRATING TAB 5MG PO PRN ×3 (05:57→20:13)
[2022-10-07 05:58] VITALS: BP 125/61
[2022-10-07] MEDS: NICOTINE 21MG/24HR 1 EA TRANSDERMAL TD PRN (09:59)
[2022-10-07 17:26] VITALS: BP 138/73
[2022-10-07] MEDS: traZODone 50 MG TAB PO PRN (20:13)
[2022-10-07] MEDS: OLANZapine 5 MG TAB PO SCH (20:13)
[2022-10-07] MEDS: DIVALPROEX 250MG *ER* TAB PO SCH (20:13)
[2022-10-08 06:00] VITALS: BP 137/87
[2022-10-08] MEDS: ACETAMINOPHEN TAB 650MG DOSE (2X325MG) PO PRN (06:37)
[2022-10-08] MEDS ORDERED: DEPA250T2 PO (12:54)
[2022-10-08] MEDS ORDERED: TRAZ-252 PO (12:54)
[2022-10-08] MEDS ORDERED: NICO21PAT TD (12:54)
[2022-10-08] MEDS ORDERED: OLAN1TAB16 PO (12:54)
== END 2022-10-08 13:35 | disposition home or self-care (01) | DRG 750 ==
LOC: M ED 18:17 → M ED INP 21:54 → M PSY 09-25 00:21
PROVIDERS: ADMIT Student in an Organized Health Care Education/Training Program; ATTEND Student in an Organized Health Care Education/Training Program
DX: F25.0 Schizoaffective disorder, bipolar type (principal); F12.90 Cannabis use, unspecified, uncomplicated; E05.90 Thyrotoxicosis, unspecified without thyrotoxic crisis or storm; R45.851 Suicidal ideations; F70 Mild intellectual disabilities; F17.210 Nicotine dependence, cigarettes, uncomplicated

== ENCOUNTER 2022-11-01 12:56 | Emergency (ER) | payer MEDICAID, SELFPAY ==
[~2022-11-01] VITALS: Ht 157.5 cm; Wt 91.0 kg
[2022-11-01 12:56] VITALS: BP 16/57
[~2022-11-01 12:56] MED LIST changes: +NICO21PAT TD; +OLAN1TAB16 PO; +TRAZ-252 PO
[2022-11-01] MEDS ORDERED: NICO1PAT15 TD (23:33)
[2022-11-01] MEDS ORDERED: TRAZ-186 PO (23:33)
[2022-11-01] MEDS ORDERED: DIVA250T7 PO (23:33)
[2022-11-01] MEDS ORDERED: DIVA500T9 PO (23:33)
== END 2022-11-01 14:13 | disposition left against medical advice (07) ==
LOC: M ED 12:56
DX: Z53.21 Procedure and treatment not carried out due to patient leaving prior to being seen by health care provider (principal)

== ENCOUNTER 2022-11-01 15:24 | Inpatient (IN) | payer MEDICAID, OTHER, SELFPAY ==
[~2022-11-01] VITALS: Ht 160 cm; Wt 94.2 kg
[2022-11-01 16:32] LABS: HEMATOCRIT 41.6 % (36.0-47.0); HEMOGLOBIN 13.3 g/dl (12.0-15.5); MEAN CORPUSCULAR HEMOGLOBIN 30.5 pg (27.0-33.0); MEAN CORPUSCULAR VOLUME 95.4 fl (80.0-96.0); PLATELET COUNT, AUTOMATED 306 10^3/uL (150-450); RED BLOOD COUNT 4.36 10^6/uL (4.00-5.40)
[2022-11-01 17:01] LABS: AMPHETAMINES LEVEL URINE NEGATIVE (NEGATIVE)
[2022-11-01 17:02] LABS: BARBITURATES URINE NEGATIVE (NEGATIVE); BENZODIAZEPINES URINE NEGATIVE (NEGATIVE); COCAINE METABOLITE URINE NEGATIVE (NEGATIVE); METHADONE URINE NEGATIVE (NEGATIVE); OPIATES URINE NEGATIVE (NEGATIVE); PHENCYCLIDINE URINE NEGATIVE (NEGATIVE)
[2022-11-01 17:04] LABS: CANNABINOIDS URINE POSITIVE (NEGATIVE); ETHYL ALCOHOL (ETHANOL) < 0.003 % (0.000-0.010)
[2022-11-01 17:05] LABS: SALICYLATE LEVEL < 3.0 MG/DL (<30)
[2022-11-01 17:06] LABS: ACETAMINOPHEN LEVEL < 2.0 UG/ML (10.0-20.0)
[2022-11-01 17:07] LABS: THYROID STIMULATING HORMONE 0.536 uIU/ML (0.55-4.78)
[2022-11-01 17:24] LABS: ALBUMIN 4.1 G/DL (3.2-5.2); ALKALINE PHOSPHATASE 85 U/L (46-116); ALT/SGPT 1903 U/L (7.0-40); AST/SGOT 73 U/L (<34); BILIRUBIN,DIRECT 0.2 MG/DL (<0.4); BILIRUBIN,TOTAL 0.7 MG/DL (0.3-1.2); BLOOD UREA NITROGEN 6 MG/DL (9-23); CARBON DIOXIDE LEVEL 25 MMOL/L (20-31); CHLORIDE LEVEL 107 MMOL/L (98-107); CREATININE FOR GFR 0.77 MG/DL (0.55-1.30); GLOMERULAR FILTRATION RATE > 60.0 (>60); GLUCOSE, FASTING 87 MG/DL (60-100); POTASSIUM SERUM 3.5 MMOL/L (3.5-5.1); SODIUM LEVEL 141 MMOL/L (136-145); TOTAL PROTEIN 7.5 G/DL (5.7-8.2)
[2022-11-01 18:40] LABS: HEPATITIS B SURFACE ANTIGEN NEGATIVE (NEGATIVE)
[2022-11-01 19:00] LABS: HEPATITIS B CORE ANTIBODY IGM NEGATIVE (NEGATIVE)
[2022-11-01 19:01] LABS: HEPATITIS C VIRUS ABY INDEX 0.1 INDEX (<0.8)
[2022-11-01] MEDS: THIAMINE 100 MG TAB PO SCH (21:00)
[2022-11-01 21:59] LABS: ALBUMIN 3.7 G/DL (3.2-5.2); ALKALINE PHOSPHATASE 76 U/L (46-116); ALT/SGPT 1646 U/L (7.0-40); AST/SGOT 60 U/L (<34); BILIRUBIN,TOTAL 0.6 MG/DL (0.3-1.2); BLOOD UREA NITROGEN 8 MG/DL (9-23); CALCIUM LEVEL 8.7 MG/DL (8.5-10.1); CARBON DIOXIDE LEVEL 28 MMOL/L (20-31); CHLORIDE LEVEL 107 MMOL/L (98-107); CREATININE FOR GFR 0.77 MG/DL (0.55-1.30); GLOMERULAR FILTRATION RATE > 60.0 (>60); GLUCOSE, FASTING 104 MG/DL (60-100); POTASSIUM SERUM 3.4 MMOL/L (3.5-5.1); SODIUM LEVEL 143 MMOL/L (136-145); TOTAL PROTEIN 6.8 G/DL (5.7-8.2)
[2022-11-01] MEDS ORDERED: NICOTINE 21MG/24HR 1 EA TRANSDERMAL TD PRN (22:20)
[2022-11-01] MEDS ORDERED: MAALOX 30 ML SUSP *UDC PO PRN (22:20)
[2022-11-01] MEDS ORDERED: MOM 30ML SUSPENSION UDC PO PRN (22:20)
[2022-11-01] MEDS ORDERED: LORazepam 2 MG TAB PO PRN (22:20)
[2022-11-01] MEDS ORDERED: DIVA500T9 PO (23:33)
[2022-11-01] MEDS ORDERED: TRAZ-186 PO (23:33)
[2022-11-01] MEDS ORDERED: NICO1PAT15 TD (23:33)
[2022-11-01] MEDS ORDERED: DIVA250T7 PO (23:33)
[2022-11-01] MEDS ORDERED: HOME MED LIST COMPLETE! XX SCH (23:35)
[2022-11-02 00:57] VITALS: BP 114/65
[2022-11-02 01:00] VITALS: BP 114/65; TEMP 98.2; O2SAT 98
[2022-11-02 06:38] VITALS: BP 142/78; TEMP 97
[2022-11-02 06:40] VITALS: BP 142/78
[2022-11-02] MEDS: MULTIVITAMINS/MINERALS THERAP 1 TAB PO SCH (09:00)
[2022-11-02] MEDS: DIVALPROEX 500MG *ER* TAB PO SCH ×2 (09:00→21:00)
[2022-11-02] MEDS: FOLIC ACID 1MG TAB PO SCH (09:00)
[2022-11-02] MEDS: THIAMINE 100 MG TAB PO SCH ×2 (09:00→21:00)
[2022-11-02 09:53] LABS: FREE T3 3.8 PG/ML (2.3-4.2)
[2022-11-02 09:54] LABS: FREE T4 1.27 NG/DL (0.89-1.76)
[2022-11-02 14:05] VITALS: BP 135/60
[2022-11-02] MEDS: OLANZapine 10 MG TAB PO SCH (21:00)
[2022-11-02 22:00] VITALS: BP 118/59
[2022-11-03] MEDS: THIAMINE 100 MG TAB PO SCH ×3 (09:00→20:05)
[2022-11-03] MEDS: MULTIVITAMINS/MINERALS THERAP 1 TAB PO SCH ×2 (09:00→14:45)
[2022-11-03] MEDS: DIVALPROEX 500MG *ER* TAB PO SCH ×3 (09:00→20:05)
[2022-11-03] MEDS: FOLIC ACID 1MG TAB PO SCH ×2 (09:00→14:45)
[2022-11-03 14:24] VITALS: BP 132/71
[2022-11-03 18:00] VITALS: BP 137/68; TEMP 96.8
[2022-11-03] MEDS: traZODone 50 MG TAB PO PRN (20:05)
[2022-11-03] MEDS: OLANZapine 10 MG TAB PO SCH (20:05)
[2022-11-03 22:00] VITALS: BP 106/57
[2022-11-04 06:00] VITALS: BP 109/56; TEMP 97.8; O2SAT 97
[2022-11-04] MEDS: FOLIC ACID 1MG TAB PO SCH (09:14)
[2022-11-04] MEDS: MULTIVITAMINS/MINERALS THERAP 1 TAB PO SCH (09:14)
[2022-11-04] MEDS: THIAMINE 100 MG TAB PO SCH (09:14)
[2022-11-04] MEDS: DIVALPROEX 500MG *ER* TAB PO SCH ×2 (09:15→20:15)
[2022-11-04 14:00] VITALS: BP 142/80
[2022-11-04 18:00] VITALS: BP 129/67; TEMP 98.2
[2022-11-04] MEDS: OLANZapine 10 MG TAB PO SCH (20:14)
[2022-11-05] MEDS: diphenhydrAMINE 25MG CAP PO PRN ×2 (02:34→22:42)
[2022-11-05] MEDS: traZODone 50 MG TAB PO PRN ×2 (02:34→22:42)
[2022-11-05 06:02] VITALS: BP 119/70; TEMP 98.4; O2SAT 100
[2022-11-05] MEDS: DIVALPROEX 500MG *ER* TAB PO SCH ×2 (08:28→19:57)
[2022-11-05 14:24] VITALS: BP 128/78; TEMP 98.2
[2022-11-05] MEDS: NICOTINE POLACRILEX 2 MG GUM PO PRN (19:56)
[2022-11-05] MEDS: OLANZapine 10 MG TAB PO SCH (19:56)
[2022-11-06 06:55] VITALS: BP 129/72; TEMP 98.1; O2SAT 99
[2022-11-06] MEDS: DIVALPROEX 500MG *ER* TAB PO SCH ×2 (07:44→20:17)
[2022-11-06] MEDS: NICOTINE POLACRILEX 2 MG GUM PO PRN ×2 (07:44→12:46)
[2022-11-06] MEDS ORDERED: BENZTROPINE 0.5 MG TAB PO PRN (10:35)
[2022-11-06] MEDS: PALIPERIDONE 3MG ER TAB (INVEGA) PO SCH (10:59)
[2022-11-06] MEDS: CHLORASEPTIC SPRAY MT PRN (12:42)
[2022-11-06 16:09] VITALS: BP 122/78; TEMP 98.5; O2SAT 100
[2022-11-06] MEDS: diphenhydrAMINE 25MG CAP PO PRN (20:17)
[2022-11-06] MEDS: OLANZapine 5 MG TAB PO SCH (20:17)
[2022-11-06] MEDS: traZODone 50 MG TAB PO PRN (20:17)
[2022-11-07] MEDS: CHLORASEPTIC SPRAY MT PRN (05:29)
[2022-11-07 06:20] VITALS: BP 130/70; TEMP 97.5; O2SAT 95
[2022-11-07] MEDS: PALIPERIDONE 3MG ER TAB (INVEGA) PO SCH (07:24)
[2022-11-07] MEDS: DIVALPROEX 500MG *ER* TAB PO SCH ×2 (07:24→20:28)
[2022-11-07] MEDS: NICOTINE POLACRILEX 2 MG GUM PO PRN ×3 (08:43→19:26)
[2022-11-07 16:03] VITALS: BP 114/64; TEMP 98.8; O2SAT 99
[2022-11-07] MEDS: OLANZapine 5 MG TAB PO SCH (20:28)
[2022-11-07] MEDS: ACETAMINOPHEN TAB 650MG DOSE (2X325MG) PO PRN (20:47)
[2022-11-08] MEDS: CHLORASEPTIC SPRAY MT PRN ×2 (06:33→18:33)
[2022-11-08 06:37] VITALS: BP 110/53; TEMP 97.7; O2SAT 100
[2022-11-08] MEDS: NICOTINE POLACRILEX 2 MG GUM PO PRN ×4 (06:47→20:22)
[2022-11-08] MEDS: IBUPROFEN 400MG TAB PO PRN (07:02)
[2022-11-08] MEDS: DIVALPROEX 500MG *ER* TAB PO SCH ×2 (08:11→20:23)
[2022-11-08] MEDS: PALIPERIDONE 3MG ER TAB (INVEGA) PO SCH ×2 (08:11→20:23)
[2022-11-08 18:32] VITALS: BP 121/64; TEMP 97.4; O2SAT 97
[2022-11-08] MEDS: ACETAMINOPHEN TAB 650MG DOSE (2X325MG) PO PRN (18:33)
[2022-11-09] MEDS: CHLORASEPTIC SPRAY MT PRN ×2 (03:53→20:14)
[2022-11-09] MEDS: IBUPROFEN 400MG TAB PO PRN ×2 (03:54→21:58)
[2022-11-09] MEDS: NICOTINE POLACRILEX 2 MG GUM PO PRN ×3 (08:00→18:01)
[2022-11-09] MEDS: DIVALPROEX 500MG *ER* TAB PO SCH ×2 (08:00→20:14)
[2022-11-09] MEDS: PALIPERIDONE 3MG ER TAB (INVEGA) PO SCH ×2 (08:00→20:14)
[2022-11-09 16:54] VITALS: BP 129/81; TEMP 97.5; O2SAT 100
[2022-11-10 06:34] VITALS: BP 120/78; TEMP 97.6; O2SAT 97
[2022-11-10] MEDS: NICOTINE POLACRILEX 2 MG GUM PO PRN ×3 (07:47→17:40)
[2022-11-10] MEDS: DIVALPROEX 500MG *ER* TAB PO SCH ×2 (07:48→20:00)
[2022-11-10] MEDS: PALIPERIDONE 3MG ER TAB (INVEGA) PO SCH ×2 (07:48→20:00)
[2022-11-10 16:14] VITALS: BP 125/68; TEMP 97.8
[2022-11-10] MEDS: diphenhydrAMINE 25MG CAP PO PRN (22:40)
[2022-11-10] MEDS: IBUPROFEN 400MG TAB PO PRN (22:40)
[2022-11-10] MEDS: traZODone 50 MG TAB PO PRN (22:40)
[2022-11-11 06:43] VITALS: BP 128/62; TEMP 98.2; O2SAT 95
[2022-11-11] MEDS: DIVALPROEX 500MG *ER* TAB PO SCH ×2 (08:36→20:22)
[2022-11-11] MEDS: PALIPERIDONE 3MG ER TAB (INVEGA) PO SCH ×2 (08:36→20:22)
[2022-11-11] MEDS: NICOTINE POLACRILEX 2 MG GUM PO PRN ×3 (08:49→18:09)
[2022-11-11 12:30] LABS: BASO % 0.2 % (0.0-1.0); EOS # 0.1 10^3/uL (0.0-0.5); EOS % 0.7 % (0.0-3.0); HEMATOCRIT 40.1 % (36.0-47.0); HEMOGLOBIN 12.4 g/dl (12.0-15.5); LYMPH # 2.3 10^3/uL (1.5-5.0); LYMPH % 22.8 % (24.0-44.0); MEAN CORPUSCULAR HEMOGLOBIN 30.3 pg (27.0-33.0); MEAN CORPUSCULAR HGB CONC 30.9 g/dl (32.0-36.5); MONO # 0.9 10^3/uL (0.0-0.8); MONO % 9.1 % (2.0-8.0); NEUTROPHILS # 6.8 10^3/uL (1.5-8.5); NEUTROPHILS % 66.9 % (36.0-66.0); PLATELET COUNT, AUTOMATED 247 10^3/uL (150-450); RED BLOOD COUNT 4.09 10^6/uL (4.00-5.40); WHITE BLOOD COUNT 10.2 10^3/uL (4.0-10.0)
[2022-11-11] MEDS: DOXYCYCLINE HYCLATE 100MG TABLET PO SCH ×2 (12:32→20:22)
[2022-11-11 12:55] LABS: ALBUMIN 3.4 G/DL (3.2-5.2); ALKALINE PHOSPHATASE 88 U/L (46-116); ALT/SGPT 145 U/L (7.0-40); AST/SGOT 15 U/L (<34); BILIRUBIN,TOTAL 0.4 MG/DL (0.3-1.2); BLOOD UREA NITROGEN 15 MG/DL (9-23); CALCIUM LEVEL 8.9 MG/DL (8.5-10.1); CARBON DIOXIDE LEVEL 25 MMOL/L (20-31); CHLORIDE LEVEL 106 MMOL/L (98-107); CREATININE FOR GFR 0.81 MG/DL (0.55-1.30); GLOMERULAR FILTRATION RATE > 60.0 (>60); GLUCOSE, FASTING 100 MG/DL (60-100); POTASSIUM SERUM 4.5 MMOL/L (3.5-5.1); SODIUM LEVEL 138 MMOL/L (136-145); TOTAL PROTEIN 7.1 G/DL (5.7-8.2)
[2022-11-11 16:12] VITALS: BP 102/58; TEMP 98.1; O2SAT 100
[2022-11-11] MEDS: diphenhydrAMINE 25MG CAP PO PRN (21:55)
[2022-11-11] MEDS: traZODone 50 MG TAB PO PRN (21:55)
[2022-11-12 06:31] VITALS: BP 140/71; TEMP 97.9; O2SAT 97
[2022-11-12] MEDS: NICOTINE POLACRILEX 2 MG GUM PO PRN ×3 (06:51→17:15)
[2022-11-12] MEDS: PALIPERIDONE 3MG ER TAB (INVEGA) PO SCH ×2 (08:04→19:57)
[2022-11-12] MEDS: DOXYCYCLINE HYCLATE 100MG TABLET PO SCH ×2 (08:05→19:57)
[2022-11-12] MEDS: DIVALPROEX 500MG *ER* TAB PO SCH (08:05)
[2022-11-12] MEDS ORDERED: PALIPERIDONE PAL 234MG/1.5ML INJ (INVEGA)(FREE PSY INPT ONLY) IM ONE (09:00)
[2022-11-12 18:00] VITALS: BP 137/91; TEMP 96.7; O2SAT 98
[2022-11-12] MEDS: DIVALPROEX 250MG *ER* TAB PO SCH (19:57)
[2022-11-12] MEDS: diphenhydrAMINE 25MG CAP PO PRN (20:18)
[2022-11-12] MEDS: traZODone 50 MG TAB PO PRN (20:19)
[2022-11-13 05:56] VITALS: BP 107/55; TEMP 98.3; O2SAT 97
[2022-11-13] MEDS: NICOTINE POLACRILEX 2 MG GUM PO PRN ×3 (08:08→18:05)
[2022-11-13] MEDS: PALIPERIDONE 3MG ER TAB (INVEGA) PO SCH ×2 (08:08→20:18)
[2022-11-13] MEDS: DOXYCYCLINE HYCLATE 100MG TABLET PO SCH ×2 (08:08→20:19)
[2022-11-13 17:46] VITALS: BP 142/65; TEMP 98
[2022-11-13] MEDS: DIVALPROEX 250MG *ER* TAB PO SCH (20:18)
[2022-11-13] MEDS: traZODone 50 MG TAB PO PRN (20:18)
[2022-11-14 05:55] VITALS: BP 112/62; TEMP 97.4; O2SAT 94
[2022-11-14] MEDS: DOXYCYCLINE HYCLATE 100MG TABLET PO SCH ×2 (07:58→19:58)
[2022-11-14] MEDS: NICOTINE POLACRILEX 2 MG GUM PO PRN ×3 (07:59→18:18)
[2022-11-14] MEDS: PALIPERIDONE 3MG ER TAB (INVEGA) PO SCH ×2 (07:59→19:58)
[2022-11-14 18:06] VITALS: BP 122/70; TEMP 96.9
[2022-11-14] MEDS: traZODone 50 MG TAB PO PRN (19:58)
[2022-11-14] MEDS: diphenhydrAMINE 25MG CAP PO PRN (20:01)
[2022-11-14] MEDS: DIVALPROEX 250MG *ER* TAB PO SCH (20:01)
[2022-11-15 06:59] VITALS: BP 159/87; TEMP 97.8; O2SAT 97
[2022-11-15] MEDS: NICOTINE POLACRILEX 2 MG GUM PO PRN ×2 (07:57→12:48)
[2022-11-15] MEDS: DOXYCYCLINE HYCLATE 100MG TABLET PO SCH ×2 (08:01→20:06)
[2022-11-15] MEDS: PALIPERIDONE 3MG ER TAB (INVEGA) PO SCH ×2 (08:01→20:06)
[2022-11-15] MEDS ORDERED: PALIPERIDONE PAL 156MG/1ML INJ(INVEGA)(FREE PSY INPT ONLY) IM ONE (09:00)
[2022-11-15 12:40] VITALS: BP 159/87; TEMP 97.8; O2SAT 97
[2022-11-15 16:45] VITALS: BP 110/58; TEMP 97.1; O2SAT 100
[2022-11-15] MEDS: DIVALPROEX 250MG *ER* TAB PO SCH (20:06)
[2022-11-16 06:28] VITALS: BP 130/62; TEMP 97.9; O2SAT 98
[2022-11-16] MEDS: PALIPERIDONE 3MG ER TAB (INVEGA) PO SCH ×2 (08:01→20:07)
[2022-11-16] MEDS: NICOTINE POLACRILEX 2 MG GUM PO PRN ×2 (08:02→18:20)
[2022-11-16] MEDS: DOXYCYCLINE HYCLATE 100MG TABLET PO SCH ×2 (08:02→20:07)
[2022-11-16 17:54] VITALS: BP 121/70; TEMP 97.8; O2SAT 98
[2022-11-16] MEDS: DIVALPROEX 500MG *ER* TAB PO SCH (20:07)
[2022-11-16] MEDS: traZODone 50 MG TAB PO PRN (20:07)
[2022-11-16] MEDS: diphenhydrAMINE 25MG CAP PO PRN (22:15)
[2022-11-17 06:24] VITALS: BP 117/57; TEMP 97.8; O2SAT 95
[2022-11-17] MEDS: PALIPERIDONE 3MG ER TAB (INVEGA) PO SCH ×2 (08:55→20:05)
[2022-11-17] MEDS: DOXYCYCLINE HYCLATE 100MG TABLET PO SCH (08:55)
[2022-11-17] MEDS: NICOTINE POLACRILEX 2 MG GUM PO PRN ×2 (08:57→18:29)
[2022-11-17 18:00] VITALS: BP 136/68; TEMP 96
[2022-11-17] MEDS: DIVALPROEX 500MG *ER* TAB PO SCH (20:05)
[2022-11-17] MEDS: diphenhydrAMINE 25MG CAP PO PRN (20:05)
[2022-11-17] MEDS: traZODone 50 MG TAB PO PRN (20:05)
[2022-11-18 06:48] VITALS: BP 111/64; TEMP 97.1; O2SAT 96
[2022-11-18] MEDS: PALIPERIDONE 3MG ER TAB (INVEGA) PO SCH ×2 (08:31→20:46)
[2022-11-18] MEDS: NICOTINE POLACRILEX 2 MG GUM PO PRN ×3 (08:32→18:43)
[2022-11-18 18:00] VITALS: BP 125/78; TEMP 96.9
[2022-11-18] MEDS: traZODone 50 MG TAB PO PRN (20:46)
[2022-11-18] MEDS: DIVALPROEX 500MG *ER* TAB PO SCH (20:46)
[2022-11-18] MEDS: diphenhydrAMINE 25MG CAP PO PRN (20:46)
[2022-11-19 06:47] VITALS: BP 111/72; TEMP 97.1; O2SAT 96
[2022-11-19] MEDS: PALIPERIDONE 3MG ER TAB (INVEGA) PO SCH ×2 (08:36→21:45)
[2022-11-19] MEDS: NICOTINE 21MG/24HR 1 EA TRANSDERMAL TD SCH ×2 (09:00→11:51)
[2022-11-19] MEDS: OLANZapine ORAL DISINTEGRATING TAB 5MG PO PRN ×2 (10:14→14:37)
[2022-11-19 18:02] VITALS: BP 134/73; TEMP 97.5; O2SAT 98
[2022-11-19] MEDS: DIVALPROEX 500MG *ER* TAB PO SCH (21:46)
[2022-11-20] MEDS: OLANZapine ORAL DISINTEGRATING TAB 5MG PO PRN (06:20)
[2022-11-20 06:51] VITALS: BP 123/78; TEMP 97.9; O2SAT 98
[2022-11-20] MEDS: PALIPERIDONE 3MG ER TAB (INVEGA) PO SCH ×2 (09:07→20:03)
[2022-11-20] MEDS: NICOTINE 21MG/24HR 1 EA TRANSDERMAL TD SCH (09:07)
[2022-11-20 16:44] VITALS: BP 120/71; TEMP 97.8; O2SAT 100
[2022-11-20] MEDS: diphenhydrAMINE 25MG CAP PO PRN (20:03)
[2022-11-20] MEDS: traZODone 50 MG TAB PO PRN (20:03)
[2022-11-20] MEDS: DIVALPROEX 500MG *ER* TAB PO SCH (20:04)
[2022-11-21 06:46] VITALS: BP 137/78; TEMP 97.7; O2SAT 100
[2022-11-21] MEDS: NICOTINE 21MG/24HR 1 EA TRANSDERMAL TD SCH (08:32)
[2022-11-21 17:20] VITALS: BP 114/79; TEMP 98; O2SAT 100
[2022-11-21] MEDS: DIVALPROEX 500MG *ER* TAB PO SCH (20:06)
[2022-11-21] MEDS: diphenhydrAMINE 25MG CAP PO PRN (21:24)
[2022-11-21] MEDS: traZODone 50 MG TAB PO PRN (21:25)
[2022-11-21] MEDS: OLANZapine ORAL DISINTEGRATING TAB 5MG PO PRN (23:51)
[2022-11-22 06:27] VITALS: BP 99/58; TEMP 98.7; O2SAT 100
[2022-11-22] MEDS: NICOTINE 21MG/24HR 1 EA TRANSDERMAL TD SCH (09:00)
[2022-11-22] MEDS ORDERED: NICO1PAT15 TD (09:23)
[2022-11-22] MEDS ORDERED: DIVA500T9 PO (09:23)
[2022-11-22] MEDS ORDERED: TRAZ-186 PO (09:23)
[2022-11-22] MEDS ORDERED: BENZ0.5T2 PO (09:23)
[2022-11-22] MEDS ORDERED: INVE234I IM (09:27)
[2022-11-22] MEDS ORDERED: DEPA500T2 PO (16:40)
== END 2022-11-22 13:50 | disposition home or self-care (01) | DRG 750 ==
LOC: M ED 15:24 → M ED INP 22:20 → M PSY 11-02 00:17
PROVIDERS: ADMIT Psychiatry & Neurology Psychiatry; ATTEND Student in an Organized Health Care Education/Training Program
DX: F25.0 Schizoaffective disorder, bipolar type (principal); F70 Mild intellectual disabilities; F17.200 Nicotine dependence, unspecified, uncomplicated; F12.90 Cannabis use, unspecified, uncomplicated; F15.90 Other stimulant use, unspecified, uncomplicated; F10.10 Alcohol abuse, uncomplicated; Z88.8 Allergy status to other drugs, medicaments and biological substances; Z79.899 Other long term (current) drug therapy; E05.80 Other thyrotoxicosis without thyrotoxic crisis or storm

== ENCOUNTER 2022-11-27 13:05 | Emergency (ER) | payer MEDICAID, OTHER ==
[~2022-11-27 13:05] MED LIST changes: +BENZ0.5T2 PO; +DIVA250T7 PO; +DIVA500T9 PO; +INVE234I IM; +NICO1PAT15 TD; +TRAZ-186 PO
[2022-11-27 14:09] LABS: HEMATOCRIT 39.3 % (36.0-47.0); HEMOGLOBIN 12.8 g/dl (12.0-15.5); MEAN CORPUSCULAR HEMOGLOBIN 30.8 pg (27.0-33.0); MEAN CORPUSCULAR HGB CONC 32.6 g/dl (32.0-36.5); MEAN CORPUSCULAR VOLUME 94.5 fl (80.0-96.0); PLATELET COUNT, AUTOMATED 293 10^3/uL (150-450); RED BLOOD COUNT 4.16 10^6/uL (4.00-5.40); WHITE BLOOD COUNT 12.6 10^3/uL (4.0-10.0)
[2022-11-27 14:27] LABS: ETHYL ALCOHOL (ETHANOL) < 0.003 % (0.000-0.010)
[2022-11-27 14:28] LABS: ACETAMINOPHEN LEVEL < 2.0 UG/ML (10.0-20.0)
[2022-11-27 14:29] LABS: ALBUMIN 3.9 G/DL (3.2-5.2); ALKALINE PHOSPHATASE 74 U/L (46-116); ALT/SGPT < 9 U/L (7.0-40); AST/SGOT 21 U/L (<34); BILIRUBIN,DIRECT 0.1 MG/DL (<0.4); BILIRUBIN,TOTAL 0.4 MG/DL (0.3-1.2); BLOOD UREA NITROGEN 8 MG/DL (9-23); CARBON DIOXIDE LEVEL 27 MMOL/L (20-31); CHLORIDE LEVEL 105 MMOL/L (98-107); CREATININE FOR GFR 0.79 MG/DL (0.55-1.30); GLOMERULAR FILTRATION RATE > 60.0 (>60); GLUCOSE, FASTING 96 MG/DL (60-100); HCG, SERUM QUALITATIVE NEGATIVE (NEGATIVE); POTASSIUM SERUM 4.5 MMOL/L (3.5-5.1); SODIUM LEVEL 139 MMOL/L (136-145); TOTAL PROTEIN 7.8 G/DL (5.7-8.2)
[2022-11-27 14:33] LABS: THYROID STIMULATING HORMONE 0.899 uIU/ML (0.55-4.78)
[2022-11-27 14:50] LABS: AMPHETAMINES LEVEL URINE NEGATIVE (NEGATIVE); BARBITURATES URINE NEGATIVE (NEGATIVE); BENZODIAZEPINES URINE NEGATIVE (NEGATIVE); COCAINE METABOLITE URINE NEGATIVE (NEGATIVE); METHADONE URINE NEGATIVE (NEGATIVE); OPIATES URINE NEGATIVE (NEGATIVE); PHENCYCLIDINE URINE NEGATIVE (NEGATIVE)
[2022-11-27 14:51] LABS: CANNABINOIDS URINE POSITIVE (NEGATIVE)
[2022-11-27 18:13] VITALS: BP 138/78; TEMP 97.5; O2SAT 98
[2022-11-28] MEDS ORDERED: DIPH-435 PO (14:41)
== END 2022-11-27 18:15 | disposition home or self-care (01) ==
LOC: M ED 13:05
DX: F25.9 Schizoaffective disorder, unspecified (principal); F70 Mild intellectual disabilities; F19.10 Other psychoactive substance abuse, uncomplicated; F12.10 Cannabis abuse, uncomplicated; Z88.1 Allergy status to other antibiotic agents; Z79.899 Other long term (current) drug therapy

== ENCOUNTER 2022-11-28 10:38 | Inpatient (IN) | payer MEDICAID, OTHER ==
[~2022-11-28] VITALS: Ht 157.5 cm; Wt 97.7 kg
[~2022-11-28 10:38] MED LIST changes: +NICOTINE 14 MG/24 HR TRANSDERMAL TD SCH
[2022-11-28 13:17] LABS: AMPHETAMINES LEVEL URINE NEGATIVE (NEGATIVE); BARBITURATES URINE NEGATIVE (NEGATIVE); BENZODIAZEPINES URINE NEGATIVE (NEGATIVE); COCAINE METABOLITE URINE NEGATIVE (NEGATIVE); METHADONE URINE NEGATIVE (NEGATIVE); OPIATES URINE NEGATIVE (NEGATIVE); PHENCYCLIDINE URINE NEGATIVE (NEGATIVE)
[2022-11-28 13:30] LABS: CANNABINOIDS URINE POSITIVE (NEGATIVE)
[2022-11-28 13:47] LABS: HEMATOCRIT 38.7 % (36.0-47.0); HEMOGLOBIN 12.5 g/dl (12.0-15.5); MEAN CORPUSCULAR HEMOGLOBIN 30.5 pg (27.0-33.0); MEAN CORPUSCULAR HGB CONC 32.3 g/dl (32.0-36.5); MEAN CORPUSCULAR VOLUME 94.4 fl (80.0-96.0); PLATELET COUNT, AUTOMATED 284 10^3/uL (150-450); WHITE BLOOD COUNT 11.9 10^3/uL (4.0-10.0)
[2022-11-28 13:50] LABS: ETHYL ALCOHOL (ETHANOL) 0.004 % (0.000-0.010)
[2022-11-28 13:51] LABS: SALICYLATE LEVEL < 3.0 MG/DL (<30)
[2022-11-28 13:52] LABS: ACETAMINOPHEN LEVEL < 2.0 UG/ML (10.0-20.0); ALBUMIN 3.8 G/DL (3.2-5.2); ALKALINE PHOSPHATASE 73 U/L (46-116); ALT/SGPT 10 U/L (7.0-40); AST/SGOT 18 U/L (<34); BILIRUBIN,DIRECT 0.1 MG/DL (<0.4); BILIRUBIN,TOTAL 0.4 MG/DL (0.3-1.2); BLOOD UREA NITROGEN 9 MG/DL (9-23); CALCIUM LEVEL 8.8 MG/DL (8.5-10.1); CARBON DIOXIDE LEVEL 26 MMOL/L (20-31); CHLORIDE LEVEL 106 MMOL/L (98-107); CREATININE FOR GFR 0.67 MG/DL (0.55-1.30); GLOMERULAR FILTRATION RATE > 60.0 (>60); GLUCOSE, FASTING 91 MG/DL (60-100); SODIUM LEVEL 139 MMOL/L (136-145); TOTAL PROTEIN 7.8 G/DL (5.7-8.2)
[2022-11-28 13:53] LABS: THYROID STIMULATING HORMONE 0.535 uIU/ML (0.55-4.78)
[2022-11-28 13:57] LABS: HCG, SERUM QUALITATIVE NEGATIVE (NEGATIVE)
[2022-11-28] MEDS ORDERED: ACETAMINOPHEN TAB 650MG DOSE (2X325MG) PO PRN (14:00)
[2022-11-28] MEDS ORDERED: IBUPROFEN 400MG TAB PO PRN (14:00)
[2022-11-28] MEDS ORDERED: MOM 30ML SUSPENSION UDC PO PRN (14:00)
[2022-11-28] MEDS ORDERED: MAALOX 30 ML SUSP *UDC PO PRN (14:00)
[2022-11-28] MEDS ORDERED: MED REC IN PROGRESS XX SCH (14:15)
[2022-11-28] MEDS ORDERED: DIPH-435 PO (14:41)
[2022-11-28 14:43] LABS: VALPROIC ACID (DEPAKOTE) 60.7 UG/ML (50.0-100.0)
[2022-11-28] MEDS ORDERED: HOME MED LIST COMPLETE! XX SCH (14:45)
[2022-11-28] MEDS: diphenhydrAMINE 25MG CAP PO PRN (18:52)
[2022-11-28] MEDS ORDERED: NICOTINE 21MG/24HR 1 EA TRANSDERMAL TD PRN (20:50)
[2022-11-28] MEDS: NICOTINE POLACRILEX 2 MG GUM PO PRN (21:06)
[2022-11-28] MEDS: RALTEGRAVIR 400 MG TAB (ISENTRESS) PO SCH (21:24)
[2022-11-28] MEDS: TRUVADA 200MG/300MG TABLET PO SCH (21:24)
[2022-11-28] MEDS ORDERED: ULIPRISTAL ACETATE 30MG TAB (ELLA) PO ONE (21:35)
[2022-11-28 23:19] LABS: HEPATITIS B SURFACE ANTIBODY NEGATIVE (POSITIVE)
[2022-11-28 23:29] LABS: GC DNA AMPLIFICATION NEGATIVE (NEGATIVE)
[2022-11-28 23:32] LABS: HEPATITIS B SURFACE ANTIGEN NEGATIVE (NEGATIVE)
[2022-11-28 23:44] LABS: HIV 1&2 SCREEN NEGATIVE (NEGATIVE)
[2022-11-29] MEDS: DOCUSATE SODIUM 100MG CAPSULE PO SCH ×3 (02:18→20:48)
[2022-11-29] MEDS: NICOTINE POLACRILEX 2 MG GUM PO PRN (02:20)
[2022-11-29 06:50] VITALS: BP 110/65; TEMP 96.9; O2SAT 97
[2022-11-29] MEDS: RALTEGRAVIR 400 MG TAB (ISENTRESS) PO SCH ×2 (09:14→20:48)
[2022-11-29] MEDS: NICOTINE 14 MG/24 HR TRANSDERMAL TD PRN (10:44)
[2022-11-29 18:52] VITALS: BP 142/86; TEMP 97
[2022-11-29] MEDS: diphenhydrAMINE 25MG CAP PO PRN (18:52)
[2022-11-29] MEDS: TRUVADA 200MG/300MG TABLET PO SCH (20:48)
[2022-11-29] MEDS ORDERED: DIVALPROEX 500MG *ER* TAB PO ONE (21:00)
[2022-11-29] MEDS: traZODone 50 MG TAB PO PRN (21:24)
[2022-11-30] MEDS: diphenhydrAMINE 25MG CAP PO PRN ×2 (01:31→21:37)
[2022-11-30 06:41] VITALS: BP 135/87; TEMP 97; O2SAT 97
[2022-11-30] MEDS: RALTEGRAVIR 400 MG TAB (ISENTRESS) PO SCH ×2 (08:19→21:00)
[2022-11-30] MEDS: NICOTINE 14 MG/24 HR TRANSDERMAL TD PRN (08:20)
[2022-11-30] MEDS: DOCUSATE SODIUM 100MG CAPSULE PO SCH ×2 (08:22→21:00)
[2022-11-30 18:50] VITALS: BP 114/74; TEMP 97.8
[2022-11-30] MEDS: DIVALPROEX 500MG *ER* TAB PO SCH (21:00)
[2022-11-30] MEDS: TRUVADA 200MG/300MG TABLET PO SCH (21:00)
[2022-11-30] MEDS: traZODone 50 MG TAB PO PRN (21:37)
[2022-12-01] MEDS: RALTEGRAVIR 400 MG TAB (ISENTRESS) PO SCH ×2 (10:55→21:22)
[2022-12-01] MEDS: DOCUSATE SODIUM 100MG CAPSULE PO SCH ×2 (10:56→21:22)
[2022-12-01] MEDS: NICOTINE 14 MG/24 HR TRANSDERMAL TD PRN (10:56)
[2022-12-01] MEDS: TRUVADA 200MG/300MG TABLET PO SCH (21:22)
[2022-12-01] MEDS: DIVALPROEX 500MG *ER* TAB PO SCH (21:23)
[2022-12-01] MEDS: diphenhydrAMINE 25MG CAP PO PRN (22:12)
[2022-12-01] MEDS: traZODone 50 MG TAB PO PRN (22:12)
[2022-12-02] MEDS: DOCUSATE SODIUM 100MG CAPSULE PO SCH ×2 (14:47→20:14)
[2022-12-02] MEDS: RALTEGRAVIR 400 MG TAB (ISENTRESS) PO SCH ×2 (14:47→20:12)
[2022-12-02] MEDS: diphenhydrAMINE 25MG CAP PO PRN (15:28)
[2022-12-02 18:12] VITALS: BP 130/65; TEMP 96.9
[2022-12-02] MEDS: DIVALPROEX 500MG *ER* TAB PO SCH (20:12)
[2022-12-02] MEDS: traZODone 50 MG TAB PO PRN (20:12)
[2022-12-02] MEDS: TRUVADA 200MG/300MG TABLET PO SCH (20:13)
[2022-12-03 06:04] VITALS: BP 125/85; TEMP 97.3; O2SAT 98
[2022-12-03] MEDS: RALTEGRAVIR 400 MG TAB (ISENTRESS) PO SCH ×2 (08:47→20:01)
[2022-12-03] MEDS: DOCUSATE SODIUM 100MG CAPSULE PO SCH ×2 (08:47→20:03)
[2022-12-03 16:05] VITALS: BP 131/64; TEMP 96.3; O2SAT 97
[2022-12-03] MEDS: DIVALPROEX 500MG *ER* TAB PO SCH (20:01)
[2022-12-03] MEDS: TRUVADA 200MG/300MG TABLET PO SCH (20:02)
[2022-12-04 06:28] VITALS: BP 129/68; TEMP 97.1; O2SAT 100
[2022-12-04] MEDS: DOCUSATE SODIUM 100MG CAPSULE PO SCH ×2 (08:20→20:03)
[2022-12-04] MEDS: RALTEGRAVIR 400 MG TAB (ISENTRESS) PO SCH ×2 (08:20→20:03)
[2022-12-04 17:04] VITALS: BP 148/67; TEMP 97; O2SAT 98
[2022-12-04] MEDS: DIVALPROEX 500MG *ER* TAB PO SCH (20:03)
[2022-12-04] MEDS: TRUVADA 200MG/300MG TABLET PO SCH (20:04)
[2022-12-04] MEDS: traZODone 50 MG TAB PO PRN (23:18)
[2022-12-04] MEDS: diphenhydrAMINE 25MG CAP PO PRN (23:18)
[2022-12-05 06:05] VITALS: BP 112/61; TEMP 98; O2SAT 97
[2022-12-05] MEDS: RALTEGRAVIR 400 MG TAB (ISENTRESS) PO SCH ×2 (08:30→20:23)
[2022-12-05] MEDS: DOCUSATE SODIUM 100MG CAPSULE PO SCH ×2 (08:30→20:22)
[2022-12-05 16:55] VITALS: BP 129/74; TEMP 97.2; O2SAT 99
[2022-12-05] MEDS: DIVALPROEX 500MG *ER* TAB PO SCH (20:23)
[2022-12-05] MEDS: TRUVADA 200MG/300MG TABLET PO SCH (20:23)
[2022-12-05] MEDS: traZODone 50 MG TAB PO PRN (23:13)
[2022-12-06 06:34] VITALS: BP 107/52; TEMP 97; O2SAT 99
[2022-12-06] MEDS: DOCUSATE SODIUM 100MG CAPSULE PO SCH (08:10)
[2022-12-06] MEDS: RALTEGRAVIR 400 MG TAB (ISENTRESS) PO SCH (08:11)
[2022-12-06] MEDS ORDERED: COLA100C5 PO ×2 (12:41→14:02)
[2022-12-06] MEDS ORDERED: NICO1PAT15 TD (12:41)
[2022-12-06] MEDS ORDERED: RALT40TA PO ×3 (12:41→16:27)
[2022-12-06] MEDS ORDERED: INVE234I IM ×2 (12:41→14:02)
[2022-12-06] MEDS ORDERED: TRAZ-186 PO (12:41)
[2022-12-06] MEDS ORDERED: BENZ0.5T2 PO ×2 (12:41→14:08)
[2022-12-06] MEDS ORDERED: DEPA500T2 PO ×2 (12:41→14:02)
[2022-12-06] MEDS ORDERED: EMTR1TAB3 PO ×3 (12:41→16:59)
[2022-12-06] MEDS ORDERED: NICO2GUM MT ×3 (13:27→16:27)
[2022-12-06] MEDS ORDERED: TRAZ-252 PO (14:02)
== END 2022-12-06 14:40 | disposition home or self-care (01) | DRG 750 ==
LOC: M ED 10:38 → M ED INP 13:59 → M PSY 16:30
PROVIDERS: ADMIT Student in an Organized Health Care Education/Training Program; ATTEND Student in an Organized Health Care Education/Training Program
DX: F25.0 Schizoaffective disorder, bipolar type (principal); D72.829 Elevated white blood cell count, unspecified; F17.200 Nicotine dependence, unspecified, uncomplicated; F10.10 Alcohol abuse, uncomplicated; F15.90 Other stimulant use, unspecified, uncomplicated; F12.90 Cannabis use, unspecified, uncomplicated; Z88.8 Allergy status to other drugs, medicaments and biological substances; Z79.899 Other long term (current) drug therapy; K59.00 Constipation, unspecified; Z91.410 Personal history of adult physical and sexual abuse

== ENCOUNTER → 2023-02-07 | Outpatient (CLI) | payer OTHER ==
[~2023-02-07] MED LIST changes: +COLA100C5 PO; +DIPH-435 PO; +EMTR1TAB3 PO; +NICO2GUM MT; -NICOTINE 14 MG/24 HR TRANSDERMAL TD SCH; +RALT40TA PO
[2023-02-07 11:25] LABS: BASO # 0.1 10^3/uL (0.0-0.2); BASO % 0.8 % (0.0-1.0); EOS # 0.5 10^3/uL (0.0-0.5); EOS % 6.1 % (0.0-3.0); HEMATOCRIT 40.9 % (36.0-47.0); LYMPH # 3.9 10^3/uL (1.5-5.0); LYMPH % 43.7 % (24.0-44.0); MEAN CORPUSCULAR HEMOGLOBIN 30.7 pg (27.0-33.0); MEAN CORPUSCULAR HGB CONC 31.8 g/dl (32.0-36.5); MEAN CORPUSCULAR VOLUME 96.5 fl (80.0-96.0); MONO % 11.2 % (2.0-8.0); NEUTROPHILS # 3.4 10^3/uL (1.5-8.5); NEUTROPHILS % 38.1 % (36.0-66.0); PLATELET COUNT, AUTOMATED 275 10^3/uL (150-450); RED BLOOD COUNT 4.24 10^6/uL (4.00-5.40); WHITE BLOOD COUNT 8.9 10^3/uL (4.0-10.0)
[2023-02-07 11:36] LABS: VALPROIC ACID (DEPAKOTE) 51.4 UG/ML (50.0-100.0)
[2023-02-07 11:37] LABS: THYROID STIMULATING HORMONE 2.832 uIU/ML (0.55-4.78); TOTAL 25(OH) VITAMIN D 18.3 NG/ML (20.0-100.0)
[2023-02-07 11:38] LABS: ALBUMIN 3.8 G/DL (3.2-5.2); ALKALINE PHOSPHATASE 85 U/L (46-116); ALT/SGPT 19 U/L (7.0-40); AST/SGOT 9 U/L (<34); BILIRUBIN,TOTAL 0.3 MG/DL (0.3-1.2); BLOOD UREA NITROGEN 17 MG/DL (9-23); CALCIUM LEVEL 9.4 MG/DL (8.5-10.1); CARBON DIOXIDE LEVEL 27 MMOL/L (20-31); CHLORIDE LEVEL 106 MMOL/L (98-107); CREATININE FOR GFR 0.74 MG/DL (0.55-1.30); FOLATE 20.85 NG/ML (>5.4); GLOMERULAR FILTRATION RATE > 60.0 (>60); GLUCOSE, FASTING 94 MG/DL (60-100); SODIUM LEVEL 140 MMOL/L (136-145); TOTAL PROTEIN 7.6 G/DL (5.7-8.2)
[2023-02-07 11:40] LABS: VITAMIN B12 LEVEL 608 PG/ML (211-911)
[2023-02-07 11:44] LABS: HEMOGLOBIN A1c 4.9 % (4.0-6.0)
== END ==
LOC: M PLALAB 08:37
PROVIDERS: ATTEND Specialist
DX: F25.0 Schizoaffective disorder, bipolar type (principal)

== ENCOUNTER → 2023-03-26 | Outpatient (CLI) | payer OTHER ==
[~2023-03-26] MED LIST changes: +PROHANCE 279.3MG/ML 5ML VIAL ONE
== END ==
LOC: M PLAIMG 14:12
PROVIDERS: ATTEND Physician Assistant
DX: N64.52 Nipple discharge (principal); E22.1 Hyperprolactinemia

== ENCOUNTER → 2023-04-16 | Outpatient (REF) | payer OTHER ==
[~2023-04-16] MED LIST changes: -PROHANCE 279.3MG/ML 5ML VIAL ONE
[2023-04-16 13:26] LABS: ALBUMIN 3.6 G/DL (3.2-5.2); ALKALINE PHOSPHATASE 91 U/L (46-116); ALT/SGPT 13 U/L (7.0-40); AST/SGOT < 8 U/L (<34); BILIRUBIN,TOTAL 0.3 MG/DL (0.3-1.2); BLOOD UREA NITROGEN 13 MG/DL (9-23); CALCIUM LEVEL 8.9 MG/DL (8.5-10.1); CARBON DIOXIDE LEVEL 25 MMOL/L (20-31); CHLORIDE LEVEL 106 MMOL/L (98-107); CREATININE FOR GFR 0.78 MG/DL (0.55-1.30); GLOMERULAR FILTRATION RATE > 60.0 (>60); GLUCOSE, FASTING 92 MG/DL (60-100); POTASSIUM SERUM 4.4 MMOL/L (3.5-5.1); SODIUM LEVEL 140 MMOL/L (136-145); TOTAL PROTEIN 7.6 G/DL (5.7-8.2)
[2023-04-16 13:27] LABS: THYROID STIMULATING HORMONE 1.146 uIU/ML (0.55-4.78)
[2023-04-16 14:12] LABS: HEMOGLOBIN A1c 4.9 % (4.0-6.0)
== END ==
LOC: M LAB REF 12:19
PROVIDERS: ATTEND Pediatrics
DX: E66.01 Morbid (severe) obesity due to excess calories (principal)